=== PATIENT | male | born 1950 ===

== ENCOUNTER 2020-05-14 08:52 | Outpatient (REF) | payer OTHER, SELFPAY ==
[2020-05-14 13:39] LABS: MANUAL DIFF FLAG NO
[2020-05-14 13:58] LABS: Basophils Percent Auto 0.4 % (0-2); Eosinophils Absolute Auto 0.4 X10*3/uL (0.0-0.4); Eosinophils Percent Auto 5.9 % (0-4); Hematocrit 41.6 % (42-52); Hemoglobin 13.6 g/dl (14.0-18.0); Imm Gran Abs Auto 0.05 X10*3/uL (0.00-0.03); Imm Gran Pct Auto 0.7 % (0.0-0.4); Lymphocytes Absolute Auto 1.9 X10*3/uL (1.2-4.9); Lymphocytes Percent Auto 25.3 % (20-40); Mean Corpuscular HGB Conc 32.7 g/dl (31.0-36.0); Mean Corpuscular Hemoglobin 27.7 pg (27.0-33.0); Mean Corpuscular Volume 84.7 fL (80-98); Mean Platelet Volume 11.4 fL (9.4-12.4); Monocytes Absolute Auto 0.9 X10*3/uL (0.1-1.2); Monocytes Percent Auto 11.8 % (2-11); Neutrophils Absolute Auto 4.1 X10*3/uL (2.0-8.3); Neutrophils Percent Auto 55.9 % (45-73); Platelet Count 225 X10*3/uL (160-400); Red Blood Count 4.91 X10*6/uL (4.60-5.80); Red Cell Distribution Width 13.3 % (11.0-16.0); White Blood Count 7.3 X10*3/uL (4.8-10.8)
[2020-05-14 14:08] LABS: Glucose Urine UA NEG (NEG); Leukocyte Esterase Urine NEG (NEG); Nitrite Urine NEG (NEG); Specific Gravity - Urine 1.025 (1.005-1.025); Urine Blood NEG (NEG); Urine Ketones NEG (NEG); Urine Protein NEG (NEG-TRACE)
[2020-05-14 14:23] LABS: Appearance Urine CLEAR; Color Urine YELLOW
[2020-05-14 14:26] LABS: Alanine Aminotransferase 16 U/L (0-40); Alkaline Phosphatase 74 U/L (39-117); Anion Gap 10 (12-20); Aspartate Amino Transferase 18 U/L (5-37); Bilirubin Total 0.8 mg/dL (0.0-1.0); Blood Urea Nitrogen 16 mg/dL (9-16); Calcium 8.4 mg/dL (8.4-10.2); Carbon Dioxide 32 mmol/L (22-29); Chloride 103 mmol/L (96-108); Cholesterol 143 mg/dL; Estimated Glomerular Filt Rate > 60; Glucose Fasting 107 mg/dL (60-99); HDL Cholesterol 42 mg/dL; LDL Cholesterol Calculated 84 mg/dl; Potassium 4.2 mmol/L (3.3-5.1); Sodium 141 mmol/L (135-145); Total Protein 6.7 g/dL (6.5-8.0); Triglycerides 88 mg/dL; Uric Acid 8.7 mg/dL (3.4-7.0)
[2020-05-14 14:47] LABS: Prostate Specific Antigen Scr 0.87 ng/mL (<0.05-4.0); TSH reflex Free T4 1.55 uIU/mL (0.32-4.0)
== END 2020-05-14 08:53 | disposition home or self-care (01) ==
LOC: HO.10HDL 08:52
PROVIDERS: Visit Provider Internal Medicine
DX: Z00.00 Encounter for general adult medical examination without abnormal findings (principal); I10 Essential (primary) hypertension; I25.10 Atherosclerotic heart disease of native coronary artery without angina pectoris; L81.9 Disorder of pigmentation, unspecified; E78.00 Pure hypercholesterolemia, unspecified; M10.9 Gout, unspecified; R73.01 Impaired fasting glucose; E66.3 Overweight
CPT/HCPCS: 36415; 80053; 80061; 81003; 84153; 84443; 84550; 85025

== ENCOUNTER 2020-08-21 07:38 | Outpatient (REF) | payer OTHER, SELFPAY ==
[2020-08-21 10:27] LABS: MANUAL DIFF FLAG NO
[2020-08-21 10:29] LABS: Basophils Percent Auto 0.2 % (0-2); Eosinophils Absolute Auto 0.5 X10*3/uL (0.0-0.4); Eosinophils Percent Auto 6.6 % (0-4); Hematocrit 42.1 % (42-52); Hemoglobin 13.9 g/dl (14.0-18.0); Imm Gran Abs Auto 0.04 X10*3/uL (0.00-0.03); Imm Gran Pct Auto 0.5 % (0.0-0.4); Lymphocytes Absolute Auto 1.8 X10*3/uL (1.2-4.9); Lymphocytes Percent Auto 22.1 % (20-40); Mean Corpuscular Volume 84.7 fL (80-98); Mean Platelet Volume 11.9 fL (9.4-12.4); Monocytes Absolute Auto 0.9 X10*3/uL (0.1-1.2); Monocytes Percent Auto 10.5 % (2-11); Neutrophils Absolute Auto 4.8 X10*3/uL (2.0-8.3); Neutrophils Percent Auto 60.1 % (45-73); Platelet Count 192 X10*3/uL (160-400); Red Blood Count 4.97 X10*6/uL (4.60-5.80); Red Cell Distribution Width 13.7 % (11.0-16.0); White Blood Count 8.1 X10*3/uL (4.8-10.8)
[2020-08-21 10:40] LABS: Appearance Urine CLOUDY; Color Urine YELLOW; Glucose Urine UA NEG (NEG); Leukocyte Esterase Urine NEG (NEG); Nitrite Urine NEG (NEG); Specific Gravity - Urine >= 1.030 (1.005-1.025); Urine Blood NEG (NEG); Urine Ketones NEG (NEG); Urine Protein NEG (NEG-TRACE)
[2020-08-21 10:54] LABS: Estimated Average Glucose 146 mg/dL; Hemoglobin A1c % 6.7 %
[2020-08-21 11:03] LABS: Alanine Aminotransferase 16 U/L (0-40); Albumin Level 4.2 g/dL (3.5-5.0); Alkaline Phosphatase 68 U/L (39-117); Anion Gap 13 (12-20); Aspartate Amino Transferase 16 U/L (5-37); Bilirubin Total 0.9 mg/dL (0.0-1.0); Blood Urea Nitrogen 20 mg/dL (9-16); Calcium 8.7 mg/dL (8.4-10.2); Carbon Dioxide 26 mmol/L (22-29); Chloride 110 mmol/L (96-108); Cholesterol 168 mg/dL; Estimated Glomerular Filt Rate 60; Glucose Fasting 118 mg/dL (60-99); HDL Cholesterol 42 mg/dL; LDL Cholesterol Calculated 105 mg/dl; Potassium 4.2 mmol/L (3.3-5.1); Sodium 145 mmol/L (135-145); Total Protein 6.9 g/dL (6.5-8.0); Triglycerides 106 mg/dL; Uric Acid 9.8 mg/dL (3.4-7.0)
[2020-08-21 11:18] LABS: TSH reflex Free T4 1.84 uIU/mL (0.32-4.0)
== END 2020-08-21 07:39 | disposition home or self-care (01) ==
LOC: HO.10HDL 07:38
PROVIDERS: Visit Provider Internal Medicine
DX: E66.3 Overweight (principal); E78.00 Pure hypercholesterolemia, unspecified; I10 Essential (primary) hypertension; M10.00 Idiopathic gout, unspecified site; I25.10 Atherosclerotic heart disease of native coronary artery without angina pectoris; R73.01 Impaired fasting glucose; M10.9 Gout, unspecified
CPT/HCPCS: 36415; 80053; 80061; 81003; 83036; 84443; 84550; 85025

== ENCOUNTER → 2020-11-07 10:50 | Outpatient (BNVA) | payer OTHER, SELFPAY | PROVIDERS: PCP Internal Medicine; Visit Provider Physician Assistant | DX: S93.492D Sprain of other ligament of left ankle, subsequent encounter (principal); W21.89XD Striking against or struck by other sports equipment, subsequent encounter | CPT/HCPCS: 73610; 73630; 99203 ==

== ENCOUNTER → 2020-11-09 09:32 | Outpatient (BNVA) | payer OTHER, SELFPAY | PROVIDERS: Visit Provider Orthopaedic Surgery | DX: S93.402A Sprain of unspecified ligament of left ankle, initial encounter (principal) | CPT/HCPCS: 99202 ==

== ENCOUNTER → 2020-11-23 10:01 | Outpatient (BNVA) | payer OTHER, SELFPAY | PROVIDERS: Visit Provider Physician Assistant | DX: S93.402A Sprain of unspecified ligament of left ankle, initial encounter (principal); X58.XXXA Exposure to other specified factors, initial encounter; Y93.9 Activity, unspecified; Y92.9 Unspecified place or not applicable; Y99.8 Other external cause status; I10 Essential (primary) hypertension; I25.10 Atherosclerotic heart disease of native coronary artery without angina pectoris; E11.9 Type 2 diabetes mellitus without complications; E78.00 Pure hypercholesterolemia, unspecified; M10.9 Gout, unspecified; E66.3 Overweight; Z68.29 Body mass index [BMI] 29.0-29.9, adult; L81.9 Disorder of pigmentation, unspecified; Z87.891 Personal history of nicotine dependence; Z88.8 Allergy status to other drugs, medicaments and biological substances | CPT/HCPCS: 99212 ==

== ENCOUNTER 2020-11-28 10:00 | Outpatient (RCR) | payer OTHER, SELFPAY ==
--- NOTE | 2020-11-21 15:13 | MHC.PT.EP ---
[facility] [place] Office [place] [facility] [place] [facility] [address] Kandy Flores [address] [phone] F: [phone] F: [phone] F: [phone] F: [phone] Physical Therapy Plan of Care Date of Evaluation: Date of Surgery: N/A Diagnosis: L Ankle Sprain Assessment: Pt is a 70 year old male who presents to therapy with a L ankle sprain. Self reported limitations include inability to work, difficulty walking/ascending/descending stairs, standing for > 1 hour and difficulty putting pressure through his foot. Upon examination, impairments include decreased ankle ROM, decreased ankle strength, tight gastroc/soleus muscles, gait impairments and increased swelling of the L ankle. Pt should benefit from skilled PT for 2x/week for 4 weeks to address the impairments listed above and will be reassessed in 4 weeks to see if further treatment is necessary. Frequency and Duration: The patient will be seen 2x/week for 4 weeks Short Term Goals: 1. Pt will be I in HEP in 2 weeks to increase self management of symptoms. 2. Pt will be able to stand for >30 minutes with pain <3/10 in 3 weeks in order to be able to return to work. Longterm Goals: 1. Pt will increase ankle ROM to WFL in 4 weeks to increase pt's ability to ascend/descend stairs. 2. Pt will increase all ankle MMT by 1 grade in 4 weeks in order to ambulate without pain. Treatment Plan: Modalities to reduce pain, spasms and effusion. Manual therapy to restore motion and function. Therapeutic exercise to improve strength and flexibility. Neuromuscular re-education for posture and balance. Therapeutic activities to return to functional activities of daily living. Electronically signed by: Yuly Taylor PT/s Carley Oviedo PT, DPT Please sign and return to therapist. Thank you for your referral.
--- NOTE | 2021-01-04 15:15 | MHC.PT.DC ---
[facility] [place] Office [place] [facility] [place] [facility] [address] Kandy Flores 140 [facility] [phone] F: [phone] F: [phone] F: [phone] F: [phone] Physical Therapy Discharge Report Diagnosis: L Ankle Sprain Date of Surgery: N/A Date of Evaluation: 11/21/20 Date of Discharge: 12/13/20 Treatments to Date: 3 Cancellations to Date: No Shows to Date: Discharge Status: Insurance Declined Tx Discharge Summary: Insurance did not approve coverage Electronically signed by: Carley Oviedo PT, DPT Please sign and return to therapist. Thank you for your referral.
== END 2021-01-04 15:16 | disposition home or self-care (01) ==
LOC: HO.PT 10:00
PROVIDERS: PCP Internal Medicine; Visit Provider Orthopaedic Surgery
DX: S93.402A Sprain of unspecified ligament of left ankle, initial encounter (principal)
CPT/HCPCS: 97110; 97162; 97530

== ENCOUNTER 2020-12-24 10:35 | Outpatient (REF) | payer OTHER, SELFPAY ==
[2020-12-24 13:41] LABS: MANUAL DIFF FLAG NO
[2020-12-24 13:43] LABS: Basophils Percent Auto 0.4 % (0-2); Eosinophils Absolute Auto 0.4 X10*3/uL (0.0-0.4); Eosinophils Percent Auto 4.5 % (0-4); Hematocrit 43.8 % (42.0-52.0); Hemoglobin 14.3 g/dl (14.0-18.0); Imm Gran Abs Auto 0.05 X10*3/uL (0.00-0.03); Imm Gran Pct Auto 0.6 % (0.0-0.4); Lymphocytes Absolute Auto 1.5 X10*3/uL (1.2-4.9); Lymphocytes Percent Auto 19.7 % (20-40); Mean Corpuscular HGB Conc 32.6 g/dl (31.0-36.0); Mean Corpuscular Hemoglobin 27.8 pg (27.0-33.0); Mean Platelet Volume 10.7 fL (9.4-12.4); Monocytes Absolute Auto 0.8 X10*3/uL (0.1-1.2); Monocytes Percent Auto 10.2 % (2-11); Neutrophils Percent Auto 64.6 % (45-73); Platelet Count 249 X10*3/uL (160-400); Red Blood Count 5.15 X10*6/uL (4.60-5.80); White Blood Count 7.8 X10*3/uL (4.8-10.8)
[2020-12-24 14:01] LABS: Appearance Urine CLEAR; Color Urine YELLOW; Glucose Urine UA NEG (NEG); Leukocyte Esterase Urine NEG (NEG); Nitrite Urine NEG (NEG); Specific Gravity - Urine 1.025 (1.005-1.025); Urine Blood NEG (NEG); Urine Ketones NEG (NEG); Urine Protein TRACE MG/DL (NEG-TRACE)
[2020-12-24 14:07] LABS: Alanine Aminotransferase 15 U/L (0-40); Albumin Level 4.1 g/dL (3.5-5.0); Alkaline Phosphatase 75 U/L (39-117); Anion Gap 12 (12-20); Aspartate Amino Transferase 14 U/L (5-37); Bilirubin Total 0.7 mg/dL (0.0-1.0); Blood Urea Nitrogen 21 mg/dL (9-16); Calcium 8.8 mg/dL (8.4-10.2); Carbon Dioxide 32 mmol/L (22-29); Chloride 102 mmol/L (96-108); Cholesterol 219 mg/dL; Estimated Glomerular Filt Rate > 60; Glucose Fasting 130 mg/dL (60-99); HDL Cholesterol 45 mg/dL; LDL Cholesterol Calculated 156 mg/dl; Potassium 4.2 mmol/L (3.3-5.1); Sodium 142 mmol/L (135-145); Triglycerides 94 mg/dL
[2020-12-24 14:09] LABS: Estimated Average Glucose 140 mg/dL; Hemoglobin A1c % 6.5 %
[2020-12-24 14:15] LABS: Creatinine Urine 138.19 mg/dL; Microalbum/Creatinine Ratio Ur 121.5 ug/mg cr
[2020-12-24 14:18] LABS: Uric Acid 8.8 mg/dL (3.4-7.0)
[2020-12-24 14:29] LABS: TSH reflex Free T4 1.82 uIU/mL (0.32-4.0)
== END 2020-12-24 10:36 | disposition home or self-care (01) ==
LOC: HO.10HDL 10:35
PROVIDERS: Visit Provider Internal Medicine
DX: E11.8 Type 2 diabetes mellitus with unspecified complications (principal); E78.00 Pure hypercholesterolemia, unspecified; I10 Essential (primary) hypertension; M10.9 Gout, unspecified; E66.3 Overweight
CPT/HCPCS: 36415; 80053; 80061; 81003; 82043; 83036; 84443; 84550; 85025

== ENCOUNTER → 2021-02-21 12:18 | Outpatient (BNVA) | payer OTHER, SELFPAY | PROVIDERS: Referring Provider Internal Medicine; Visit Provider Internal Medicine Cardiovascular Disease | DX: I20.8 Other forms of angina pectoris (principal); I10 Essential (primary) hypertension | CPT/HCPCS: 93005 ==

== ENCOUNTER → 2021-05-22 12:52 | Outpatient (BNVA) | payer OTHER, SELFPAY | PROVIDERS: PCP Internal Medicine; Referring Provider Internal Medicine; Visit Provider Internal Medicine Cardiovascular Disease | DX: Z13.89 Encounter for screening for other disorder (principal) ==

== ENCOUNTER → 2021-11-25 12:44 | Outpatient (BNVA) | payer OTHER, SELFPAY | PROVIDERS: PCP Internal Medicine; Referring Provider Internal Medicine; Visit Provider Internal Medicine Cardiovascular Disease | DX: L28.2 Other prurigo (principal); I20.8 Other forms of angina pectoris; I10 Essential (primary) hypertension | CPT/HCPCS: 93005 ==

== ENCOUNTER → 2022-05-15 10:52 | Outpatient (BNVA) | payer OTHER, MEDICARE, SELFPAY | PROVIDERS: PCP Internal Medicine; Referring Provider Internal Medicine; Visit Provider Internal Medicine Cardiovascular Disease | DX: Z13.89 Encounter for screening for other disorder (principal) ==

== ENCOUNTER → 2022-05-22 10:33 | Outpatient (REF) | payer OTHER, MEDICARE, SELFPAY ==
--- NOTE | 2022-05-22 10:37 | CA_ITS ---
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 Study Quality: Fair, contrast ECG Rhythm: Sinus Conclusions: - The left ventricular systolic function is moderately decreased. The visually estimated ejection fraction is between 35-40%. - The basal inferior segment is akinetic. - There is severely decreased right ventricular systolic function. - No obvious valvular pathology seen on this study. Findings Procedure Information Contrast agent, definity, is being given per protocol without apparent complications. Left Ventricle Normal left ventricular cavity size. There is mildly increased left ventricular wall thickness. The left ventricular systolic function is moderately decreased. The visually estimated ejection fraction is between 35 40%. There is moderate global hypokinesis. Diastolic function is normal for age. There is moderate septal asymmetric hypertrophy. Wall Motion Rest Echo Findings The basal inferior segment is akinetic. Right Ventricle Normal right ventricular cavity size. There is severely decreased right ventricular systolic function. Atria Both atria are normal in size. Aortic Valve There is a normal trileaflet aortic valve. There is no aortic valve stenosis. There is trace (trivial) aortic valve regurgitation. Mitral Valve The mitral valve appears normal. There is mild mitral annular calcification. There is trace mitral valve regurgitation. There is no mitral valve stenosis. Pulmonic Valve The pulmonic valve is likely normal. Tricuspid Valve There is trace tricuspid valve regurgitation. There is no evidence of pulmonary hypertension. Great Vessels The asc aorta is normal in size. Venous The inferior vena cava was not well visualized. Pericardium/Pleural There is no evidence of pericardial effusion. Prior Study Comparison Changes noted compared to prior study dated: 01/26/2019. Decrease in LVEF; see comment on wall motion. Recommendations, Care & Conclusions No obvious valvular pathology seen on this study. Measurements 2D Linear Measurements IVSd: 1.51 0.6-0.9/0.6-1.0 cm LVIDd: 3.91 3.9-5.3/4.2-5.9 cm LVIDd Index: 2.14 2.4-3.2/2.2-3.1 cm/m2 LVIDs: 2.68 2.0-3.6 cm LVPWd: 1.09 0.7-1.1 cm LA Diam: 3.30 2.7-3.8/3.0-4.0 cm LAIDs Index: 1.80 1.5-2.3 cm/m2 LV Mass: 224.76 67-162/88-224 g LV Mass Index: 122.82 43-95/49-115 g/m2 LVOT Diam: 2.10 3.0+(-)1.3 cm 2D Systolic Function EF 4C: 49.10 >55% EF 2C: 20.70 >55% EF BiP: 35.30 >55% Mitral Valve MV Pk E: 0.35 MV PK A: 0.75 MV Decel Time: 144.00 E/A: 0.50 E'Lateral: 4.90 E'Medial: 3.26 E/E' Med: 10.60 E/E' Lat: 7.10 PHT: 42.00 MVA PHT: 5.24 Decel Dubois: 2.42 Aortic Valve AoV Pk Yonas: 1.12 AoV Mn Yonas: 0.84 AoV VTI: 0.21 AoV Pk Grad: 5.00 Aov Mn Grad: 3.00 KAREN Cont.VTI: 2.42 LVOT LVOT Pk Yonas: 0.76 LVOT Mn Yonas: 0.53 LVOT VTI: 0.14 LVOT Pk Grad: 2.00 LVOT Mn Grad: 1.00 LVOT Diam: 2.10 LVOT Area: 3.46 Diastolic Function MV Pk E: 0.35 MV Pk A: 0.75 E/A: 0.50 E'Medial: 3.26 E/E' Med: 10.60 E' Laterial: 4.90 E/E' Lat: 7.10 Right Ventricle TAPSE (mm): 6.08 TVS' Yonas: 4.79 Tricuspid Valve TR Pk Yonas: 1.94 TR Pk Grad: 15.00 Great Vessels Aorta Sinus of Valsalva: 3.29 2.0-3.[address] Ridge: 2.56 1.7-3.4 cm Ao Asc: 3.50 2.1-3.4 cm Updated in Other Vendor System with Status of Final Earl Escamilla MD electronically signed on 05/23/2022 1:41:14 PM with status of Final
== END ==
LOC: HO.CARD 10:33
PROVIDERS: PCP Internal Medicine; Visit Provider Internal Medicine Cardiovascular Disease
DX: I25.10 Atherosclerotic heart disease of native coronary artery without angina pectoris (principal)
CPT/HCPCS: 93306; Q9957

== ENCOUNTER → 2022-08-27 10:20 | Outpatient (BNVA) | payer OTHER, SELFPAY ==
[2022-07-08 10:22] VITALS: BP 110/68; BP 112/76; BP 130/70; BMI 26.0
== END ==
PROVIDERS: PCP Internal Medicine; Visit Provider Internal Medicine Cardiovascular Disease
DX: I25.5 Ischemic cardiomyopathy (principal); I11.9 Hypertensive heart disease without heart failure; I25.2 Old myocardial infarction; Z95.1 Presence of aortocoronary bypass graft; Z87.891 Personal history of nicotine dependence
CPT/HCPCS: 93005

== ENCOUNTER → 2022-11-14 08:44 | Outpatient (REF) | payer OTHER, SELFPAY ==
[2022-07-08 10:22] VITALS: BP 110/68; BP 112/76; BP 130/70; BMI 26.0
--- NOTE | 2022-11-14 08:46 | CA_ITS ---
Transthoracic Echocardiogram Patient (Last, First, Middle): Therese Rizvi M Gender: Male Date of : 1950 Age: 72 Procedure Date: 11/14/2022 Procedure Type: Transthoracic Echocardiogram Location: OP Height: 162.56 cm Weight: 65.77 kg BSA: 1.71 m2 Heart Rate: bpm BP: 158 / 94 mmHg Monogram Maker: TO Referring MD: Lakhwinder Booker MD Green Chain Puller: Lakhwinder Booker MD Symptoms: I25.5 - Ischemic cardiomyopathy Study Quality: Fair/Contrast Conclusions: - Normal left ventricular size and systolic function. There is mildly increased left ventricular wall thickness. The visually estimated ejection fraction is between 55-60%. - The basal inferior segment is akinetic. - Normal right ventricular cavity size. There is mild to moderately decreased right ventricular systolic function. Findings Left Ventricle Normal left ventricular size and systolic function. There is mildly increased left ventricular wall thickness. The visually estimated ejection fraction is between 55-60%. There is evidence of regional wall motion abnormalities. Abnormal diastolic function is noted. Spectral Doppler is indicative of an impaired relaxation filling pattern. E/E prime ratio is between 8 and 15 consistent with indeterminate filling pressures. There is moderate septal asymmetric hypertrophy. Wall Motion Rest Echo Findings The basal inferior segment is akinetic. Right Ventricle Normal right ventricular cavity size. There is mild to moderately decreased right ventricular systolic function. Atria The left atrium is moderately dilated. Aortic Valve There is a normal trileaflet aortic valve. There is no aortic valve stenosis. There is trace (trivial) aortic valve regurgitation. Mitral Valve The mitral valve appears normal. There is mild mitral annular calcification. There is trace mitral valve regurgitation. There is no mitral valve stenosis. Pulmonic Valve The pulmonic valve is likely normal. Tricuspid Valve Normal tricuspid valve structure. Normal right atrial pressure. There is no evidence of pulmonary hypertension. Great Vessels All visible segments of the aorta are normal in size. The visualized portions of the pulmonary artery and branches are normal. Venous The inferior vena cava is normal in size and collapses greater than 50% with inspiration. Pericardium/Pleural There is no evidence of pericardial effusion. Prior Study Comparison Changes noted compared to prior study dated: 05/22/2022. LV function normal, mild to moderate RV dysfunction. Measurements 2D Linear Measurements IVSd: 1.44 0.6-0.9/0.6-1.0 cm LVIDd: 3.39 3.9-5.3/4.2-5.9 cm LVIDd Index: 1.98 2.4-3.2/2.2-3.1 cm/m2 LVIDs: 2.25 2.0-3.6 cm LVPWd: 1.20 0.7-1.1 cm LA Diam: 3.60 2.7-3.8/3.0-4.0 cm LAIDs Index: 2.11 1.5-2.3 cm/m2 LV Mass: 187.51 67-162/88-224 g LV Mass Index: 109.65 43-95/49-115 g/m2 LVOT Diam: 2.00 3.0+(-)1.3 cm 2D Systolic Function EF 4C: 55.70 >55% EF 2C: 56.60 >55% EF BiP: 55.90 >55% Mitral Valve MV Pk E: 0.61 MV PK A: 0.71 MV Decel Time: 146.00 E/A: 0.90 E'Lateral: 6.74 E'Medial: 3.37 E/E' Med: 18.00 E/E' Lat: 9.00 PHT: 43.00 MVA PHT: 5.12 Decel Jack: 4.16 Aortic Valve AoV Pk Yonas: 1.13 AoV Mn Yonas: 0.82 AoV VTI: 0.25 AoV Pk Grad: 5.00 Aov Mn Grad: 3.00 KAREN Cont.VTI: 2.18 LVOT LVOT Pk Yonas: 0.75 LVOT Mn Yonas: 0.56 LVOT VTI: 0.17 LVOT Pk Grad: 2.00 LVOT Mn Grad: 1.00 LVOT Diam: 2.00 LVOT Area: 3.14 Diastolic Function MV Pk E: 0.61 MV Pk A: 0.71 E/A: 0.90 E'Medial: 3.37 E/E' Med: 18.00 E' Laterial: 6.74 E/E' Lat: 9.00 Right Ventricle TAPSE (mm): 12.60 TVS' Yonas: 7.29 Tricuspid Valve TR Pk Yonas: 2.42 TR Pk Grad: 23.00 RA Press: 3.00 RVSP: 26.00 Great Vessels Aorta Sinus of Valsalva: 3.23 2.0-3.5 cm Updated in Other Vendor System with Status of Final Lakhwinder Booker MD electronically signed on 11/15/2022 7:38:13 PM with status of Final
== END ==
LOC: HO.CARD 08:44
PROVIDERS: PCP Internal Medicine; Visit Provider Internal Medicine Cardiovascular Disease
DX: I25.5 Ischemic cardiomyopathy (principal)
CPT/HCPCS: 93306; Q9957

== ENCOUNTER → 2022-11-14 08:46 | Outpatient (BNV) | payer OTHER, SELFPAY ==
[2022-07-08 10:22] VITALS: BP 110/68; BP 112/76; BP 130/70; BMI 26.0
== END ==
PROVIDERS: PCP Internal Medicine; Visit Provider Internal Medicine Cardiovascular Disease
DX: I25.5 Ischemic cardiomyopathy (principal); I34.81 Nonrheumatic mitral (valve) annulus calcification
CPT/HCPCS: 93306

== ENCOUNTER 2022-12-03 08:35 | Outpatient (AMB) | payer OTHER, SELFPAY ==
[2022-07-08 10:22] VITALS: BP 110/68; BP 112/76; BP 130/70; BMI 26.0
[2022-12-03 08:44] VITALS: BP 126/88; PULSE 84; O2SAT 98; BMI 26.2
--- NOTE | 2022-12-03 08:44 | MHC.PC.OV ---
Vital Signs 12/03/22 08:44 Height 5 ft 4 in Weight 152 lb 8 oz BMI 26.2 BP 126/88 Blood Pressure Location Lt brachial Position Sitting Pulse 84 Pulse Source Pulse Oximeter Pulse Oximetry (%) 98 Oxygen Delivery Method Room Air Intake Visit Reasons: 3mth f/u Manager Music Required: No Accompanied by: Self / Same As Patient Allergies ramipril Allergy (Severe, Verified 12/03/22 09:17) angioedema rosuvastatin Adverse Reaction (Intermediate, Verified 12/03/22 09:17) recurrent choking sensation in throat when taking med Medication List - Last Reconciled 12/03/22 by Raul Robles MD aspirin 81 mg PO DAILY atorvastatin 80 mg PO DAILY 90 days betamethasone dipropionate 0.05% 1 appl topical BID PRN blood sugar diagnostic (FreeStyle Lite Strips) As directed 3 times per day carvedilol 3.125 mg PO BID clopidogrel 75 mg PO DAILY 90 days colchicine (gout) (Colcrys) 0.6 mg PO DAILY 90 days diclofenac sodium 1% (Voltaren Arthritis Pain) 2 grams topical QID donepezil 10 mg PO BEDTIME 90 days doxepin 10 mg PO BEDTIME garlic 100 mg PO DAILY lancets (FreeStyle Lancets) As directed 3 times per day metformin ER 500 mg PO BID 90 days multivitamin 1 tab PO DAILY nitroglycerin (Nitrostat) 0.4 mg sublingual Q5M PRN omega-3 fatty acids 1,000 mg PO DAILY pantoprazole 40 mg PO DAILY pen needle, diabetic (Comfort EZ Pen [place]) As directed Tobacco use date assessed: 12/03/22 Fall risk assessment: No Falls in past year Last assessed Fall Risk: 12/03/22 Dental Screening Dental Screen Date: 12/03/22 Did you have a dental visit in the last 12 months?: No Did you have a dental problem in the last 6 months where you did not have access to dental care?: No Was dental information given to patient?: No HPI 3mth f/u HPI Details Patient comes in today for his follow up visit He was admitted to [facility] for a few days a couple of months ago for chest pains and TONI Cardiac work ups done were okay but he had some of his medications changed/adjusted due to hyperkalemia and TONI that was revealed on work ups States that he presently feels okay He denies any headaches or dizziness Denies any chest pains, no increased SOB No nausea/vomiting, no abdominal pain No change in bowel habits noted Needs most of his Rx refilled, including the new dosages Had his follow up labs done at [facility] a couple of weeks ago - to discuss his results [facility] Medical History (Updated 12/03/22 @ 09:34 by Raul Robles MD) Coronary artery disease involving bypass graft of transplanted heart Diabetes mellitus Overweight (BMI 25.0-29.9) Dyschromia Esophageal stricture Coronary artery disease Gout Pure hypercholesterolemia Benign essential hypertension Surgical History S/P CABG x 4 (~04/10/22) History of percutaneous coronary intervention (~2008) History of coronary angioplasty (~1998) History of colonoscopy Varicose vein of leg Family History Father Medical history unknown Mother Diabetes Hypertension Social History Housing: House Alcohol intake: current Alcohol intake frequency: holidays/special occasions only Patient Tobacco Use Status: Former Tobacco user Quit Date: 1992 Years Smoked: 25 +/- e-Cigarette/Vaping Use: Never Used Second Hand Smoke Exposure: No service: No Current occupational status: retired Cognitive needs: No Hearing needs: No Vision needs: No Questionnaire PHQ-9 Over the last 2 weeks, how often have you been bothered by any of the following problems? 1. Little interest or pleasure in doing things: nearly every day 2. Feeling down, depressed, or hopeless: nearly every day 3. Trouble falling or staying asleep, or sleeping too much: nearly every day 4. Feeling tired or having little energy: nearly every day 5. Poor appetite or overeating: nearly every day 6. Feeling bad about yourself - or that you are a failure or have let yourself or your family down: nearly every day 7. Trouble concentrating on things, such as reading the newspaper or watching television: not at all 8. Moving or speaking so slowly that other people could have noticed. Or the opposite - being so fidgety or restless that you have been moving around a lot more than usual: not at all 9. Thoughts that you would be better off or of hurting yourself in some way: not at all Total score: 18 Depression Screening Interpretation: Positive Depression Screening Follow-up: Existing condition and In treatment Depression Screening Done: Yes 86525 - PHQ-9 Billing: Yes Source: Developed by Drs. Johnny Cuellar, Lilly Belle, Marcus Chambers and colleagues, with an educational lillie from [employer]. Thrive Questionnaire Date Thrive assessed: 12/03/22 I am a: Patient What is your living situation today?: I have a steady place to live Within the past 12 months, did the food you bought not last and you didn't have the money to get more?: Never true Within the past 12 months, did you worry whether your food would run out before you got money to buy more?: Never true Do you have trouble paying for medicines?: No Do you have trouble getting transportation to medical appointments?: No Do you have trouble paying your heating and electricity bill?: No Do you have trouble taking care of your child, family member or friend?: No Do you have trouble with day-to-day activities such as bathing, preparing meals, shopping, managing finances, etc.?: No Are you currently unemployed and looking for a job?: No Are you interested in more education?: No Please select the resources that you would like help with: None Currently or been in a relationship where the following occur: no concerns reported AUDIT C Alcohol Use Questionnaire (AUDIT-C) 1. How often do you have a drink containing alcohol?: Never 3. How often do you have six or more drinks on one occasion?: Never Total Score: 0 Score Reviewed/Action Taken: Yes KAITLYN-7 AMB Questionnaire KAITLYN-7 Date KAITLYN - 7 assessed: 12/03/22 Feeling nervous, anxious, or on edge: 3 = Nearly every day Not being able to stop or control worryin = Nearly every day Worrying too much about different things: 3 = Nearly every day Trouble relaxin = Nearly every day Being so restless that it is hard to sit still: 3 = Nearly every day Becoming easily annoyed or irritable: 3 = Nearly every day Feeling afraid as if something awful might happen: 0 = Not at all Total KAITLYN-7 score (0-4 normal; 5-9 mild; 10-14 moderate; 15-21 severe): 18 Source: Developed by Drs. Johnny Cuellar, Lilly Belle, Marcus Chambers and colleagues, with an educational lillie from [employer]. Review of Systems Const Denies chills, Reports fatigue, Denies fever(s) and Denies headache(s) ENT Denies dysphagia, Denies dizziness, Denies otalgia, Denies headache(s), Denies odynophagia and Denies sore throat Card Denies chest pain, Denies rapid heart rate, Denies palpitations and Denies dyspnea Resp Denies cough and Denies dyspnea GI Denies abdominal pain, Denies constipation, Denies dysphagia, Denies heartburn, Denies diarrhea, Denies nausea, Denies odynophagia and Denies vomiting Denies dysuria, Denies nocturia and Denies urinary frequency Musc Denies joint swelling Skin/Breast Details: (+) scattered patchy erythematous/hyperpigmented lesions, especially over his lower back Neuro Denies dizziness and Denies headache(s) Endo Reports fatigue and Denies palpitations Physical exam (Primary Care) Vital Signs: Last Vital Signs Pulse 84 12/03/22 08:44 BP 126/88 12/03/22 08:44 Pulse Ox 98 12/03/22 08:44 Oxygen Delivery Method Room Air 12/03/22 08:44 BMI result Body Mass Index 26.2 Tobacco/Smoking Status: Tobacco use Status Tobacco use date assessed 12/03/22 12/03/22 08:55 Patient Tobacco Use Status Former Tobacco user 12/03/22 08:55 Tobacco use type 08/27/22 10:46 e-Cigarette/Vaping Use Never Used 12/03/22 08:55 PHQ-9: PHQ-9 Score PHQ-9: Total score 18 12/03/22 08:55 Depression Screening Interpretation: Positive Depression Screening Follow-up: Existing condition and In treatment Thrive Assessment: Date of Thrive Assessment Date Thrive assessed 12/03/22 12/03/22 08:55 Currently or been in a relationship where the following occur: no concerns reported Const General: no acute distress and alert HENMT Ears: TM's normal bilaterally and EAC's normal Throat: Yes posterior oropharynx normal and Yes tonsils normal (no TP congestion noted) Neck Neck: Yes no lymphadenopathy and Yes supple Resp Auscultation: clear to auscultation bilaterally, no rales and no wheezes Cardio Rate: regular rate Rhythm: regular rhythm Heart sounds: no murmurs GI Palpation (GI): Soft to palpation and nontender Auscultation: normal bowel sounds General: Yes no CVA tenderness Back/Spine/Pelvis Back: no CVA tenderness Skin Other: (+) scattered patchy hyperpigmented lichenified lesions, with large patches of similar lesions over his lower back Extrem General: Yes no clubbing, cyanosis or edema Assessment and Plan Assessment & Plan (1) Coronary artery disease: Comment: S/P multiple interventions - 1998, 2008 and 2022 (see surgical Hx) Code(s): I25.10 - Atherosclerotic heart disease of [place] coronary artery without angina pectoris Qualifiers: Coronary Disease-Associated Artery/Lesion type: [place] artery [place] vs. transplanted heart: [place] heart Associated angina: without angina Qualified Code(s): I25.10 - Atherosclerotic heart disease of [place] coronary artery without angina pectoris Plan: S/P multiple cardiac interventions over the years, most recently CABG x 4 (RASCON to LAD, SVG to PDA, SVG to distal circumflex and SVG to OM) on 04/10/[address] Yuly Washington at [facility] Continue low dose Aspirin 81 mg QD and Clopidogrel 75 mg QD; continue Carvedilol 3.125 mg BID (dose lowered in September 2022 due to TONI) Follow up with cardiology (Dr. Booker) as scheduled (2) NSTEMI (non-ST elevated myocardial infarction): Code(s): I21.4 - Non-ST elevation (NSTEMI) myocardial infarction Plan: Was found to be in NSTEMI on work ups when he presented to the ER at [facility] on 04/02/2022 with chest discomfort Coronary angiogram revealed multivessel (4-vessel) disease with 80% stenosis of the proximal LAD, 95% stenosis of the left circumflex and 70% stenosis of the mid RCA He eventually underwent coronary intervention with CABG x 4 Continue aggressive risk factor reduction, including BP, cholesterol and DM Is presently asymptomatic from cardiac standpoint Follow up with cardiology as scheduled (3) Pure hypercholesterolemia: Code(s): E78.00 - Pure hypercholesterolemia, unspecified Plan: Results of his labs done at [facility] a couple of weeks ago reviewed and discussed with patient and his His cholesterol numbers have improved from previous - LDL cholesterol was at 64 mg/dl and TC at 120 mg/dl (LDL cholesterol is at goal at <70 mg/dl) Reinforced low cholesterol diet Continue Atorvastatin 80 mg QD Will recheck his labs and fasting lipids in 4 months for follow up - orders are printed out and handed to patient as he will again be getting his labs and work ups done at [facility] (4) Diabetes mellitus: Code(s): E11.9 - Type 2 diabetes mellitus without complications Qualifiers: Diabetes mellitus type: type 2 Diabetes mellitus group home insulin use: without salvage determiner use Diabetes mellitus complication status: without complication Qualified Code(s): E11.9 - Type 2 diabetes mellitus without complications Plan: His HgbA1c was at 5.3% on his labs done a couple of weeks ago (was at 6.5% a few months ago) - goal is at least < 7.0% Reinforced low calorie diet/exercise as tolerated Continue Metformin ER 500 mg BID; Lantus 10 units QD was discontinued during his recent hospitalization a couple of months ago (5) Benign essential hypertension: Code(s): I10 - Essential (primary) hypertension Plan: Reinforced low sodium diet - goal is systolic BP of 120 mm or less in light of his recent NSTEMI and CABG Continue Carvedilol 3.125 mg BID; Amlodipine 10 mg, HCTZ 25 mg, Spironolactone 25 mg and Furosemide 20 mg were all discontinued back in September 2022 when he was admitted for TONI and hyperkalemia His BP remains well-controlled on Carvedilol alone at present (6) Gout: Code(s): M10.9 - Gout, unspecified Qualifiers: Gout site: unspecified site Gout etiology: idiopathic Chronicity: unspecified Qualified Code(s): M10.00 - Idiopathic gout, unspecified site Plan: Patient's serum uric acid level remains slightly elevated at 8.1 when checked a couple of weeks ago Reinforced low purine diet - states that he's had no acute flare ups of gout lately Continue Colchicine 0.6 mg QD; Allopurinol 100 mg and Tramadol were both discontinued in September 2022 (7) Esophageal stricture: Code(s): K22.2 - Esophageal obstruction Plan: Barium swallow done a couple of years ago showed (+) stricture/narrowing at the distal esophageal area Continue Pantoprazole 40 mg QD Follow up with GI as scheduled (8) Memory impairment: Code(s): R41.3 - Other amnesia Plan: Suspect MCI vs early dementia Continue Donepezil 10 mg Q HS Continue Doxepin 10 mg Q HS PRN to help with his anxiety at night Was referred to neurology for further evaluation and management previously but he has not been seen yet; is unclear about scheduling since he has been dealing with his cardiac issues and more recently, his renal problems (9) Pruritic rash: Code(s): L28.2 - Other prurigo Plan: Was seen by [facility] a few months ago and diagnosed as Eczema / lichen simplex chronicus (neurodermatitis) Will continue him on augmented topical Betamethasone cream 0.05% BID for now - Rx refilled Follow up with dermatology as scheduled (10) Dyschromia: Code(s): L81.9 - Disorder of pigmentation, unspecified Plan: Was seen by dermatology a couple of years ago and 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 Panel Fast 4 Months E78.00 - Pure hypercholesterolemia, unspecified Lipid Panel 4 Months E78.00 - Pure hypercholesterolemia, unspecified B Type Natriuretic Peptide 4 Months I50.9 - Heart failure, unspecified Uric Acid 4 Months M10.9 - Gout, unspecified Complete Blood Count Auto Diff 4 Months I10 - Essential (primary) hypertension Microalbumin, Random (w Creat) 4 Months E11.9 - Type 2 diabetes mellitus without complications TSH reflex Free T4 4 Months E78.00 - Pure hypercholesterolemia, unspecified Vitamin D 25-OH Total 4 Months E55.9 - Vitamin D deficiency, unspecified Hemoglobin A1c 4 Months E11.9 - Type 2 diabetes mellitus without complications UA CC w/rflx Micro + Cult 4 Months R30.0 - Dysuria Medications: New carvedilol must administer with a meal/food 3.125 mg PO BID 90 days 180 tabs 3RF pantoprazole 40 mg PO DAILY 90 days 90 tabs 3RF Changed From donepezil 10 mg PO BEDTIME 30 days 30 tabs 5RF R41.3 - Other amnesia To donepezil 10 mg PO BEDTIME 90 days 90 tabs 3RF R41.3 - Other amnesia Refilled clopidogrel 75 mg PO DAILY 90 days 90 tabs 3RF betamethasone dipropionate 0.05% 1 appl topical BID PRN 60 mL 5RF skin irritation L28.2 - Other prurigo colchicine (gout) (Colcrys) 0.6 mg PO DAILY 90 days 90 tabs 3RF M10.9 - Gout, unspecified blood sugar diagnostic (FreeStyle Lite Strips) As directed 3 times per day 100 ea 12RF E11.9 - Type 2 diabetes mellitus without complications lancets (FreeStyle Lancets) As directed 3 times per day 100 ea 12RF E11.9 - Type 2 diabetes mellitus without complications atorvastatin 80 mg PO DAILY 90 days 90 tabs 3RF E78.00 - Pure hypercholesterolemia, unspecified, I25.10 - Atherosclerotic heart disease of [place] coronary artery without angina pectoris metformin ER 500 mg PO BID 90 days 180 tabs 3RF E11.9 - Type 2 diabetes mellitus without complications Coding Level of Care Code Est Pt Level 4 (02206) Diagnoses Coronary artery disease involving [place] coronary artery of [place] heart without angina pectoris I25.10 Coronary Disease-Associated Artery/Lesion type: [place] artery [place] vs. transplanted heart: [place] heart Associated angina: without angina NSTEMI (non-ST elevated myocardial infarction) I21.4 Pure hypercholesterolemia E78.00 Type 2 diabetes mellitus without complication, without long-term current use of insulin E11.9 Diabetes mellitus type: type 2 Diabetes mellitus salvage determiner insulin use: without salvage determiner use Diabetes mellitus complication status: without complication Benign essential hypertension I10 Idiopathic gout, unspecified chronicity, unspecified site M10.00 Gout site: unspecified site Gout etiology: idiopathic Chronicity: unspecified Esophageal stricture K22.2 Memory impairment R41.3 Pruritic rash L28.2 Dyschromia L81.9 Overweight (BMI 25.0-29.9) E66.3
== END 2022-12-03 09:40 | disposition home or self-care (01) ==
PROVIDERS: PCP Internal Medicine; Visit Provider Internal Medicine
DX: I25.10 Atherosclerotic heart disease of native coronary artery without angina pectoris (principal); I21.4 Non-ST elevation (NSTEMI) myocardial infarction; E78.00 Pure hypercholesterolemia, unspecified; E11.9 Type 2 diabetes mellitus without complications; I10 Essential (primary) hypertension; M10.00 Idiopathic gout, unspecified site; K22.2 Esophageal obstruction; R41.3 Other amnesia; L28.2 Other prurigo; L81.9 Disorder of pigmentation, unspecified; E66.3 Overweight
CPT/HCPCS: 99214

== ENCOUNTER 2022-12-04 09:11 | Outpatient (AMB) | payer OTHER, SELFPAY ==
[2022-07-08 10:22] VITALS: BP 110/68; BP 112/76; BP 130/70; BMI 26.0
--- NOTE | 2022-12-04 09:33 | A.OFFVIS_ITS ---
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 Accompanied by: Spouse Allergies ramipril Allergy (Severe, Verified 12/04/22 09:37) angioedema rosuvastatin Adverse Reaction (Intermediate, Verified 12/04/22 09:37) recurrent choking sensation in throat when taking med Medication List - Last Reconciled 12/04/22 by Pastora Clark NP-C aspirin 81 mg PO DAILY atorvastatin 80 mg PO DAILY 90 days betamethasone dipropionate 0.05% 1 appl topical BID PRN blood sugar diagnostic (FreeStyle Lite Strips) As directed 3 times per day carvedilol 3.125 mg PO BID 90 days clopidogrel 75 mg PO DAILY 90 days colchicine (gout) (Colcrys) 0.6 mg PO DAILY 90 days diclofenac sodium 1% (Voltaren Arthritis Pain) 2 grams topical QID donepezil 10 mg PO BEDTIME 90 days doxepin 10 mg PO BEDTIME garlic 100 mg PO DAILY lancets (FreeStyle Lancets) As directed 3 times per day metformin ER 500 mg PO BID 90 days multivitamin 1 tab PO DAILY omega-3 fatty acids 1,000 mg PO DAILY pantoprazole 40 mg PO DAILY 90 days pen needle, diabetic (Comfort EZ Pen [place]) As directed HPI 3 m,th f/up KM HPI Details Therese is a 72-year-old male with past medical history of hypertension, hyperlipidemia, diabetes, CAD, coronary artery bypass grafting 03/2022, ischemic cardiomyopathy, RV dysfunction who presents for follow-up after recent echocardiogram. Today he reports that he has been doing well since his last visit in August. He has no concerning symptoms. He denies chest discomfort at rest or with activity. No concerning shortness of breath, palpitations, presyncope, syncope, PND, orthopnea or edema. He ambulates with a cane for balance. He is taking medications as directed. No bleeding issues reported. is present. [facility] Medical History Coronary artery disease involving bypass graft of transplanted heart Diabetes mellitus Overweight (BMI 25.0-29.9) Dyschromia Esophageal stricture Coronary artery disease Gout Pure hypercholesterolemia Benign essential hypertension Surgical History S/P CABG x 4 (~04/10/22) History of percutaneous coronary intervention (~2008) History of coronary angioplasty (~1998) History of colonoscopy Varicose vein of leg Family History Father Medical history unknown Mother Diabetes Hypertension Social History Housing: House Alcohol intake: current Alcohol intake frequency: holidays/special occasions only Patient Tobacco Use Status: Former Tobacco user Quit Date: 1992 Years Smoked: 25 +/- e-Cigarette/Vaping Use: Never Used Second Hand Smoke Exposure: No service: No Current occupational status: retired Cognitive needs: No Hearing needs: No Vision needs: No Review of Systems Const All systems reviewed & are unremarkable except as noted in HPI and below ENT Denies dizziness Card Denies chest pain, Denies chest pain at rest, Denies chest pain with activity, Denies rapid heart rate, Denies pedal edema, Denies edema, Denies leg edema, Denies lightheadedness, Denies palpitations, Denies dyspnea, Denies dyspnea on exertion and Denies orthopnea Resp Denies cough, Denies dyspnea and Denies dyspnea on exertion GI Denies hematochezia and Denies change in stool character Musc Denies abnormal gait, Denies limited range of motion, Denies muscle cramps, Denies muscle weakness, Denies numbness, Denies radiating pain into limb, Denies stiffness and Denies tingling Neuro Denies abnormal gait, Denies dizziness, Denies numbness and Denies tingling Endo Denies palpitations Physical Exam Vital Signs: Last Vital Signs Pulse 80 12/04/22 09:34 BP 132/80 12/04/22 09:34 BMI result Body Mass Index 26.4 Const General: cooperative, healthy appearing, comfortable and no acute distress Orientation/consciousness: patient oriented x3 Neck Neck: Yes normal visual inspection Resp Effort & Inspection: normal respiratory effort Auscultation: clear to auscultation bilaterally, no crackles, no rales, no rhonchi and no wheezes Cardio Jugular venous distension: no JVD Rate: regular rate Rhythm: regular rhythm Heart sounds: S1 normal heart sound present, S2 normal heart sound present, no murmurs and no rubs Neuro General: patient oriented x3 Extrem General: Yes normal to inspection Psych Appearance: grossly normal Mental Status: mental status grossly normal Speech and movement: Normal speech and movement present Assessment & Plan Assessment & Plan (1) Coronary artery disease: Comment: S/P multiple interventions - 1998, 2008 and 2022 (see surgical Hx) Code(s): I25.10 - Atherosclerotic heart disease of [place] coronary artery without angina pectoris Qualifiers: Coronary Disease-Associated Artery/Lesion type: [place] artery [place] vs. transplanted heart: [place] heart Associated angina: without angina Qualified Code(s): I25.10 - Atherosclerotic heart disease of [place] coronary artery without angina pectoris Plan: History of CAD with prior stents. Underwent coronary artery bypass grafting to 2022 following catheterization which showed multivessel CAD. Echocardiogram in April 2022 showed EF 35-40%, inferior akinesis, severe decrease in the RV systolic function. He has been on appropriate med management with aspirin indefinitely, Plavix, high-dose atorvastatin. He had been on valsartan and PCP no indicates he had been admitted to [facility] in September 2022 for TONI and h yperkalemia. His valsartan was stopped at that time. He did undergo repeat echocardiogram on 11/14/2022 showing EF 55-60%, basal inferior akinetic, [id number] decrease in the RV systolic function. Review test results with him. He tells me he has been feeling well with no concerning symptoms. He does light physical activity, no routine exercise. On examination he has no clinical signs of heart failure. Blood pressure currently well controlled. Continue current med management. Lab orders are pending in our system. Cardiology office visit in 4 months, sooner if needed. This will be 1 year post coronary artery bypass grafting. (2) S/P CABG (coronary artery bypass graft): Code(s): Z95.1 - Presence of aortocoronary bypass graft (3) Ischemic cardiomyopathy: Code(s): I25.5 - Ischemic cardiomyopathy Plan: Improvement in EF on recent echo as above (4) Right ventricular dysfunction: Code(s): I51.9 - Heart disease, unspecified Plan: Previously severe, now [id number] (5) Benign essential hypertension: Code(s): I10 - Essential (primary) hypertension Plan: Well controlled at present. Continue current med management. (6) Pure hypercholesterolemia: Code(s): E78.00 - Pure hypercholesterolemia, unspecified Plan: [place] LDL goal less than 70. Continue high-dose atorvastatin. Labs orders in p lace. Coding Level of Care Code Est Pt Level 4 (04709) Diagnoses Coronary artery disease involving [place] coronary artery of [place] heart without angina pectoris I25.10 Coronary Disease-Associated Artery/Lesion type: [place] artery [place] vs. transplanted heart: [place] heart Associated angina: without angina S/P CABG (coronary artery bypass graft) Z95.1 Ischemic cardiomyopathy I25.5 Right ventricular dysfunction I51.9 Benign essential hypertension I10 Pure hypercholesterolemia E78.00 Time Spent (min) 28
[2022-12-04 09:34] VITALS: BP 132/80; PULSE 80; BMI 26.4
== END 2022-12-04 10:02 | disposition home or self-care (01) ==
PROVIDERS: PCP Internal Medicine; Visit Provider Nurse Practitioner Family
DX: I25.10 Atherosclerotic heart disease of native coronary artery without angina pectoris (principal); Z95.1 Presence of aortocoronary bypass graft; I25.5 Ischemic cardiomyopathy; I51.9 Heart disease, unspecified; I10 Essential (primary) hypertension; E78.00 Pure hypercholesterolemia, unspecified
CPT/HCPCS: 99214

== ENCOUNTER → 2022-12-04 09:11 | Outpatient (BNVA) | payer OTHER, SELFPAY ==
[2022-07-08 10:22] VITALS: BP 110/68; BP 112/76; BP 130/70; BMI 26.0
== END ==
PROVIDERS: PCP Internal Medicine; Visit Provider Nurse Practitioner Family

== ENCOUNTER 2023-04-09 09:04 | Outpatient (AMB) | payer OTHER, MEDICARE, SELFPAY ==
[2022-07-08 10:22] VITALS: BP 110/68; BP 112/76; BP 130/70; BMI 26.0
[2023-04-09 09:07] VITALS: BP 136/82; PULSE 67; O2SAT 98; BMI 28.5
--- NOTE | 2023-04-09 09:07 | A.OFFPC_ITS ---
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: No Accompanied by: Self / Same As Patient Allergies ramipril Allergy (Severe, Verified 04/09/23 09:43) angioedema rosuvastatin Adverse Reaction (Intermediate, Verified 04/09/23 09:43) recurrent choking sensation in throat when taking med Medication List - Last Reconciled 04/09/23 by Raul Robles MD aspirin 81 mg PO DAILY atorvastatin 80 mg PO DAILY 90 days betamethasone dipropionate 0.05% 1 appl topical BID PRN blood sugar diagnostic (FreeStyle Lite Strips) As directed 3 times per day carvedilol 3.125 mg PO BID 90 days clopidogrel 75 mg PO DAILY 90 days colchicine (Colcrys) 0.6 mg PO DAILY 90 days diclofenac sodium 1% (Voltaren Arthritis Pain) 2 grams topical QID donepezil 10 mg PO BEDTIME 90 days doxepin 10 mg PO BEDTIME garlic 100 mg PO DAILY lancets (FreeStyle Lancets) As directed 3 times per day metformin ER 500 mg PO BID 90 days multivitamin 1 tab PO DAILY omega-3 fatty acids 1,000 mg PO DAILY pantoprazole 40 mg PO DAILY 90 days pen needle, diabetic (Comfort EZ Pen [place]) As directed Tobacco use date assessed: 04/09/23 Fall risk assessment: No Falls in past year Last assessed Fall Risk: 04/09/23 Dental Screening Dental Screen Date: 04/09/23 Did you have a dental visit in the last 12 months?: No Did you have a dental problem in the last 6 months where you did not have access to dental care?: No Was dental information given to patient?: No HPI 4mth f/u HPI Details Patient comes in today for his follow up visit States that he feels okay His states that patient has NOT been taking any of his meds for a while now and he continues to drink alcohol frequently States that he would just throw away his meds when they are given to him to take and his states that she has tried everything she can think of to convince him to take his meds and stop drinking alcohol with no success Relates that he has been drinking for a while now and that he was already drinking a lot when he had his cardiac event last year Patient denies feeling depressed He denies any headaches or dizziness Denies any chest pains, no SOB No nausea/vomiting, no abdominal pain No change in bowel habits noted Had his follow up labs done at [facility] a few weeks ago - to discuss his results [facility] Medical History (Updated 04/09/23 @ 10:23 by Raul Robles MD) Chronic kidney disease, stage III (moderate) Alcoholism Lichen simplex chronicus Coronary artery disease involving bypass graft of transplanted heart Diabetes mellitus Overweight (BMI 25.0-29.9) Dyschromia Esophageal stricture Coronary artery disease Gout Pure hypercholesterolemia Benign essential hypertension Surgical History S/P CABG x 4 (~04/10/22) History of percutaneous coronary intervention (~2008) History of coronary angioplasty (~1998) History of colonoscopy Varicose vein of leg Family History Father Medical history unknown Mother Diabetes Hypertension Social History Housing: House Alcohol intake: current Alcohol intake frequency: holidays/special occasions only Patient Tobacco Use Status: Former Tobacco user Quit Date: 1992 Smoked: 25 +/- e-Cigarette/Vaping Use: Never Used Second Hand Smoke Exposure: No service: No Current occupational status: retired Cognitive needs: No Hearing needs: No Vision needs: No Questionnaire PHQ-9 Over the last 2 weeks, how often have you been bothered by any of the following problems? 1. Little interest or pleasure in doing things: nearly every day 2. Feeling down, depressed, or hopeless: nearly every day 3. Trouble falling or staying asleep, or sleeping too much: nearly every day 4. Feeling tired or having little energy: nearly every day 5. Poor appetite or overeating: nearly every day 6. Feeling bad about yourself - or that you are a failure or have let yourself or your family down: nearly every day 7. Trouble concentrating on things, such as reading the newspaper or watching television: not at all 8. Moving or speaking so slowly that other people could have noticed. Or the opposite - being so fidgety or restless that you have been moving around a lot more than usual: not at all 9. Thoughts that you would be better off or of hurting yourself in some way: not at all Total score: 18 Depression Screening Interpretation: Positive Depression Screening Follow-up: Existing condition and In treatment Depression Screening Done: Yes 85396 - PHQ-9 Billing: Yes Source: Developed by Drs. Johnny Cuellar, Lilly Belle, Marcus Chambers and colleagues, with an educational lillie from [employer] Thrive Questionnaire Date Thrive assessed: 04/09/23 I am a: Patient What is your living situation today?: I have a steady place to live Within the past 12 months, did the food you bought not last and you didn't have the money to get more?: Never true Within the past 12 months, did you worry whether your food would run out before you got money to buy more?: Never true Do you have trouble paying for medicines?: No Do you have trouble getting transportation to medical appointments?: No Do you have trouble paying your heating and electricity bill?: No Do you have trouble taking care of your child, family member or friend?: No Do you have trouble with day-to-day activities such as bathing, preparing meals, shopping, managing finances, etc.?: No Are you currently unemployed and looking for a job?: No Are you interested in more education?: No Please select the resources that you would like help with: None Currently or been in a relationship where the following occur: no concerns reported THRIVE Score: 0 AUDIT C Alcohol Use Questionnaire (AUDIT-C) 1. How often do you have a drink containing alcohol?: Never 3. How often do you have six or more drinks on one occasion?: Never Total Score: 0 Score Reviewed/Action Taken: Yes KAITLYN-7 AMB Questionnaire KAITLYN-7 Date KAITLYN - 7 assessed: 04/09/23 Feeling nervous, anxious, or on edge: 3 = Nearly every day Not being able to stop or control worryin = Nearly every day Worrying too much about different things: 3 = Nearly every day Trouble relaxin = Nearly every day Being so restless that it is hard to sit still: 3 = Nearly every day Becoming easily annoyed or irritable: 3 = Nearly every day Feeling afraid as if something awful might happen: 0 = Not at all Total KAITLYN-7 score (0-4 normal; 5-9 mild; 10-14 moderate; 15-21 severe): 18 Source: Developed by Drs. Johnny Cuellar, Lilly Belle, Marcus Chambers and colleagues, with an educational lillie from [employer] Review of Systems Const Denies chills, Reports fatigue, Denies fever(s) and Denies headache(s) ENT Denies dysphagia, Denies dizziness, Denies otalgia, Denies headache(s), Denies odynophagia and Denies sore throat Card Denies chest pain, Denies rapid heart rate, Denies palpitations and Denies dyspnea Resp Denies cough and Denies dyspnea GI Denies abdominal pain, Denies constipation, Denies dysphagia, Denies heartburn, Denies diarrhea, Denies nausea, Denies odynophagia and Denies vomiting Denies dysuria, Denies nocturia and Denies urinary frequency Musc Denies joint swelling Neuro Denies dizziness and Denies headache(s) Endo Reports fatigue and Denies palpitations Physical exam (Primary Care) Vital Signs: Last Vital Signs Pulse 67 04/09/23 09:07 BP 136/82 04/09/23 09:07 Pulse Ox 98 04/09/23 09:07 Oxygen Delivery Method Room Air 04/09/23 09:07 BMI result Body Mass Index 28.5 Tobacco/Smoking Status: Tobacco use Status Tobacco use date assessed 04/09/23 04/09/23 09:09 Patient Tobacco Use Status Former Tobacco user 04/09/23 09:09 Tobacco use type 08/27/22 10:46 e-Cigarette/Vaping Use Never Used 04/09/23 09:09 PHQ-9: PHQ-9 Score PHQ-9: Total score 18 04/09/23 09:17 Depression Screening Interpretation: Positive Depression Screening Follow-up: Existing condition and In treatment Thrive Assessment: Date of Thrive Assessment Date Thrive assessed 04/09/23 04/09/23 09:09 Currently or been in a relationship where the following occur: no concerns reported Const General: no acute distress and alert HENMT Ears: TM's normal bilaterally and EAC's normal Throat: Yes posterior oropharynx normal and Yes tonsils normal (no TP congestion noted) Neck Neck: Yes no lymphadenopathy and Yes supple Resp Auscultation: clear to auscultation bilaterally, no rales and no wheezes Cardio Rate: regular rate Rhythm: regular rhythm Heart sounds: no murmurs GI Palpation (GI): Soft to palpation and nontender Auscultation: normal bowel sounds General: Yes no CVA tenderness Back/Spine/Pelvis Back: no CVA tenderness Extrem General: Yes no clubbing, cyanosis or edema Assessment and Plan Assessment & Plan (1) Coronary artery disease: Comment: S/P multiple interventions - 1998, 2008 and 2022 (see surgical Hx) Code(s): I25.10 - Atherosclerotic heart disease of [place] coronary artery without angina pectoris Qualifiers: Coronary Disease-Associated Artery/Lesion type: [place] artery [place] vs. transplanted heart: [place] heart Associated angina: without angina Qualified Code(s): I25.10 - Atherosclerotic heart disease of [place] coronary artery without angina pectoris Plan: S/P multiple cardiac interventions over the years, most recently CABG x 4 (RASCON to LAD, SVG to PDA, SVG to distal circumflex and SVG to OM) on 04/10/[address] Yuly Washington at [facility] Continue low dose Aspirin 81 mg QD and Clopidogrel 75 mg QD; continue Carvedilol 3.125 mg BID (dose lowered in September 2022 due to TONI) Follow up with cardiology (Dr. Booker) as scheduled (2) NSTEMI (non-ST elevated myocardial infarction): Code(s): I21.4 - Non-ST elevation (NSTEMI) myocardial infarction Plan: Was found to be in NSTEMI on work ups when he presented to the ER at [facility] on 04/02/2022 with chest discomfort Coronary angiogram revealed multivessel (4-vessel) disease with 80% stenosis of the proximal LAD, 95% stenosis of the left circumflex and 70% stenosis of the mid RCA He eventually underwent coronary intervention with CABG x 4 Continue aggressive risk factor reduction, including BP, cholesterol and DM Is presently asymptomatic from cardiac standpoint Follow up with cardiology as scheduled (3) Pure hypercholesterolemia: Code(s): E78.00 - Pure hypercholesterolemia, unspecified Plan: Results of his labs done at [facility] a few weeks ago reviewed and discussed with patient and his His cholesterol numbers have increased from previous - LDL cholesterol has increased from 64 mg/dl to 93 mg/dl and TC from 120 mg/dl to 171 mg/dl (goal is LDL cholesterol at 50 to 70 mg/dl) He was on Atorvastatin 80 mg QD but his revealed that patient has refused to take all of his meds for a while now and he is just throwing them out everytime she hands him his medications to take Have discussed with patient that he should consider starting back on all of his meds or his health will continue to deteriorate Have urged him to think about his family, if not himself, and how he is letting his children down if he continues on his current path Advised that he can call at any time if he ever feels that he needs help with his drinking or if he finally realizes that he needs help with his mood/depression but he continues to deny feeling depressed at this time Will recheck his labs and fasting lipids in 4 months for follow up - orders are printed out and handed to patient as he will again be getting his labs and work ups done at [facility] (4) Diabetes mellitus: Code(s): E11.9 - Type 2 diabetes mellitus without complications Qualifiers: Diabetes mellitus type: type 2 Diabetes mellitus extermination supervisor insulin use: without extermination supervisor use Diabetes mellitus complication status: without complication Qualified Code(s): E11.9 - Type 2 diabetes mellitus without complications Plan: Cautioned that his HgbA1c has also increased 5.3% to 6.9% on his recent labs - goal is at least < 7.0% Reinforced low calorie diet/exercise as tolerated He should be on Metformin ER 500 mg BID but he has also been refusing to take this for a while now, per his - have urged patient to reconsider starting back on his meds His Lantus 10 units QD was discontinued during his recent hospitalization a couple of months ago (5) Benign essential hypertension: Code(s): I10 - Essential (primary) hypertension Plan: Reinforced low sodium diet - goal is systolic BP of 120 mm or less in light of his recent NSTEMI and CABG Continue Carvedilol 3.125 mg BID His Amlodipine 10 mg, HCTZ 25 mg, Spironolactone 25 mg and Furosemide 20 mg were all discontinued back in September 2022 when he was admitted for TONI and hyperkalemia His BP remains well-controlled on Carvedilol alone at present (6) Gout: Code(s): M10.9 - Gout, unspecified Qualifiers: Gout site: unspecified site Gout etiology: idiopathic Chronicity: unspecified Qualified Code(s): M10.00 - Idiopathic gout, unspecified site Plan: Patient's serum uric acid level has also increased from 8.1 to 8.9 on his labs done a few weeks ago Reinforced low purine diet - states that he's had no acute flare ups of gout lately He should be on Colchicine 0.6 mg QD but is also likely not taking this lately (7) Chronic kidney disease, stage III (moderate): Code(s): N18.30 - Chronic kidney disease, stage 3 unspecified Qualifiers: Chronic kidney disease stage 3 subtype: stage 3b (GFR 30-44) Qualified Code(s): N18.32 - Chronic kidney disease, stage 3b Plan: Patient is also cautioned that his renal function has declined again slightly over the past few months, and is most likely due to the increase in his weight and the recent deterioration of his glycemic control because he has not been taking his meds as prescribed Will continue to monitor his renal function closely (8) Esophageal stricture: Code(s): K22.2 - Esophageal obstruction Plan: Barium swallow done a couple of years ago showed (+) stricture/narrowing at the distal esophageal area Continue Pantoprazole 40 mg QD Follow up with GI as scheduled (9) Memory impairment: Code(s): R41.3 - Other amnesia Plan: Suspect MCI vs early dementia Continue Donepezil 10 mg Q HS Continue Doxepin 10 mg Q HS PRN to help with his anxiety at night but unclear at this point if he is even taking any of these meds He was previously referred to neurology for further evaluation and management (10) Lichen simplex chronicus: Code(s): L28.0 - Lichen simplex chronicus Plan: Continue augmented topical Betamethasone cream 0.05% BID Follow up with dermatology as scheduled (11) Dyschromia: Code(s): L81.9 - Disorder of pigmentation, unspecified Plan: Was seen by dermatology a couple of years ago and 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), which is a benign issue but has no effective treatment options Continue Lotrisone cream BID PRN mostly for symptomatic relief (12) Alcoholism: Code(s): F10.20 - Alcohol dependence, uncomplicated Plan: This is an unfortunate situation as his now reveals that patient has been drinking for a while now (years) but he was good at concealing this from everyone until recently States that he was drinking when he had his cardiac event last year and feels that this has only gotten worse as he is now drinking constantly and has refused to take any or most of his medications for a few weeks now Patient denies feeling depressed when I questioned him about this Have advised that if he needs help to quit, there are plenty of resources that can help him but he has to decide that he wants to quit first Advised that he can call at any time if he has decided to quit (13) Overweight (BMI 25.0-29.9): Code(s): E66.3 - Overweight Plan: Reinforced diet; exercise and weight are somewhat limited due to his current comorbidities but patient is encouraged to stay active as much as he can He has gained about 16 pounds since his last visit as his states that he does nothing but sits and drinks alcohol all day long Plan Follow up in 4 months Orders: Orders Comprehensive [place]. Panel Fast 4 Months E78.00 - Pure hypercholesterolemia, unspecified Lipid Panel 4 Months E78.00 - Pure hypercholesterolemia, unspecified UA CC w/rflx Micro + Cult 4 Months R30.0 - Dysuria Vitamin D 25-OH Total 4 Months E55.9 - Vitamin D deficiency, unspecified B Type Natriuretic Peptide 4 Months I50.9 - Heart failure, unspecified Complete Blood Count Auto Diff 4 Months D64.9 - Anemia, unspecified Microalbumin, Random (w Creat) 4 Months E11.9 - Type 2 diabetes mellitus without complications TSH reflex Free T4 4 Months E78.00 - Pure hypercholesterolemia, unspecified Hemoglobin A1c 4 Months E11.9 - Type 2 diabetes mellitus without complications Uric Acid 4 Months M10.9 - Gout, unspecified Coding Level of Care Code Est Pt Level 4 (79121) Diagnoses Coronary artery disease involving [place] coronary artery of [place] heart without angina pectoris I25.10 Coronary Disease-Associated Artery/Lesion type: [place] artery [place] vs. transplanted heart: [place] heart Associated angina: without angina NSTEMI (non-ST elevated myocardial infarction) I21.4 Pure hypercholesterolemia E78.00 Type 2 diabetes mellitus without complication, without long-term current use of insulin E11.9 Diabetes mellitus type: type 2 Diabetes mellitus extermination supervisor insulin use: without fpc use Diabetes mellitus complication status: without complication Benign essential hypertension I10 Idiopathic gout, unspecified chronicity, unspecified site M10.00 Gout site: unspecified site Gout etiology: idiopathic Chronicity: unspecified Stage 3b chronic kidney disease N18.32 Chronic kidney disease stage 3 subtype: stage 3b (GFR 30-44) Esophageal stricture K22.2 Memory impairment R41.3 Lichen simplex chronicus L28.0 Dyschromia L81.9 Alcoholism F10.20 Overweight (BMI 25.0-29.9) E66.3
== END 2023-04-09 10:04 | disposition home or self-care (01) ==
PROVIDERS: PCP Internal Medicine; Visit Provider Internal Medicine
DX: E11.22 Type 2 diabetes mellitus with diabetic chronic kidney disease (principal); N18.32 Chronic kidney disease, stage 3b; F10.20 Alcohol dependence, uncomplicated; I25.2 Old myocardial infarction; I25.10 Atherosclerotic heart disease of native coronary artery without angina pectoris; E78.00 Pure hypercholesterolemia, unspecified; I10 Essential (primary) hypertension; M10.00 Idiopathic gout, unspecified site; K22.2 Esophageal obstruction; R41.3 Other amnesia; L28.0 Lichen simplex chronicus; L81.9 Disorder of pigmentation, unspecified
CPT/HCPCS: 99214

== ENCOUNTER 2023-06-24 10:55 | Outpatient (AMB) | payer OTHER, MEDICARE, SELFPAY ==
[2022-07-08 10:22] VITALS: BP 110/68; BP 112/76; BP 130/70; BMI 26.0
--- NOTE | 2023-06-24 11:34 | A.OFFVIS_ITS ---
Vital Signs 06/24/23 11:37 Height 5 ft 4 in Weight 167 lb BMI 28.7 BP 158/80 H Blood Pressure Location Lt brachial Position Sitting Pulse 89 Pulse Source Pulse Oximeter Pulse Oximetry (%) 96 Oxygen Delivery Method Room Air Intake Visit Reasons: f/up-echo Intake Note: PT IS FEELING GOOD NO CHEST PAIN FOLLOW UP AFTER ECHO Allergies ramipril Allergy (Severe, Verified 04/09/23 09:43) angioedema rosuvastatin Adverse Reaction (Intermediate, Verified 04/09/23 09:43) recurrent choking sensation in throat when taking med Medication List - Last Reconciled 06/24/23 by Lakhwinder Booker MD aspirin 81 mg PO DAILY atorvastatin 80 mg PO DAILY 90 days betamethasone dipropionate 0.05% 1 appl topical BID PRN blood sugar diagnostic (FreeStyle Lite Strips) As directed 3 times per day carvedilol 3.125 mg PO BID 90 days clopidogrel 75 mg PO DAILY 90 days colchicine (Colcrys) 0.6 mg PO DAILY 90 days diclofenac sodium 1% (Voltaren Arthritis Pain) 2 grams topical QID donepezil 10 mg PO BEDTIME 90 days doxepin 10 mg PO BEDTIME garlic 100 mg PO DAILY lancets (FreeStyle Lancets) As directed 3 times per day metformin ER 500 mg PO BID 90 days multivitamin 1 tab PO DAILY omega-3 fatty acids 1,000 mg PO DAILY pantoprazole 40 mg PO DAILY 90 days pen needle, diabetic (Comfort EZ Pen [place]) As directed HPI Comments Details: 73-year-old gentleman here for follow-up. He was previously being monitored for hypertension and stable coronary disease. It appears he got admitted to [facility] with NSTEMI and was taken for cardiac catheterization which revealed multivessel disease. He had [id number]-hq-[id number] LV as well as RV dysfunction and was taken for coronary artery bypass surgery. He was on pressors afterwards but recovered fortunately. He has been doing well since then. He underwent cardiac rehabilitation and has completed that at this stage. Post bypass he had echocardiography performed which showed [id number] LV dysfunction with EF of 35-40% with inferior wall akinesis. He also has severely decreased right ventricular function. 08/27/22: He returns for follow-up. He is saying he has completed cardiac rehabilitation at this point and is walking on his own without any chest d iscomfort shortness of breath. He has hoarseness of his voice and he is saying this has been present since the bypass surgery. He has not had any breathing issues or stridor. He is taking multiple medications currently. His blood pressure control is good. His family accompanied him and they had question about 1 of his medication but did not know which medication it is. Overall he is feeling better. I have advised him that he should be exercising regularly. 06/24/23: He returns for follow-up. He is denying any symptoms on follow-up. His blood pressure is elevated. Manual blood pressure is 150/100. Previously was taking carvedilol 6.25 mg and hydrochlorothiazide 25 mg daily. He has currently not on hydrochlorothiazide anymore. Previously had angioedema with ramipril so NIKHIL inhibitor/ARB can not be used. He has flax-rw-hldlnpte RV dysfunction on repeat echocardiography but his LV ejection fraction is normal 55-60% with basal inferior akinesis. The pointed out that Therese has been drinking more alcohol. He is saying that he drinks vodka shots occasionally and does not drink heavily. [facility] Medical History (Updated 04/09/23 @ 10:23 by Raul Robles MD) Chronic kidney disease, stage III (moderate) Alcoholism Lichen simplex chronicus Coronary artery disease involving bypass graft of transplanted heart Diabetes mellitus Overweight (BMI 25.0-29.9) Dyschromia Esophageal stricture Coronary artery disease Gout Pure hypercholesterolemia Benign essential hypertension Surgical History S/P CABG x 4 (~04/10/22) History of percutaneous coronary intervention (~2008) History of coronary angioplasty (~1998) History of colonoscopy Varicose vein of leg Family History Father Medical history unknown Mother Diabetes Hypertension Social History Housing: House Alcohol intake: current Alcohol intake frequency: holidays/special occasions only Patient Tobacco Use Status: Former Tobacco user Quit Date: 1992 Years Smoked: 25 +/- e-Cigarette/Vaping Use: Never Used Second Hand Smoke Exposure: No service: No Current occupational status: retired Cognitive needs: No Hearing needs: No Vision needs: No Review of Systems Const Denies weakness ENT Denies dizziness Card Denies chest pain, Denies chest pain with activity, Denies syncope, Denies rapid heart rate, Denies pedal edema, Denies edema, Denies leg edema, Denies lightheadedness, Denies palpitations, Denies dyspnea, Denies dyspnea on exertion and Denies orthopnea Resp Denies cough, Denies dyspnea and Denies dyspnea on exertion GI Denies hematochezia and Denies change in stool character Musc Denies abnormal gait, Denies muscle cramps, Denies muscle weakness, Denies numbness, Denies radiating pain into limb and Denies tingling Neuro Denies abnormal gait, Denies dizziness, Denies syncope, Denies numbness, Denies tingling and Denies weakness Endo Denies palpitations Physical Exam Vital Signs: Last Vital Signs Pulse 89 06/24/23 11:37 BP 158/80 H 06/24/23 11:37 Pulse Ox 96 06/24/23 11:37 Oxygen Delivery Method Room Air 06/24/23 11:37 BMI result Body Mass Index 28.7 GENERAL APPEARANCE: in no acute distress, pleasant. NECK: no carotid bruit, no jugular venous distention. SKIN: Midline sternotomy scar. HEART: no murmurs, regular rate and rhythm. LUNGS: clear to auscultation bilaterally. ABDOMEN: soft, nontender. EXTREMITIES: no edema. PERIPHERAL PULSES: equal. NEUROLOGIC: No gross deficits, AAO X 3 Assessment & Plan Assessment & Plan (1) Right ventricular dysfunction: Code(s): I51.9 - Heart disease, unspecified Category: Medical (2) S/P CABG (coronary artery bypass graft): Code(s): Z95.1 - Presence of aortocoronary bypass graft Category: Surgical (3) Stable angina: Code(s): I20.8 - Other forms of angina pectoris Category: Medical (4) Benign essential hypertension: Code(s): I10 - Essential (primary) hypertension Category: Medical Plan Very pleasant 73-year-old gentleman who is here for follow-up. He is status post bypass surgery at this point. His RV function appeared to be reduced post bypass surgery which is a common situation. Repeat ECHO is showing [id number] RV dysfunction with normal right ventricular cavity size. He did have ischemic cardiomyopathy before he went for bypass surgery but post bypass his EF has improved back to 55-60%. He is doing well overall. I have cautioned him about alcohol intake. His blood pressure is elevated which could be due to alcohol use. He understands this. I am adding hydrochlorothiazide 25 mg daily back on his regimen. If this does not work then we will add calcium channel cristobal. He will have repeat blood pressure check with us in 2 weeks. He will otherwise see me back in 3 months. Thank you for allowing me to participate in the care of your patient. Please feel free to contact me if you have any questions. Medications: New hydrochlorothiazide 25 mg PO DAILY 60 tabs 3RF I10 - Essential (primary) hypertension Coding Level of Care Code Est Pt Level 4 (74079) Diagnoses Right ventricular dysfunction I51.9 S/P CABG (coronary artery bypass graft) Z95.1 Stable angina I20.8 Benign essential hypertension I10
[2023-06-24 11:37] VITALS: BP 158/80; PULSE 89; O2SAT 96; BMI 28.7
== END 2023-06-24 12:04 | disposition home or self-care (01) ==
PROVIDERS: PCP Internal Medicine; Visit Provider Internal Medicine Cardiovascular Disease
DX: I51.9 Heart disease, unspecified (principal); Z95.1 Presence of aortocoronary bypass graft; I20.89 Other forms of angina pectoris; I10 Essential (primary) hypertension
CPT/HCPCS: 99214

== ENCOUNTER → 2023-06-24 10:55 | Outpatient (BNVA) | payer OTHER, MEDICARE, SELFPAY ==
[2022-07-08 10:22] VITALS: BP 110/68; BP 112/76; BP 130/70; BMI 26.0
== END ==
PROVIDERS: PCP Internal Medicine; Visit Provider Internal Medicine Cardiovascular Disease

== ENCOUNTER → 2023-07-08 10:14 | Outpatient (BNVA) | payer OTHER, MEDICARE, SELFPAY ==
[2023-06-24 11:59] VITALS: BP 110/68; BP 112/76; BP 130/70; BMI 26.0
== END ==
PROVIDERS: PCP Internal Medicine; Visit Provider Internal Medicine Cardiovascular Disease

== ENCOUNTER → 2023-07-30 10:04 | Outpatient (BNVA) | payer OTHER, MEDICARE, SELFPAY ==
[2023-06-24 11:59] VITALS: BP 110/68; BP 112/76; BP 130/70; BMI 26.0
== END ==
PROVIDERS: PCP Internal Medicine; Visit Provider Internal Medicine Cardiovascular Disease

== ENCOUNTER 2023-08-01 09:05 | Outpatient (REF) | payer MEDICARE, SELFPAY ==
[2023-06-24 11:59] VITALS: BP 110/68; BP 112/76; BP 130/70; BMI 26.0
[2023-08-01 09:24] LABS: MANUAL DIFF FLAG NO
[2023-08-01 09:35] LABS: Basophils Percent Auto 0.4 % (0-2); Eosinophils Absolute Auto 0.7 X10*3/uL (0.0-0.4); Hematocrit 40.4 % (42.0-52.0); Hemoglobin 13.2 g/dl (14.0-18.0); Imm Gran Abs Auto 0.06 X10*3/uL (0.00-0.03); Imm Gran Pct Auto 0.8 % (0.0-0.4); Lymphocytes Absolute Auto 1.4 X10*3/uL (1.2-4.9); Lymphocytes Percent Auto 19.6 % (20-40); Mean Corpuscular HGB Conc 32.7 g/dl (31.0-36.0); Mean Corpuscular Hemoglobin 26.7 pg (27.0-33.0); Mean Corpuscular Volume 81.6 fL (80.0-98.0); Mean Platelet Volume 10.5 fL (9.4-12.4); Monocytes Absolute Auto 0.6 X10*3/uL (0.1-1.2); Monocytes Percent Auto 8.5 % (2-11); Neutrophils Absolute Auto 4.4 x10*3/uL (2.0-8.3); Neutrophils Percent Auto 61.7 % (45-73); Platelet Count 225 X10*3/uL (160-400); Red Blood Count 4.95 X10*6/uL (4.60-5.80); White Blood Count 7.2 X10*3/uL (4.8-10.8)
[2023-08-01 09:47] LABS: Appearance Urine Clear; Color Urine Yellow; Glucose Urine UA Negative (Negative); Leukocyte Esterase Urine Negative (Negative); Nitrite Urine Negative (Negative); PH 5.5 (5.0-9.0); Urine Blood Negative (Negative); Urine Ketones Trace mg/dL (Negative); Urine Protein Trace mg/dL (Neg-Trace)
[2023-08-01 10:01] LABS: Estimated Average Glucose 151 mg/dL; Hemoglobin A1c % 6.9 % (<6.0)
[2023-08-01 10:09] LABS: B Type Natriuretic Peptide 142 pg/mL (<100)
[2023-08-01 10:14] LABS: Alanine Aminotransferase 14 U/L (0-40); Alkaline Phosphatase 81 U/L (39-117); Anion Gap 12 (12-20); Aspartate Amino Transferase 13 U/L (5-37); Bilirubin Total 0.5 mg/dL (0.0-1.0); Blood Urea Nitrogen 24 mg/dL (9-16); Calcium 9.1 mg/dL (8.4-10.2); Carbon Dioxide 30 mmol/L (22-29); Chloride 104 mmol/L (96-108); Cholesterol 185 mg/dL (<200); Estimated Glomerular Filt Rate 39; Glucose Fasting 149 mg/dL (60-99); HDL Cholesterol 35 mg/dL (>40); LDL Cholesterol Calculated 120 mg/dL (<100); Potassium 3.9 mmol/L (3.3-5.1); Sodium 142 mmol/L (135-145); Total Protein 6.9 g/dL (6.5-8.0); Triglycerides 152 mg/dL (<150)
[2023-08-01 10:15] LABS: Creatinine Urine 213.39 mg/dL; Microalbum/Creatinine Ratio Ur 14.5 ug/mg cr (<30)
[2023-08-01 10:25] LABS: Uric Acid 7.8 mg/dL (3.4-7.0)
[2023-08-01 10:33] LABS: TSH reflex Free T4 0.93 uIU/mL (0.32-4.0); Vitamin D 25-OH Total 35.6 ng/mL (>30)
== END 2023-08-01 09:06 | disposition home or self-care (01) ==
LOC: HO.LAB 09:05
PROVIDERS: PCP Internal Medicine; Visit Provider Internal Medicine
DX: E55.9 Vitamin D deficiency, unspecified (principal); M10.9 Gout, unspecified; R30.0 Dysuria; E78.00 Pure hypercholesterolemia, unspecified; I50.9 Heart failure, unspecified; E11.9 Type 2 diabetes mellitus without complications; D64.9 Anemia, unspecified
CPT/HCPCS: 36415; 80053; 80061; 81003; 82043; 82306; 82570; 83036; 83880; 84443; 84550; 85025

== ENCOUNTER 2023-08-13 09:36 | Outpatient (AMB) | payer OTHER, MEDICARE, SELFPAY ==
[2022-07-08 10:22] VITALS: BP 110/68; BP 112/76; BP 130/70; BMI 26.0
[2023-06-24 11:59] VITALS: BP 110/68; BP 112/76; BP 130/70; BMI 26.0
[2023-08-13 09:39] VITALS: BP 116/78; PULSE 81; O2SAT 98; BMI 28.7
--- NOTE | 2023-08-13 09:39 | MHC.PC.OV ---
Vital Signs 08/13/23 09:39 Height 5 ft 4 in Weight 167 lb 0.6 oz BMI 28.7 BP 116/78 Blood Pressure Location Lt brachial Position Sitting Pulse 81 Pulse Source Pulse Oximeter Pulse Oximetry (%) 98 Oxygen Delivery Method Room Air Intake Visit Reasons: DM, cardiomyopathy, hyperlipidemia, CKD Intake Note: Patient is here to follow up Sld Inclusion Teacher Required: No Allergies ramipril Allergy (Severe, Verified 08/13/23 10:56) angioedema rosuvastatin Adverse Reaction (Intermediate, Verified 08/13/23 10:56) recurrent choking sensation in throat when taking med Medication List - Last Reconciled 08/13/23 by Raul Robles MD allopurinol 100 mg PO DAILY amlodipine 10 mg PO DAILY aspirin 81 mg PO DAILY atorvastatin 80 mg PO DAILY 90 days betamethasone dipropionate 0.05% 1 appl topical BID PRN blood sugar diagnostic (FreeStyle Lite Strips) As directed 3 times per day carvedilol 3.125 mg PO BID 90 days clopidogrel 75 mg PO DAILY 90 days colchicine 0.6 mg PO DAILY diclofenac sodium 1% (Voltaren Arthritis Pain) 2 grams topical QID garlic 100 mg PO DAILY hydrochlorothiazide 25 mg PO DAILY lancets (FreeStyle Lancets) As directed 3 times per day metformin ER 500 mg PO BID 90 days multivitamin 1 tab PO DAILY pantoprazole 40 mg PO DAILY pen needle, diabetic (Comfort EZ Pen [place]) As directed Tobacco use date assessed: 08/13/23 Fall risk assessment: No Falls in past year Last assessed Fall Risk: 08/13/23 Dental Screening Dental Screen Date: 04/09/23 HPI DM, cardiomyopathy, hyperlipidemia, CKD HPI Details Patient comes in today for his follow up visit States that he feels okay Still gets tired easily but states that this has not changed significantly over the past year or so He was seen by cardiology for follow up last month and was started additionally on HCTZ 25 mg QD He denies any headaches or dizziness Denies any chest pains, no SOB No nausea/vomiting, no abdominal pain No change in bowel habits noted He had his follow up labs done a couple of weeks ago - to discuss his results [facility] Medical History Chronic kidney disease, stage III (moderate) Alcoholism Lichen simplex chronicus Coronary artery disease involving bypass graft of transplanted heart Diabetes mellitus Overweight (BMI 25.0-29.9) Dyschromia Esophageal stricture Coronary artery disease Gout Pure hypercholesterolemia Benign essential hypertension Surgical History S/P CABG x 4 (~04/10/22) History of percutaneous coronary intervention (~2008) History of coronary angioplasty (~1998) History of colonoscopy Varicose vein of leg Family History Father Medical history unknown Mother Diabetes Hypertension Social History Housing: House Alcohol intake: current Alcohol intake frequency: holidays/special occasions only Patient Tobacco Use Status: Former Tobacco user Years Smoked: 25 +/- e-Cigarette/Vaping Use: Never Used Second Hand Smoke Exposure: No service: No Current occupational status: retired Cognitive needs: No Hearing needs: No Vision needs: No Questionnaire PHQ-9 Over the last 2 weeks, how often have you been bothered by any of the following problems? 1. Little interest or pleasure in doing things: nearly every day 2. Feeling down, depressed, or hopeless: nearly every day 3. Trouble falling or staying asleep, or sleeping too much: nearly every day 4. Feeling tired or having little energy: nearly every day 5. Poor appetite or overeating: nearly every day 6. Feeling bad about yourself - or that you are a failure or have let yourself or your family down: nearly every day 7. Trouble concentrating on things, such as reading the newspaper or watching television: not at all 8. Moving or speaking so slowly that other people could have noticed. Or the opposite - being so fidgety or restless that you have been moving around a lot more than usual: not at all 9. Thoughts that you would be better off or of hurting yourself in some way: not at all Total score: 18 Depression Screening Interpretation: Positive Depression Screening Follow-up: Existing condition and In treatment Depression Screening Done: Yes 64756 - PHQ-9 Billing: Yes Source: Developed by Drs. Johnny Cuellar, Lilly Belle, Marcus Chambers and colleagues, with an educational lillie from [employer]. Thrive Questionnaire Date Thrive assessed: 08/13/23 I am a: Patient What is your living situation today?: I have a steady place to live Within the past 12 months, did the food you bought not last and you didn't have the money to get more?: Never true Within the past 12 months, did you worry whether your food would run out before you got money to buy more?: Never true Do you have trouble paying for medicines?: No Do you have trouble getting transportation to medical appointments?: No Do you have trouble paying your heating and electricity bill?: No Do you have trouble taking care of your child, family member or friend?: No Do you have trouble with day-to-day activities such as bathing, preparing meals, shopping, managing finances, etc.?: No Are you currently unemployed and looking for a job?: No Are you interested in more education?: No Please select the resources that you would like help with: None Currently or been in a relationship where the following occur: no concerns reported THRIVE Score: 0 AUDIT C Alcohol Use Questionnaire (AUDIT-C) 1. How often do you have a drink containing alcohol?: Never 3. How often do you have six or more drinks on one occasion?: Never Total Score: 0 Score Reviewed/Action Taken: Yes KAITLYN-7 AMB Questionnaire KAITLYN-7 Date KAITLYN - 7 assessed: 04/09/23 Feeling nervous, anxious, or on edge: 3 = Nearly every day Not being able to stop or control worryin = Nearly every day Worrying too much about different things: 3 = Nearly every day Trouble relaxin = Nearly every day Being so restless that it is hard to sit still: 3 = Nearly every day Becoming easily annoyed or irritable: 3 = Nearly every day Feeling afraid as if something awful might happen: 0 = Not at all Total KAITLYN-7 score (0-4 normal; 5-9 mild; 10-14 moderate; 15-21 severe): 18 Source: Developed by Drs. Johnny Cuellar, Lilly Belle, Marcus Chambers and colleagues, with an educational lillie from [employer]. Review of Systems Const Denies chills, Reports fatigue, Denies fever(s) and Denies headache(s) ENT Denies dysphagia, Denies dizziness, Denies otalgia, Denies headache(s), Denies neck pain, Denies odynophagia and Denies sore throat Card Denies chest pain, Denies rapid heart rate, Denies palpitations and Denies dyspnea Resp Denies chest congestion, Denies cough and Denies dyspnea GI Denies abdominal pain, Denies constipation, Denies dysphagia, Denies heartburn, Denies diarrhea, Denies nausea, Denies odynophagia and Denies vomiting Denies dysuria, Denies nocturia and Denies urinary frequency Musc Denies joint swelling and Denies neck pain Neuro Denies dizziness and Denies headache(s) Endo Reports fatigue and Denies palpitations Physical exam (Primary Care) Vital Signs: Last Vital Signs Pulse 81 08/13/23 09:39 BP 116/78 08/13/23 09:39 Pulse Ox 98 08/13/23 09:39 Oxygen Delivery Method Room Air 08/13/23 09:39 BMI result Body Mass Index 28.7 Tobacco/Smoking Status: Tobacco use Status Tobacco use date assessed 08/13/23 08/13/23 09:40 Patient Tobacco Use Status Former Tobacco user 08/13/23 09:40 Tobacco use type 06/24/23 11:59 e-Cigarette/Vaping Use Never Used 08/13/23 09:40 PHQ-9: PHQ-9 Score PHQ-9: Total score 18 08/13/23 10:13 Depression Screening Interpretation: Positive Depression Screening Follow-up: Existing condition and In treatment Thrive Assessment: Date of Thrive Assessment Date Thrive assessed 04/09/23 08/13/23 09:40 Currently or been in a relationship where the following occur: no concerns reported Const General: no acute distress and alert HENMT Ears: TM's normal bilaterally and EAC's normal Throat: Yes posterior oropharynx normal and Yes tonsils normal (no TP congestion noted) Neck Neck: Yes no lymphadenopathy and Yes supple Thyroid: Thyroid normal Resp Auscultation: clear to auscultation bilaterally, no rales and no wheezes Cardio Rate: regular rate Rhythm: regular rhythm Heart sounds: no murmurs GI Palpation (GI): Soft to palpation and nontender Auscultation: normal bowel sounds General: Yes no CVA tenderness Back/Spine/Pelvis Back: no CVA tenderness Extrem General: Yes no clubbing, cyanosis or edema Results Reviewed Results Reviewed: Laboratory Tests 08/01/23 08/01/23 09:18 09:21 WBC 7.2 Hgb 13.2 L Hct 40.4 L Plt Count 225 Sodium 142 Potassium 3.9 Creatinine 1.75 H Estimated GFR 39 Fasting Glucose 149 H Hemoglobin A1c % 6.9 H Uric Acid 7.8 H Calcium 9.1 AST 13 ALT 14 B-Natriuretic Peptide 142 H Triglycerides 152 H Cholesterol 185 LDL Cholesterol, Calc 120 H HDL Cholesterol 35 L 25-OH Vitamin D Total 35.6 TSH 0.93 Ur Specific Dillon 1.020 Urine Protein Trace Urine Glucose (UA) Negative Urine Blood Negative Urine Nitrite Negative Ur Leukocyte Esterase Negative Microalb/Creat Ratio 14.5 Assessment and Plan Assessment & Plan (1) Coronary artery disease: Comment: S/P multiple interventions - 1998, 2008 and 2022 (see surgical Hx) Code(s): I25.10 - Atherosclerotic heart disease of torres martinez coronary artery without angina pectoris Qualifiers: Coronary Disease-Associated Artery/Lesion type: torres martinez artery [place] vs. transplanted heart: torres martinez heart Associated angina: without angina Qualified Code(s): I25.10 - Atherosclerotic heart disease of torres martinez coronary artery without angina pectoris Plan: S/P multiple cardiac interventions over the years, most recently CABG x 4 (RASCON to LAD, SVG to PDA, SVG to distal circumflex and SVG to OM) on 04/10/[address] Yuly Washington at [facility] Continue low dose Aspirin 81 mg QD and Clopidogrel 75 mg QD; continue Carvedilol 3.125 mg BID (dose lowered in September 2022 due to TONI) Follow up with cardiology (Dr. Booker) as scheduled (2) NSTEMI (non-ST elevated myocardial infarction): Code(s): I21.4 - Non-ST elevation (NSTEMI) myocardial infarction Plan: Patient was found to have NSTEMI on work ups when he presented to the ER at [facility] on 04/02/2022 with chest discomfort Coronary angiogram revealed multivessel (4-vessel) disease with 80% stenosis of the proximal LAD, 95% stenosis of the left circumflex and 70% stenosis of the mid RCA He eventually underwent coronary intervention with CABG x 4 Continue aggressive risk factor reduction, including BP, cholesterol and DM He is again presently asymptomatic from cardiac standpoint Follow up with cardiology as scheduled (3) Pure hypercholesterolemia: Code(s): E78.00 - Pure hypercholesterolemia, unspecified Plan: Results of his labs done a couple of weeks ago reviewed and discussed with patient and his His cholesterol numbers have previously increased (LDL cholesterol increased from 64 mg/dl to 93 mg/dl and TC from 120 mg/dl to 171 mg/dl) and appears to have gone up further on his recent labs as his LDL cholesterol is now at 120 mg/dl on his labs done a couple of weeks ago Have emphasized again that with his cardiac issues, his LDL cholesterol goal should be at around 50 to 70 mg/dl He was on Atorvastatin 80 mg QD but his revealed that patient has refused to take all of his meds for a while now and he is just throwing them out everytime she hands him his medications to take Have discussed with patient at his last visit that he should start back on all of his meds or his health will continue to deteriorate - unclear at this time if he has been taking his Atorvastatin regularly or not since I last saw him a few months ago Patient continues to deny feeling depressed at this time and declines offet again to refer him for counseling or start him on some Rx for his mood Will recheck his labs and fasting lipids in 4 months for follow up (4) Diabetes mellitus: Code(s): E11.9 - Type 2 diabetes mellitus without complications Qualifiers: Diabetes mellitus type: type 2 Diabetes mellitus snf insulin use: without long term acute care registered nurse use Diabetes mellitus complication status: without complication Qualified Code(s): E11.9 - Type 2 diabetes mellitus without complications Plan: His HgbA1c remains unchanged from previous at 6.9% on his labs done a couple of weeks ago He was at 5.3% late last year - goal is at least < 7.0% Reinforced low calorie diet/exercise as tolerated He should be on Metformin ER 500 mg BID but he has also been refusing to take this for a while now, per his - have urged patient to reconsider starting back on his meds His Lantus 10 units QD was discontinued during his recent hospitalization a couple of months ago (5) Benign essential hypertension: Code(s): I10 - Essential (primary) hypertension Plan: Reinforced low sodium diet - goal is systolic BP of 120 mm or less in light of his recent NSTEMI and CABG Continue Carvedilol 3.125 mg BID His Amlodipine 10 mg, HCTZ 25 mg, Spironolactone 25 mg and Furosemide 20 mg were all discontinued back in September 2022 when he was admitted for TONI and hyperkalemia but he was started back on HCTZ 25 mg QD by cardiology last month His BP appears better controlled again currently (6) Gout: Code(s): M10.9 - Gout, unspecified Qualifiers: Gout site: unspecified site Gout etiology: idiopathic Chronicity: unspecified Qualified Code(s): M10.00 - Idiopathic gout, unspecified site Plan: Patient's serum uric acid level has also decreased slightly from 8.9 a few months ago to 7.8 on his labs done a couple of weeks ago Reinforced low purine diet - states that he's had no acute flare ups of gout lately He should be on Colchicine 0.6 mg QD but is also likely not taking this lately (7) Chronic kidney disease, stage III (moderate): Code(s): N18.30 - Chronic kidney disease, stage 3 unspecified Qualifiers: Chronic kidney disease stage 3 subtype: stage 3b (GFR 30-44) Qualified Code(s): N18.32 - Chronic kidney disease, stage 3b Plan: He is advised that his renal function appears to have stabilized again currently, based on his recent labs Will continue to monitor his renal function closely (8) Esophageal stricture: Code(s): K22.2 - Esophageal obstruction Plan: Barium swallow done a couple of years ago showed (+) stricture/narrowing at the distal esophageal area Continue Pantoprazole 40 mg QD Follow up with GI as scheduled (9) Memory impairment: Code(s): R41.3 - Other amnesia Plan: Suspect MCI vs early dementia Continue Donepezil 10 mg Q HS Continue Doxepin 10 mg Q HS PRN to help with his anxiety at night but unclear at this point if he is even taking any of these meds He was previously referred to neurology for further evaluation and management (10) Lichen simplex chronicus: Code(s): L28.0 - Lichen simplex chronicus Plan: Continue augmented topical Betamethasone cream 0.05% BID Follow up with dermatology as scheduled (11) Dyschromia: Code(s): L81.9 - Disorder of pigmentation, unspecified Plan: He was seen by dermatology a couple of years ago and 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), which is a benign issue but has no effective treatment options Continue Lotrisone cream BID PRN mostly for symptomatic relief (12) Alcoholism: Code(s): F10.20 - Alcohol dependence, uncomplicated Plan: His now states that patient has been drinking for a while now (years) but he was good at concealing this from everyone until recently States that he was drinking when he had his cardiac event last year and feels that this has only gotten worse as he is now drinking constantly and has refused to take any or most of his medications for several weeks but this has slowly gotten better over the past few months Patient denies feeling depressed when questioned about this Have advised that if he needs help to quit, there are plenty of resources that can help him but he has to decide that he wants to quit first - advised that he can call for help at any time (13) Overweight (BMI 25.0-29.9): Code(s): E66.3 - Overweight Plan: Reinforced diet; exercise and weight are somewhat limited due to his current comorbidities but patient is encouraged to stay active as much as he can Plan Follow up in 4 months Orders: Orders Complete Blood Count Auto Diff 4 Months D64.9 - Anemia, unspecified Hemoglobin A1c 4 Months E11.9 - Type 2 diabetes mellitus without complications UA CC w/rflx Micro + Cult 4 Months R30.0 - Dysuria Uric Acid 4 Months M10.9 - Gout, unspecified Vitamin D 25-OH Total 4 Months E55.9 - Vitamin D deficiency, unspecified Comprehensive [place]. Panel Fast 4 Months E78.00 - Pure hypercholesterolemia, unspecified Lipid Panel 4 Months E78.00 - Pure hypercholesterolemia, unspecified Microalbumin, Random (w Creat) 4 Months E11.9 - Type 2 diabetes mellitus without complications TSH reflex Free T4 4 Months E78.00 - Pure hypercholesterolemia, unspecified Vitamin B12 and Folate 4 Months E53.8 - Deficiency of other specified B group vitamins Coding Level of Care Code Est Pt Level 4 (87208) Complex EM visit Add On G2211 Diagnoses Coronary artery disease involving torres martinez coronary artery of torres martinez heart without angina pectoris I25.10 Coronary Disease-Associated Artery/Lesion type: torres martinez artery [place] vs. transplanted heart: torres martinez heart Associated angina: without angina NSTEMI (non-ST elevated myocardial infarction) I21.4 Pure hypercholesterolemia E78.00 Type 2 diabetes mellitus without complication, without long-term current use of insulin E11.9 Diabetes mellitus type: type 2 Diabetes mellitus long term acute care registered nurse insulin use: without snf use Diabetes mellitus complication status: without complication Benign essential hypertension I10 Idiopathic gout, unspecified chronicity, unspecified site M10.00 Gout site: unspecified site Gout etiology: idiopathic Chronicity: unspecified Stage 3b chronic kidney disease N18.32 Chronic kidney disease stage 3 subtype: stage 3b (GFR 30-44) Esophageal stricture K22.2 Memory impairment R41.3 Lichen simplex chronicus L28.0 Dyschromia L81.9 Alcoholism F10.20 Overweight (BMI 25.0-29.9) E66.3
== END 2023-08-13 10:57 | disposition home or self-care (01) ==
PROVIDERS: PCP Internal Medicine; Visit Provider Internal Medicine
DX: I12.9 Hypertensive chronic kidney disease with stage 1 through stage 4 chronic kidney disease, or unspecified chronic kidney disease (principal); E11.22 Type 2 diabetes mellitus with diabetic chronic kidney disease; N18.32 Chronic kidney disease, stage 3b; F10.20 Alcohol dependence, uncomplicated; I25.10 Atherosclerotic heart disease of native coronary artery without angina pectoris; I25.2 Old myocardial infarction; E78.00 Pure hypercholesterolemia, unspecified; M10.00 Idiopathic gout, unspecified site; K22.2 Esophageal obstruction; R41.3 Other amnesia; L28.0 Lichen simplex chronicus; L81.9 Disorder of pigmentation, unspecified
CPT/HCPCS: 99214; G2211

== ENCOUNTER 2023-09-30 09:52 | Outpatient (AMB) | payer OTHER, MEDICARE, SELFPAY ==
[2022-07-08 10:22] VITALS: BP 110/68; BP 112/76; BP 130/70; BMI 26.0
[2023-06-24 11:59] VITALS: BP 110/68; BP 112/76; BP 130/70; BMI 26.0
[2023-09-30 10:04] VITALS: BP 110/70; PULSE 68; BMI 29.7
--- NOTE | 2023-09-30 10:04 | MHC.OFFVIS ---
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 Accompanied by: Self / Same As Patient Allergies ramipril Allergy (Severe, Verified 08/13/23 10:56) angioedema rosuvastatin Adverse Reaction (Intermediate, Verified 08/13/23 10:56) recurrent choking sensation in throat when taking med Medication List - Last Reconciled 09/30/23 by Lakhwinder Booker MD allopurinol 100 mg PO DAILY amlodipine 10 mg PO DAILY aspirin 81 mg PO DAILY atorvastatin 80 mg PO DAILY 90 days betamethasone dipropionate 0.05% 1 appl topical BID PRN blood sugar diagnostic (FreeStyle Lite Strips) As directed 3 times per day carvedilol 3.125 mg PO BID 90 days clopidogrel 75 mg PO DAILY 90 days colchicine 0.6 mg PO DAILY diclofenac sodium 1% (Voltaren Arthritis Pain) 2 grams topical QID garlic 100 mg PO DAILY hydrochlorothiazide 25 mg PO DAILY lancets (FreeStyle Lancets) As directed 3 times per day metformin ER 500 mg PO BID 90 days multivitamin 1 tab PO DAILY pantoprazole 40 mg PO DAILY pen needle, diabetic (Comfort EZ Pen [place]) As directed HPI Comments Details: 73-year-old gentleman here for follow-up. He was previously being monitored for hypertension and stable coronary disease. It appears he got admitted to [facility] with NSTEMI and was taken for cardiac catheterization which revealed multivessel disease. He had uanv-rr-dkrjhewp LV as well as RV dysfunction and was taken for coronary artery bypass surgery. He was on pressors afterwards but recovered fortunately. He has been doing well since then. He underwent cardiac rehabilitation and has completed that at this stage. Post bypass he had echocardiography performed which showed mhmo-mf-ztneldua LV dysfunction with EF of 35-40% with inferior wall akinesis. He also has severely decreased right ventricular function. 08/27/22: He returns for follow-up. He is saying he has completed cardiac rehabilitation at this point and is walking on his own without any chest discomfort shortness of breath. He has hoarseness of his voice and he is saying this has been present since the bypass surgery. He has not had any breathing issues or stridor. He is taking multiple medications currently. His blood pressure control is good. His family accompanied him and they had question about 1 of his medication but did not know which medication it is. Overall he is feeling better. I have advised him that he should be exercising regularly. 06/24/23: He returns for follow-up. He is denying any symptoms on follow-up. His blood pressure is elevated. Manual blood pressure is 150/100. Previously was taking carvedilol 6.25 mg and hydrochlorothiazide 25 mg daily. He has currently not on hydrochlorothiazide anymore. Previously had angioedema with ramipril so NIKHIL inhibitor/ARB can not be used. He has newt-tc-ouhnrlcm RV dysfunction on repeat echocardiography but his LV ejection fraction is normal 55-60% with basal inferior akinesis. The pointed out that Therese has been drinking more alcohol. He is saying that he drinks vodka shots occasionally and does not drink heavily. 09/30/2023: He returns for follow-up. Blood pressure is much better on follow-up. Denying any chest discomfort shortness of breath. Does not appear to be very active and only walks inside his house. I have advised him that he should be exercising regularly. It appears during his admission he also had a pacemaker placed which I was not aware off. He has been going to [facility] for device check and monitoring. [facility] Medical History Chronic kidney disease, stage III (moderate) Alcoholism Lichen simplex chronicus Coronary artery disease involving bypass graft of transplanted heart Diabetes mellitus Overweight (BMI 25.0-29.9) Dyschromia Esophageal stricture Coronary artery disease Gout Pure hypercholesterolemia Benign essential hypertension Surgical History S/P CABG x 4 (~04/10/22) History of percutaneous coronary intervention (~2008) History of coronary angioplasty (~1998) History of colonoscopy Varicose vein of leg Family History Father Medical history unknown Mother Diabetes Hypertension Social History Housing: House Alcohol intake: current Alcohol intake frequency: holidays/special occasions only Patient Tobacco Use Status: Former Tobacco user Years Smoked: 25 +/- e-Cigarette/Vaping Use: Never Used Second Hand Smoke Exposure: No service: No Current occupational status: retired Cognitive needs: No Hearing needs: No Vision needs: No Review of Systems Const Denies chills, Denies fatigue, Denies fever(s), Denies frequent falls, Denies weakness, Denies weight gain and Denies weight loss ENT Denies dizziness Card Denies chest pain, Denies leg edema, Denies lightheadedness, Denies palpitations, Denies dyspnea and Denies dyspnea on exertion Resp Denies cough, Denies dyspnea and Denies dyspnea on exertion GI Denies hematochezia Musc Denies abnormal gait, Denies muscle weakness, Denies numbness, Denies radiating pain into limb and Denies tingling Neuro Denies abnormal gait, Denies dizziness, Denies frequent falls, Denies numbness, Denies tingling and Denies weakness Endo Denies fatigue and Denies palpitations Physical Exam Vital Signs: Last Vital Signs Pulse 68 09/30/23 10:04 BP 110/70 09/30/23 10:04 BMI result Body Mass Index 29.7 GENERAL APPEARANCE: in no acute distress, pleasant. NECK: no carotid bruit, no jugular venous distention. SKIN: Midline sternotomy scar. HEART: no murmurs, regular rate and rhythm. LUNGS: clear to auscultation bilaterally. ABDOMEN: soft, nontender. EXTREMITIES: no edema. PERIPHERAL PULSES: equal. NEUROLOGIC: No gross deficits, AAO X 3 Office Procedures EKG Details: Atrial sensed V paced rhythm, QRS duration 122 milliseconds, QTC 495 milliseconds. [id number], Complete Assessment & Plan Assessment & Plan (1) S/P CABG (coronary artery bypass graft): Code(s): Z95.1 - Presence of aortocoronary bypass graft Category: Surgical (2) Ischemic cardiomyopathy: Code(s): I25.5 - Ischemic cardiomyopathy Category: Medical (3) Pacemaker: Code(s): Z95.0 - Presence of cardiac pacemaker Category: Medical Plan Pleasant 73-year-old gentleman who is here for follow-up. He has known history of coronary artery disease and underwent coronary artery bypass surgery in the past. In 04/14/2023 we repeated echocardiography which showed EF of 55-60% with basal inferior akinesis. Normal right ventricular cavity size with thqp-ui-jgfylovyuq decreased right ventricular systolic function. Clinically he has been stable and does not have any significant volume overload. Blood pressure is well controlled currently. He is on dual antiplatelet therapy and has been tolerating it well. It appears he had pacemaker placed after cardiac surgery. This has been managed at [facility] since then and he has been going there once a year. We will take over the device monitoring and care from here onwards. It appears he had a left bundle-branch area pacemaker. He will see us back in 4 months. Thank you for allowing me to participate in the care of your patient. Please feel free to contact me if you have any questions. Coding Level of Care Code Est Pt Level 4 (96779) Diagnoses S/P CABG (coronary artery bypass graft) Z95.1 Ischemic cardiomyopathy I25.5 Pacemaker Z95.0 CPT Codes EKG - CPT: 44343-[id number], Complete ([id number])
== END 2023-09-30 10:31 | disposition home or self-care (01) ==
PROVIDERS: PCP Internal Medicine; Visit Provider Internal Medicine Cardiovascular Disease
DX: Z95.1 Presence of aortocoronary bypass graft (principal); I25.5 Ischemic cardiomyopathy; Z95.0 Presence of cardiac pacemaker
CPT/HCPCS: 93010; 99214

== ENCOUNTER → 2023-09-30 09:52 | Outpatient (BNVA) | payer OTHER, MEDICARE, SELFPAY ==
[2023-06-24 11:59] VITALS: BP 110/68; BP 112/76; BP 130/70; BMI 26.0
== END ==
PROVIDERS: PCP Internal Medicine; Visit Provider Internal Medicine Cardiovascular Disease
DX: I25.5 Ischemic cardiomyopathy (principal); Z95.0 Presence of cardiac pacemaker; Z95.1 Presence of aortocoronary bypass graft
CPT/HCPCS: 93005

== ENCOUNTER → 2023-11-16 23:59 | Outpatient (BNV) | payer OTHER, MEDICARE, SELFPAY ==
[2023-06-24 11:59] VITALS: BP 110/68; BP 112/76; BP 130/70; BMI 26.0
--- NOTE | 2023-11-20 18:13 | MHC.OFFVIS ---
Intake Visit Reasons: Device remote check-Biotronik Allergies ramipril Allergy (Severe, Verified 08/13/23 10:56) angioedema rosuvastatin Adverse Reaction (Intermediate, Verified 08/13/23 10:56) recurrent choking sensation in throat when taking med PFSH Medical History Chronic kidney disease, stage III (moderate) Alcoholism Lichen simplex chronicus Coronary artery disease involving bypass graft of transplanted heart Diabetes mellitus Overweight (BMI 25.0-29.9) Dyschromia Esophageal stricture Coronary artery disease Gout Pure hypercholesterolemia Benign essential hypertension Surgical History S/P CABG x 4 (~04/10/22) History of percutaneous coronary intervention (~2008) History of coronary angioplasty (~1998) History of colonoscopy Varicose vein of leg Family History Father Medical history unknown Mother Diabetes Hypertension Social History Housing: House Alcohol intake: current Alcohol intake frequency: holidays/special occasions only Patient Tobacco Use Status: Former Tobacco user Years Smoked: 25 +/- e-Cigarette/Vaping Use: Never Used Second Hand Smoke Exposure: No service: No Current occupational status: retired Cognitive needs: No Hearing needs: No Vision needs: No Office Procedures Cardiac Device Check Cardiac Device Check Details: Biotronik dual chamber PPM Good battery life ADVERTISING DISPLAY ROTATOR >95% [id number] Cardiac Device Check, pacemaker dual lead Procedure code (CPT) selection complete Assessment & Plan Assessment & Plan (1) Pacemaker: Code(s): Z95.0 - Presence of cardiac pacemaker Category: Medical Plan: Orders: Orders AMB Cardiac Device Follow-up 11/16/23 Z95.0 - Presence of cardiac pacemaker Coding Level of Care Code Procedure Only Diagnoses Pacemaker Z95.0 CPT Codes Cardiac Device Check - Cardiac Device 2: 20240-NQ Cardiac Device Check, pacemaker dual lead ([id number])
== END ==
PROVIDERS: PCP Internal Medicine; Visit Provider Internal Medicine Cardiovascular Disease
DX: Z45.018 Encounter for adjustment and management of other part of cardiac pacemaker (principal)
CPT/HCPCS: 93294

== ENCOUNTER 2023-12-05 09:16 | Outpatient (REF) | payer OTHER, MEDICARE, SELFPAY ==
[2023-06-24 11:59] VITALS: BP 110/68; BP 112/76; BP 130/70; BMI 26.0
[2023-12-05 09:30] LABS: MANUAL DIFF FLAG NO
[2023-12-05 10:15] LABS: Basophils Percent Auto 0.4 % (0-2); Eosinophils Absolute Auto 0.5 X10*3/uL (0.0-0.4); Hematocrit 40.8 % (42.0-52.0); Hemoglobin 13.6 g/dl (14.0-18.0); Imm Gran Abs Auto 0.05 X10*3/uL (0.00-0.03); Imm Gran Pct Auto 0.6 % (0.0-0.4); Lymphocytes Absolute Auto 1.7 X10*3/uL (1.2-4.9); Lymphocytes Percent Auto 22.4 % (20-40); Mean Corpuscular HGB Conc 33.3 g/dl (31.0-36.0); Mean Corpuscular Hemoglobin 27.3 pg (27.0-33.0); Mean Corpuscular Volume 81.9 fL (80.0-98.0); Mean Platelet Volume 10.6 fL (9.4-12.4); Monocytes Absolute Auto 0.7 X10*3/uL (0.1-1.2); Monocytes Percent Auto 9.4 % (2-11); Neutrophils Absolute Auto 4.7 x10*3/uL (2.0-8.3); Neutrophils Percent Auto 61.2 % (45-73); Platelet Count 296 X10*3/uL (160-400); Red Blood Count 4.98 X10*6/uL (4.60-5.80); Red Cell Distribution Width 13.5 % (11.0-16.0); White Blood Count 7.7 X10*3/uL (4.8-10.8)
[2023-12-05 10:27] LABS: Appearance Urine Clear; Color Urine Yellow; Glucose Urine UA Negative (Negative); Leukocyte Esterase Urine Negative (Negative); Nitrite Urine Negative (Negative); PH 5.5 (5.0-9.0); Urine Blood Negative (Negative); Urine Ketones Negative (Negative); Urine Protein Trace mg/dL (Neg-Trace)
[2023-12-05 10:35] LABS: Estimated Average Glucose 180 mg/dL; Hemoglobin A1C 206.1617 umol/L; Hemoglobin A1c % 7.9 % (<6.0); Total Hemoglobin (HGBA1C) 3305.9958 umol/L
[2023-12-05 10:52] LABS: Alanine Aminotransferase 15 U/L (0-40); Albumin Level 4.1 g/dL (3.5-5.0); Alkaline Phosphatase 88 U/L (39-117); Anion Gap 13 (12-20); Aspartate Amino Transferase 12 U/L (5-37); Bilirubin Total 0.6 mg/dL (0.0-1.0); Blood Urea Nitrogen 22 mg/dL (9-16); Calcium 9.1 mg/dL (8.4-10.2); Carbon Dioxide 28 mmol/L (22-29); Chloride 102 mmol/L (96-108); Cholesterol 191 mg/dL (<200); Estimated Glomerular Filt Rate 36; Glucose Fasting 162 mg/dL (60-99); HDL Cholesterol 36 mg/dL (>40); LDL Cholesterol Calculated 117 mg/dL (<100); Potassium 3.3 mmol/L (3.3-5.1); Sodium 140 mmol/L (135-145); Total Protein 6.9 g/dL (6.5-8.0); Triglycerides 194 mg/dL (<150); Uric Acid 8.6 mg/dL (3.4-7.0)
[2023-12-05 11:11] LABS: Vitamin D 25-OH Total 40.3 ng/mL (>30)
[2023-12-05 11:17] LABS: Folate 8.3 ng/mL (> or = 4.0); Vitamin B12 296 pg/mL (200-900)
[2023-12-05 11:51] LABS: Creatinine Urine 172.31 mg/dL
== END 2023-12-05 09:17 | disposition home or self-care (01) ==
LOC: HO.LAB 09:16
PROVIDERS: PCP Internal Medicine; Visit Provider Internal Medicine
DX: D64.9 Anemia, unspecified (principal); E55.9 Vitamin D deficiency, unspecified; E53.8 Deficiency of other specified B group vitamins; M10.9 Gout, unspecified; R30.0 Dysuria; E78.00 Pure hypercholesterolemia, unspecified; E11.9 Type 2 diabetes mellitus without complications
CPT/HCPCS: 36415; 80053; 80061; 81003; 82043; 82306; 82570; 82607; 82746; 83036; 84443; 84550; 85025

== ENCOUNTER 2024-02-10 11:13 | Outpatient (AMB) | payer OTHER, MEDICARE, SELFPAY ==
[2023-06-24 11:59] VITALS: BP 110/68; BP 112/76; BP 130/70; BMI 26.0
[2024-02-10 11:25] VITALS: BP 130/80; PULSE 74; BMI 29.4
--- NOTE | 2024-02-10 11:25 | A.OFFVIS_ITS ---
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 Accompanied by: Spouse Allergies ramipril Allergy (Severe, Verified 08/13/23 10:56) angioedema rosuvastatin Adverse Reaction (Intermediate, Verified 08/13/23 10:56) recurrent choking sensation in throat when taking med Medication List - Last Reconciled 02/10/24 by Lakhwinder Booker MD allopurinol 100 mg PO DAILY amlodipine 10 mg PO DAILY aspirin 81 mg PO DAILY atorvastatin 80 mg PO DAILY 90 days betamethasone dipropionate 0.05% 1 appl topical BID PRN blood sugar diagnostic (FreeStyle Lite Strips) As directed 3 times per day carvedilol 3.125 mg PO BID 90 days clopidogrel 75 mg PO DAILY 90 days colchicine 0.6 mg PO DAILY diclofenac sodium 1% (Voltaren Arthritis Pain) 2 grams topical QID doxepin 10 mg PO BEDTIME garlic 100 mg PO DAILY hydrochlorothiazide 25 mg PO DAILY lancets (FreeStyle Lancets) As directed 3 times per day metformin ER 500 mg PO BID 90 days multivitamin 1 tab PO DAILY pantoprazole 40 mg PO DAILY pen needle, diabetic (Comfort EZ Pen [place]) As directed HPI Comments Details: 74-year-old gentleman here for follow-up. He was previously being monitored for hypertension and stable coronary disease. It appears he got admitted to [facility] with NSTEMI and was taken for cardiac catheterization which revealed multivessel disease. He had cgpc-ci-jdkivqci LV as well as RV dysfunction and was taken for coronary artery bypass surgery. He was on pressors afterwards but recovered fortunately. He has been doing well since then. He underwent cardiac rehabilitation and has completed that at this stage. Post bypass he had echocardiography performed which showed abbi-lt-xuhoaspy LV dysfunction with EF of 35-40% with inferior wall akinesis. He also has severely decreased right ventricular function. 08/27/22: He returns for follow-up. He is saying he has completed cardiac rehabilitation at this point and is walking on his own without any chest discomfort shortness of breath. He has hoarseness of his voice and he is saying this has been present since the bypass surgery. He has not had any breathing issues or stridor. He is taking multiple medications currently. His blood pr essure control is good. His family accompanied him and they had question about 1 of his medication but did not know which medication it is. Overall he is feeling better. I have advised him that he should be exercising regularly. 06/24/23: He returns for follow-up. He is denying any symptoms on follow-up. His blood pressure is elevated. Manual blood pressure is 150/100. Previously was taking carvedilol 6.25 mg and hydrochlorothiazide 25 mg daily. He has currently not on hydrochlorothiazide anymore. Previously had angioedema with ramipril so NIKHIL inhibitor/ARB can not be used. He has mevc-et-yitjxodm RV dysfunction on repeat echocardiography but his LV ejection fraction is normal 55-60% with basal inferior akinesis. The pointed out that Therese has been drinking more alcohol. He is saying that he drinks vodka shots occasionally and does not drink heavily. 09/30/2023: He returns for follow-up. Blood pressure is much better on follow- up. Denying any chest discomfort shortness of breath. Does not appear to be very active and only walks inside his house. I have advised him that he should be exercising regularly. It appears during his admission he also had a pacemaker placed which I was not aware off. He has been going to [facility] for device check and monitoring. 02/10/2020: He returns for follow-up. He has been doing well. No chest pain or shortness of breath. Blood pressure is well controlled. [facility] Medical History Chronic kidney disease, stage III (moderate) Alcoholism Lichen simplex chronicus Coronary artery disease involving bypass graft of transplanted heart Diabetes mellitus Overweight (BMI 25.0-29.9) Dyschromia Esophageal stricture Coronary artery disease Gout Pure hypercholesterolemia Benign essential hypertension Surgical History S/P CABG x 4 (~04/10/22) History of percutaneous coronary intervention (~2008) History of coronary angioplasty (~1998) History of colonoscopy Varicose vein of leg Family History Father Medical history unknown Mother Diabetes Hypertension Social History Housing: House Alcohol intake: current Alcohol intake frequency: holidays/special occasions only Patient Tobacco Use Status: Former Tobacco user Years Smoked: 25 +/- e-Cigarette/Vaping Use: Never Used Second Hand Smoke Exposure: No service: No Current occupational status: retired Cognitive needs: No Hearing needs: No Vision needs: No Review of Systems Const Denies chills, Denies fatigue, Denies fever(s), Denies frequent falls, Denies weakness, Denies weight gain and Denies weight loss ENT Denies dizziness Card Denies chest pain, Denies leg edema, Denies lightheadedness, Denies palpitations, Denies dyspnea and Denies dyspnea on exertion Resp Denies cough, Denies dyspnea and Denies dyspnea on exertion GI Denies hematochezia Musc Denies abnormal gait, Denies muscle weakness, Denies numbness, Denies radiating pain into limb and Denies tingling Neuro Denies abnormal gait, Denies dizziness, Denies frequent falls, Denies numbness, Denies tingling and Denies weakness Endo Denies fatigue and Denies palpitations Physical Exam Vital Signs: Last Vital Signs Pulse 74 02/10/24 11:25 BP 130/80 02/10/24 11:25 BMI result Body Mass Index 29.4 GENERAL APPEARANCE: in no acute distress, pleasant. NECK: no carotid bruit, no jugular venous distention. SKIN: Midline sternotomy scar. HEART: no murmurs, regular rate and rhythm. LUNGS: clear to auscultation bilaterally. ABDOMEN: soft, nontender. EXTREMITIES: no edema. PERIPHERAL PULSES: equal. NEUROLOGIC: No gross deficits, AAO X 3 Assessment & Plan Assessment & Plan (1) S/P CABG (coronary artery bypass graft): Code(s): Z95.1 - Presence of aortocoronary bypass graft Category: Surgical (2) Ischemic cardiomyopathy: Code(s): I25.5 - Ischemic cardiomyopathy Category: Medical (3) Pacemaker: Code(s): Z95.0 - Presence of cardiac pacemaker Category: Medical Plan Pleasant 74-year-old gentleman who is here for follow-up. He has known history of coronary artery disease and underwent coronary artery bypass surgery in the past. In 04/14/2023 we repeated echocardiography which showed EF of 55-60% with basal inferior akinesis. Normal right ventricular cavity size with lwvb-nk-hyjiwnmumw decreased right ventricular systolic function. Clinically he has been stable and does not have any significant volume overload. He does not have any signs/symptoms of RV dysfunction/failure. Blood pressure is well controlled currently. He is on dual antiplatelet therapy and has been tolerating it well. Overall stable. I have advised him to stay physically active. He will see us back in few months. Thank you for allowing me to participate in the care of your patient. Please feel free to contact me if you have any questions. Coding Level of Care Code Est Pt Level 4 (90967) Diagnoses S/P CABG (coronary artery bypass graft) Z95.1 Ischemic cardiomyopathy I25.5 Pacemaker Z95.0
== END 2024-02-10 11:52 | disposition home or self-care (01) ==
PROVIDERS: PCP Internal Medicine; Visit Provider Internal Medicine Cardiovascular Disease
DX: Z95.1 Presence of aortocoronary bypass graft (principal); I25.5 Ischemic cardiomyopathy; Z95.0 Presence of cardiac pacemaker
CPT/HCPCS: 99214

== ENCOUNTER 2024-02-16 12:01 | Outpatient (AMB) | payer OTHER, MEDICARE, SELFPAY ==
[2023-06-24 11:59] VITALS: BP 110/68; BP 112/76; BP 130/70; BMI 26.0
--- NOTE | 2024-02-16 12:36 | A.OFFPC_ITS ---
Vital Signs 02/16/24 12:38 Height 5 ft 4 in Weight 173 lb 4 oz BMI 29.7 BP 130/60 Blood Pressure Location Lt brachial Position Sitting Pulse 73 Pulse Source Pulse Oximeter Pulse Oximetry (%) 99 Oxygen Delivery Method Room Air Intake Visit Reasons: annual exam Intake Note: Patient is here today for a physical. Pt decline flu shot today. 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 Accompanied by: Spouse Allergies ramipril Allergy (Severe, Verified 02/16/24 12:53) angioedema rosuvastatin Adverse Reaction (Intermediate, Verified 02/16/24 12:53) recurrent choking sensation in throat when taking med Medication List - Last Reconciled 02/16/24 by Raul Robles MD amlodipine 10 mg PO DAILY aspirin 81 mg PO DAILY atorvastatin 80 mg PO DAILY 90 days betamethasone dipropionate 0.05% 1 appl topical BID PRN blood sugar diagnostic (FreeStyle Lite Strips) As directed 3 times per day carvedilol 3.125 mg PO BID 90 days clopidogrel 75 mg PO DAILY 90 days colchicine 0.6 mg PO DAILY doxepin 10 mg PO BEDTIME hydrochlorothiazide 25 mg PO DAILY lancets (FreeStyle Lancets) As directed 3 times per day metformin ER 500 mg PO BID 90 days pantoprazole 40 mg PO DAILY pen needle, diabetic (Comfort EZ Pen [place]) As directed Tobacco use date assessed: 02/16/24 Fall risk assessment: No Falls in past year Last assessed Fall Risk: 02/16/24 Dental Screening Dental Screen Date: 04/09/23 HPI annual exam HPI Details Patient comes in today for his annual physical examination States that he feels okay He denies any headaches or dizziness Denies any chest pains, no increased shortness of breath No nausea/vomiting, no abdominal pain No change in bowel habits noted He denies any acute urinary symptoms Needs several of his Rx refilled He had his follow-up labs done a couple of months ago - to discuss his results He was due for repeat colonoscopy back in 2019 but this was not done largely due to the COVID-19 pandemic back then He suffered an NSTEMI that required CABG x 4 in 03/2022, which further delayed his screening exams [facility] Medical History Chronic kidney disease, stage III (moderate) Alcoholism Lichen simplex chronicus Coronary artery disease involving bypass graft of transplanted heart Diabetes mellitus Overweight (BMI 25.0-29.9) Dyschromia Esophageal stricture Coronary artery disease Gout Pure hypercholesterolemia Benign essential hypertension Surgical History S/P CABG x 4 (~04/10/22) History of percutaneous coronary intervention (~2008) History of coronary angioplasty (~1998) History of colonoscopy Varicose vein of leg Family History Father Medical history unknown Mother Diabetes Hypertension Social History Housing: House Alcohol intake: current Alcohol intake frequency: holidays/special occasions only Patient Tobacco Use Status: Former Tobacco user Years Smoked: 25 +/- e-Cigarette/Vaping Use: Never Used Second Hand Smoke Exposure: Yes service: No Current occupational status: retired Cognitive needs: No Hearing needs: No Vision needs: No Questionnaire PHQ-9 Over the last 2 weeks, how often have you been bothered by any of the following problems? 1. Little interest or pleasure in doing things: nearly every day 2. Feeling down, depressed, or hopeless: nearly every day 3. Trouble falling or staying asleep, or sleeping too much: not at all 4. Feeling tired or having little energy: not at all 5. Poor appetite or overeating: not at all 6. Feeling bad about yourself - or that you are a failure or have let yourself or your family down: not at all 7. Trouble concentrating on things, such as reading the newspaper or watching television: not at all 8. Moving or speaking so slowly that other people could have noticed. Or the opposite - being so fidgety or restless that you have been moving around a lot more than usual: not at all 9. Thoughts that you would be better off or of hurting yourself in some way: not at all Total score: 18 Depression Screening Interpretation: Positive Depression Screening Follow-up: Existing condition and In treatment Depression Screening Done: Yes 01504 - PHQ-9 Billing: Yes Source: Developed by Drs. Johnny Cuellar, Lilly B.WMarcus Padgett and colleagues, with an educational lillie from [employer]. Thrive Questionnaire Date Thrive assessed: 02/16/24 I am a: Patient What is your living situation today?: I have a steady place to live Within the past 12 months, did the food you bought not last and you didn't have the money to get more?: I choose not to answer this question Within the past 12 months, did you worry whether your food would run out before you got money to buy more?: I choose not to answer this question Do you have trouble paying for medicines?: No Do you have trouble getting transportation to medical appointments?: No Do you have trouble paying your heating and electricity bill?: No Do you have trouble taking care of your child, family member or friend?: No Do you have trouble with day-to-day activities such as bathing, preparing meals, shopping, managing finances, etc.?: No Are you currently unemployed and looking for a job?: No Are you interested in more education?: No Please select the resources that you would like help with: None Currently or been in a relationship where the following occur: I choose not to answer THRIVE Score: 0 AUDIT C Alcohol Use Questionnaire (AUDIT-C) 1. How often do you have a drink containing alcohol?: Monthly or less 2. How many drinks containing alcohol do you have on a typical day when you are drinking?: 1 or 2 3. How often do you have six or more drinks on one occasion?: Never Total Score: 1 Score Reviewed/Action Taken: Yes KAITLYN-7 AMB Questionnaire KAITLYN-7 Date KAITLYN - 7 assessed: 02/16/24 Feeling nervous, anxious, or on edge: 0 = Not at all Not being able to stop or control worryin = Not at all Worrying too much about different things: 0 = Not at all Trouble relaxin = Not at all Being so restless that it is hard to sit still: 0 = Not at all Becoming easily annoyed or irritable: 0 = Not at all Feeling afraid as if something awful might happen: 0 = Not at all Total KAITLYN-7 score (0-4 normal; 5-9 mild; 10-14 moderate; 15-21 severe): 0 Source: Developed by Drs. Johnny Cuellar, Marcus Laguerre and colleagues, with an educational lillie from [employer]. Review of Systems Const Denies chills, Reports fatigue, Denies fever(s) and Denies headache(s) Eyes Denies blurry vision, Denies change in vision, Denies irritation and Denies itchy eyes ENT Denies dysphagia, Denies dizziness, Denies otalgia, Denies headache(s), Denies neck pain, Denies odynophagia and Denies sore throat Card Denies chest pain, Denies rapid heart rate, Denies palpitations and Denies dyspnea Resp Denies chest congestion, Denies cough, Denies dyspnea and Denies wheezing GI Denies abdominal pain, Denies constipation, Denies dysphagia, Denies heartburn, Denies diarrhea, Denies nausea, Denies odynophagia and Denies vomiting Denies dysuria, Denies nocturia and Denies urinary frequency Musc Denies joint swelling and Denies neck pain Skin/Breast Denies change in pigmentation, Denies lesions, Denies rash and Denies unusual bruising Neuro Denies dizziness and Denies headache(s) Endo Reports fatigue and Denies palpitations Aller/Immun Denies itchy eyes and Denies wheezing Physical exam (Primary Care) Vital Signs: Last Vital Signs Pulse 73 02/16/24 12:38 BP 130/60 02/16/24 12:38 Pulse Ox 99 02/16/24 12:38 Oxygen Delivery Method Room Air 02/16/24 12:38 BMI result Body Mass Index 29.7 Tobacco/Smoking Status: Tobacco use Status Tobacco use date assessed 02/16/24 02/16/24 12:47 Patient Tobacco Use Status Former Tobacco user 02/16/24 12:47 Tobacco use type 06/24/23 11:59 e-Cigarette/Vaping Use Never Used 02/16/24 12:47 Depression Screening Interpretation: Positive Depression Screening Follow-up: E xisting condition and In treatment Thrive Assessment: Date of Thrive Assessment Date Thrive assessed 02/16/24 02/16/24 12:47 Currently or been in a relationship where the following occur: I choose not to answer Const General: no acute distress, alert and awake Orientation/consciousness: patient oriented x3 HENMT Head: Yes normocephalic and Yes atraumatic Ears: external ears normal, TM's normal bilaterally and EAC's normal General nose exam: No nasal discharge present Face and sinus: Yes normal facial exam and Yes sinuses nontender Teeth and gingiva: dentition normal Throat: Yes posterior oropharynx normal and Yes tonsils normal (no TP congestion) Eyes Eyelids: Yes eyelids normal Conjunctivae: conjunctivae normal Pupils: Equal, round and reactive pupils present EOM: EOMs intact bilaterally Neck Neck: Yes supple and No lymphadenopathy Thyroid: Thyroid normal Resp Auscultation: clear to auscultation bilaterally, no rales and no wheezes Cardio Rate: regular rate Rhythm: regular rhythm Heart sounds: no murmurs GI Palpation (GI): Soft to palpation, nontender and No hepatosplenomegaly present Auscultation: normal bowel sounds General: Yes no CVA tenderness Back/Spine/Pelvis Back: no CVA tenderness Thoracic/Lumbar Spine: thoracic and lumbar spine normal to inspection Skin Lesions: no lesions Rashes: no rashes Neuro General: patient oriented x3, moves all extremities, no focal motor deficits and CN's II-XI intact bilaterally Cranial nerves: Yes Equal, round and reactive pupils present Cognition (Neuro): normal cognition Gait exam (Neuro): Normal gait present Extrem General: Yes no clubbing, cyanosis or edema Results Reviewed Results Reviewed: Laboratory Tests 12/05/23 12/05/23 09:25 09:28 WBC 7.7 Hgb 13.6 L Hct 40.8 L Plt Count 296 D Sodium 140 Potassium 3.3 Creatinine 1.88 H Estimated GFR 36 Fasting Glucose 162 H Hemoglobin A1c % 7.9 H Uric Acid 8.6 H Calcium 9.1 AST 12 ALT 15 Triglycerides 194 H Cholesterol 191 LDL Cholesterol, Calc 117 H HDL Cholesterol 36 L Vitamin B12 296 25-OH Vitamin D Total 40.3 TSH 2.60 Ur Specific Clark 1.020 Urine Protein Trace Urine Glucose (UA) Negative Urine Blood Negative Urine Nitrite Negative Ur Leukocyte Esterase Negative Microalb/Creat Ratio 11.0 Coding Level of Care Code Est Pt Prev Care >65y(83091) Diagnoses Coronary artery disease involving [place] coronary artery of [place] heart without angina pectoris I25.10 Coronary Disease-Associated Artery/Lesion type: [place] artery [place] vs. transplanted heart: [place] heart Associated angina: without angina NSTEMI (non-ST elevated myocardial infarction) I21.4 Pure hypercholesterolemia E78.00 Type 2 diabetes mellitus without complication, without long-term current use of insulin E11.9 Diabetes mellitus type: type 2 Diabetes mellitus filler leaf cutter long insulin use: without senior living use Diabetes mellitus complication status: without complication Benign essential hypertension I10 Idiopathic gout, unspecified chronicity, unspecified site M10.00 Gout site: unspecified site Gout etiology: idiopathic Chronicity: unspecified Stage 3b chronic kidney disease N18.32 Chronic kidney disease stage 3 subtype: stage 3b (GFR 30-44) Esophageal stricture K22.2 Memory impairment R41.3 Lichen simplex chronicus L28.0 Dyschromia 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 transplanted heart: [place] heart Associated angina: without angina Qualified Code(s): I25.10 - Atherosclerotic heart disease of [place] coronary artery without angina pectoris Plan: S/P multiple cardiac interventions over the years, most recently CABG x 4 (RASCON to LAD, SVG to PDA, SVG to distal circumflex and SVG to OM) on 04/10/[address] Yuly Washington at [facility] Continue low dose Aspirin 81 mg QD and Clopidogrel 75 mg QD; continue Carvedilol 3.125 mg BID (dose lowered in September 2022 due to TONI) Follow up with cardiology (Dr. Booker) as scheduled (2) NSTEMI (non-ST elevated myocardial infarction): Code(s): I21.4 - Non-ST elevation (NSTEMI) myocardial infarction Category: Medical Plan: Patient was found to have NSTEMI on work ups when he presented to the ER at [facility] on 04/02/2022 with chest discomfort Coronary angiogram revealed multivessel (4-vessel) disease with 80% stenosis of the proximal LAD, 95% stenosis of the left circumflex and 70% stenosis of the mid RCA He eventually underwent coronary intervention with CABG x 4 Continue aggressive risk factor reduction, including BP, cholesterol and DM He is again presently asymptomatic from cardiac standpoint Follow up with cardiology as scheduled (3) Pure hypercholesterolemia: Code(s): E78.00 - Pure hypercholesterolemia, unspecified Category: Medical Plan: Results of his labs done a couple of months ago reviewed and discussed with patient and his Have advised them that his cholesterol numbers have barely improved from previous and are still higher than recommended Have again emphasized that with his cardiac issues, his LDL cholesterol goal s hould be at around 50 to 70 mg/dl Patient has reportedly refused to take all of his meds for a while, including his Atorvastatin but his states that he has been taking it again recently Continue Atorvastatin 80 mg QD for now Will recheck his labs and fasting lipids in 4 months for follow up (4) Diabetes mellitus: Code(s): E11.9 - Type 2 diabetes mellitus without complications Category: Medical Qualifiers: Diabetes mellitus type: type 2 Diabetes mellitus filler leaf cutter long insulin use: without filler leaf cutter long use Diabetes mellitus complication status: without complicat ion Qualified Code(s): E11.9 - Type 2 diabetes mellitus without complications Plan: His HgbA1c has increased to 7.9% on his labs done a couple of months ago (HgbA1c was previously at 6.9% a few months ago) - goal is at least <7.0% He was at 5.3% late last year Reinforced low calorie diet/exercise as tolerated He should be on Metformin ER 500 mg BID but he has also been refusing to take this for a while now, per his - have urged patient to reconsider starting back on his meds His Lantus 10 units QD was discontinued during his recent hospitalization a couple of months ago (5) Benign essential hypertension: Code(s): I10 - Essential (primary) hypertension Category: Medical Plan: Reinforced low sodium diet - goal is systolic BP of 120 mm or less in light of his recent NSTEMI and CABG Continue Carvedilol 3.125 mg BID His Amlodipine 10 mg, HCTZ 25 mg, Spironolactone 25 mg and Furosemide 20 mg were all discontinued back in September 2022 when he was admitted for TONI and hyperkalemia but he was started back on HCTZ 25 mg QD by cardiology a few months ago (6) Gout: Code(s): M10.9 - Gout, unspecified Category: Medical Qualifiers: Gout site: unspecified site Gout etiology: idiopathic Chronicity: unspecified Qualified Code(s): M10.00 - Idiopathic gout, unspecified site Plan: Patient's serum uric acid level is still elevated at 8.6 on his recent labs; it was previously at 8.9 a few months ago Reinforced low purine diet - states that he's had no acute flare ups of gout lately He should be on Colchicine 0.6 mg QD but is also likely not taking this lately (7) Chronic kidney disease, stage III (moderate): Code(s): N18.30 - Chronic kidney disease, stage 3 unspecified Category: Medical Qualifiers: Chronic kidney disease stage 3 subtype: stage 3b (GFR 30-44) Qualified Code(s): N18.32 - Chronic kidney disease, stage 3b Plan: His renal function is mostly umchanged from previous on his recent labs Will continue to monitor his serum creatinine level and GFR regularly (8) Esophageal stricture: Code(s): K22.2 - Esophageal obstruction Category: Medical Plan: Barium swallow done a couple of years ago showed (+) stricture/narrowing at the distal esophageal area Continue Pantoprazole 40 mg QD Follow up with GI as scheduled (9) Memory impairment: Code(s): R41.3 - Other amnesia Category: Medical Plan: Suspect MCI vs early dementia Continue Donepezil 10 mg Q HS Continue Doxepin 10 mg Q HS PRN to help with his anxiety at night but unclear at this point if he is even taking any of these meds He was previously referred to neurology for further evaluation and management (10) Lichen simplex chronicus: Code(s): L28.0 - Lichen simplex chronicus Category: Medical Plan: Continue augmented topical Betamethasone cream 0.05% BID Follow up with dermatology as scheduled (11) Dyschromia: Code(s): L81.9 - Disorder of pigmentation, unspecified Category: Medical Plan: He was seen by dermatology a couple of years ago and 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), which is a benign issue but has no effective treatment options Continue Lotrisone cream BID PRN mostly for symptomatic relief (12) Alcoholism: Code(s): F10.20 - Alcohol dependence, uncomplicated Category: Medical Plan: His now states that patient has been drinking for a while now (years) but he was good at concealing this from everyone until recently States that he was drinking when he had his cardiac event last year and feels that this has only gotten worse as he is now drinking constantly and has refused to take any or most of his medications Patient denies feeling depressed when questioned Have advised that if he needs help to quit, there are plenty of resources that can help him but he has to decide that he wants to quit first - advised that he can call for help at any time (13) Overweight (BMI 25.0-29.9): Code(s): E66.3 - Overweight Category: Medical Plan: Reinforced diet; exercise and weight are somewhat limited due to his current comorbidities but patient is encouraged to stay active as much as he can Plan Follow up in 4 months Orders: Orders Complete Blood Count Auto Diff 06/04/24 D64.9 - Anemia, unspecified TSH reflex Free T4 06/04/24 E78.00 - Pure hypercholesterolemia, unspecified Vitamin D 25-OH Total 06/04/24 E55.9 - Vitamin D deficiency, unspecified Uric Acid 06/04/24 M10.9 - Gout, unspecified Hemoglobin A1c 06/04/24 E11.9 - Type 2 diabetes mellitus without complications Comprehensive [place]. Panel Fast 06/04/24 E78.00 - Pure hypercholesterolemia, unspecified Lipid Panel 06/04/24 E78.00 - Pure hypercholesterolemia, unspecified Microalbumin, Random (w Creat) 06/04/24 E11.9 - Type 2 diabetes mellitus without complications UA CC w/rflx Micro + Cult 06/04/24 R30.0 - Dysuria Vitamin B12 and Folate 06/04/24 E53.8 - Deficiency of other specified B group vitamins Medications: Changed From colchicine 0.6 mg PO DAILY To colchicine 0.6 mg PO DAILY 90 days 90 tabs 1RF gout From doxepin 10 mg PO BEDTIME To doxepin 10 mg PO BEDTIME 90 days 90 caps 1RF From pantoprazole 40 mg PO DAILY To pantoprazole 40 mg PO DAILY 90 days 90 tabs 1RF Refilled clopidogrel 75 mg PO DAILY 90 days 90 tabs 3RF metformin ER 500 mg PO BID 90 days 180 tabs 3RF E11.9 - Type 2 diabetes mellitus without complications blood sugar diagnostic (FreeStyle Lite Strips) As directed 3 times per day 100 ea 12RF E11.9 - Type 2 diabetes mellitus without complications amlodipine 10 mg PO DAILY 60 tabs 3RF atorvastatin 80 mg PO DAILY 90 days 90 tabs 3RF E78.00 - Pure hypercholesterolemia, unspecified, I25.10 - Atherosclerotic heart disease of [place] coronary artery without angina pectoris betamethasone dipropionate 0.05% 1 appl topical BID PRN 60 mL 5RF skin irritation L28.2 - Other prurigo carvedilol must administer with a meal/food 3.125 mg PO BID 90 days 180 tabs 3RF hydrochlorothiazide 25 mg PO DAILY 60 tabs 3RF I10 - Essential (primary) hypertension lancets (FreeStyle Lancets) As directed 3 times per day 100 ea 12RF E11.9 - Type 2 diabetes mellitus without complications
[2024-02-16 12:38] VITALS: BP 130/60; PULSE 73; O2SAT 99; BMI 29.7
== END 2024-02-16 13:04 | disposition home or self-care (01) ==
PROVIDERS: PCP Internal Medicine; Visit Provider Internal Medicine
DX: Z00.00 Encounter for general adult medical examination without abnormal findings (principal); E11.9 Type 2 diabetes mellitus without complications; I21.4 Non-ST elevation (NSTEMI) myocardial infarction; N18.32 Chronic kidney disease, stage 3b; F10.20 Alcohol dependence, uncomplicated; I25.10 Atherosclerotic heart disease of native coronary artery without angina pectoris; E78.00 Pure hypercholesterolemia, unspecified; I10 Essential (primary) hypertension; M10.00 Idiopathic gout, unspecified site; K22.2 Esophageal obstruction; R41.3 Other amnesia; L28.0 Lichen simplex chronicus

== ENCOUNTER → 2024-02-16 12:01 | Outpatient (BNVA) | payer OTHER, MEDICARE, SELFPAY ==
[2023-06-24 11:59] VITALS: BP 110/68; BP 112/76; BP 130/70; BMI 26.0
== END ==
PROVIDERS: PCP Internal Medicine; Visit Provider Internal Medicine
DX: I25.10 Atherosclerotic heart disease of native coronary artery without angina pectoris (principal); E78.00 Pure hypercholesterolemia, unspecified; M10.00 Idiopathic gout, unspecified site; E11.22 Type 2 diabetes mellitus with diabetic chronic kidney disease; I12.9 Hypertensive chronic kidney disease with stage 1 through stage 4 chronic kidney disease, or unspecified chronic kidney disease; N18.32 Chronic kidney disease, stage 3b; K22.2 Esophageal obstruction; R41.3 Other amnesia; L28.0 Lichen simplex chronicus; L81.9 Disorder of pigmentation, unspecified; E66.3 Overweight; F10.20 Alcohol dependence, uncomplicated; I25.2 Old myocardial infarction; Z79.82 Long term (current) use of aspirin; Z79.899 Other long term (current) drug therapy; Z95.1 Presence of aortocoronary bypass graft
CPT/HCPCS: 96127

== ENCOUNTER → 2024-02-16 23:59 | Outpatient (BNV) | payer OTHER, MEDICARE, SELFPAY ==
[2023-06-24 11:59] VITALS: BP 110/68; BP 112/76; BP 130/70; BMI 26.0
--- NOTE | 2024-02-25 19:03 | A.OFFVIS_ITS ---
Intake Visit Reasons: Remote HF Device Check-Biotronik Allergies ramipril Allergy (Severe, Verified 02/16/24 12:53) angioedema rosuvastatin Adverse Reaction (Intermediate, Verified 02/16/24 12:53) recurrent choking sensation in throat when taking med PFSH Medical History Chronic kidney disease, stage III (moderate) Alcoholism Lichen simplex chronicus Coronary artery disease involving bypass graft of transplanted heart Diabetes mellitus Overweight (BMI 25.0-29.9) Dyschromia Esophageal stricture Coronary artery disease Gout Pure hypercholesterolemia Benign essential hypertension Surgical History S/P CABG x 4 (~04/10/22) History of percutaneous coronary intervention (~2008) History of coronary angioplasty (~1998) History of colonoscopy Varicose vein of leg Family History Father Medical history unknown Mother Diabetes Hypertension Social History Housing: House Alcohol intake: current Alcohol intake frequency: holidays/special occasions only Patient Tobacco Use Status: Former Tobacco user Years Smoked: 25 +/- e-Cigarette/Vaping Use: Never Used Second Hand Smoke Exposure: Yes service: No Current occupational status: retired Cognitive needs: No Hearing needs: No Vision needs: No Office Procedures Cardiac Device Check Cardiac Device Check Details: PPM Battery life good [employer]>99% No new alerts. 66732-DP Cardiac Device Check, pacemaker dual lead Procedure code (CPT) selection complete Assessment & Plan Assessment & Plan (1) Pacemaker: Code(s): Z95.0 - Presence of cardiac pacemaker Category: Medical Plan: Coding Level of Care Code Procedure Only Diagnoses Pacemaker Z95.0 CPT Codes Cardiac Device Check - Cardiac Device 2: 79280-YX Cardiac Device Check, pacemaker dual lead ([id number])
== END ==
PROVIDERS: PCP Internal Medicine; Visit Provider Internal Medicine Cardiovascular Disease
DX: Z45.018 Encounter for adjustment and management of other part of cardiac pacemaker (principal)
CPT/HCPCS: 93294

== ENCOUNTER → 2024-03-22 23:59 | Outpatient (BNV) | payer OTHER, MEDICARE, SELFPAY ==
[2023-06-24 11:59] VITALS: BP 110/68; BP 112/76; BP 130/70; BMI 26.0
--- NOTE | 2024-03-29 13:57 | MHC.OFFVIS ---
Intake Visit Reasons: Remote HF Device Check-Biotronik Allergies ramipril Allergy (Severe, Verified 02/16/24 12:53) angioedema rosuvastatin Adverse Reaction (Intermediate, Verified 02/16/24 12:53) recurrent choking sensation in throat when taking med PFSH Medical History Chronic kidney disease, stage III (moderate) Alcoholism Lichen simplex chronicus Coronary artery disease involving bypass graft of transplanted heart Diabetes mellitus Overweight (BMI 25.0-29.9) Dyschromia Esophageal stricture Coronary artery disease Gout Pure hypercholesterolemia Benign essential hypertension Surgical History S/P CABG x 4 (~04/10/22) History of percutaneous coronary intervention (~2008) History of coronary angioplasty (~1998) History of colonoscopy Varicose vein of leg Family History Father Medical history unknown Mother Diabetes Hypertension Social History Housing: House Alcohol intake: current Alcohol intake frequency: holidays/special occasions only Patient Tobacco Use Status: Former Tobacco user Years Smoked: 25 +/- e-Cigarette/Vaping Use: Never Used Second Hand Smoke Exposure: Yes service: No Current occupational status: retired Cognitive needs: No Hearing needs: No Vision needs: No Office Procedures Cardiac Device Check Cardiac Device Check Details: Heart failure monitoring. Elevated thoracic impedance. Ongoing volume overload. [id number] Device Interrogation, cardiac physiologic monitor system Procedure code (CPT) selection complete Assessment & Plan Assessment & Plan (1) Pacemaker: Code(s): Z95.0 - Presence of cardiac pacemaker Category: Medical Plan Orders: Orders AMB Cardiac Device Follow-up 03/22/24 Z95.0 - Presence of cardiac pacemaker Coding Level of Care Code Procedure Only Diagnoses Pacemaker Z95.0 CPT Codes Cardiac Device Check - Cardiac Device 10: [id number] Device Interrogation, cardiac physiologic monitor system ([id number])
== END ==
PROVIDERS: PCP Internal Medicine; Visit Provider Internal Medicine Cardiovascular Disease
DX: I50.9 Heart failure, unspecified (principal); Z95.0 Presence of cardiac pacemaker
CPT/HCPCS: 93290

== ENCOUNTER 2024-04-14 13:46 | Outpatient (AMB) | payer OTHER, MEDICARE, SELFPAY ==
[2023-06-24 11:59] VITALS: BP 110/68; BP 112/76; BP 130/70; BMI 26.0
[2024-04-14 13:50] VITALS: BP 117/74; PULSE 65; BMI 27.1
--- NOTE | 2024-04-14 13:50 | A.OFFVIS_ITS ---
Vital Signs 04/14/24 13:50 Height 5 ft 4 in Weight 157 lb 13.616 oz BMI 27.1 BP 117/74 Blood Pressure Location Rt brachial Position Sitting Pulse 65 Pulse Source Monitor Intake Visit Reasons: f/up per KM Senior Pricing Analyst Required: No Rubber Roller Grinder: Rubber Roller Grinder Present Allergies ramipril Allergy (Severe, Verified 04/14/24 13:53) angioedema rosuvastatin Adverse Reaction (Intermediate, Verified 04/14/24 13:53) recurrent choking sensation in throat when taking med Medication List - Last Reconciled 04/14/24 by Pastora Clark PAPER REWINDER-C amlodipine 10 mg PO DAILY aspirin 81 mg PO DAILY atorvastatin 80 mg PO DAILY 90 days betamethasone dipropionate 0.05% 1 appl topical BID PRN blood sugar diagnostic (FreeStyle Lite Strips) As directed 3 times per day carvedilol 3.125 mg PO BID 90 days clopidogrel 75 mg PO DAILY 90 days colchicine 0.6 mg PO DAILY 90 days doxepin 10 mg PO BEDTIME 90 days hydrochlorothiazide 25 mg PO DAILY lancets (FreeStyle Lancets) As directed 3 times per day metformin ER 500 mg PO BID 90 days metformin ER 500 mg PO BID pantoprazole 40 mg PO DAILY 90 days pen needle, diabetic (Comfort EZ Pen [place]) As directed HPI HPI f/up per KM: Details: Therese is a 74 yo male with PMH of HTN, HLD, DM, CKD, Pacemaker, CAD, PCI to RCA 2008, s/p 4 vessel CABG 04/10/22, ischemic CMP with normalization of EF who presents for follow up. Today he reports he has been feeling well with no concerning symptoms. He denies chest discomfort at rest or with activity. He denies shortness of breath, PND, orthopnea or edema. No heart palpitations, lightheadedness, presyncope, syncope. He walks around his house for exercise. He does have stairs with in the home which he says he tolerates well. says she gives him his meds when she is home otherwise his daughter gives them. [facility] Medical History Chronic kidney disease, stage III (moderate) Alcoholism Lichen simplex chronicus Coronary artery disease involving bypass graft of transplanted heart Diabetes mellitus Overweight (BMI 25.0-29.9) Dyschromia Esophageal stricture Coronary artery disease Gout Pure hypercholesterolemia Benign essential hypertension Surgical History S/P CABG x 4 (~04/10/22) History of percutaneous coronary intervention (~2008) History of coronary angioplasty (~1998) History of colonoscopy Varicose vein of leg Family History Father Medical history unknown Mother Diabetes Hypertension Social History Housing: House Alcohol intake: current Alcohol intake frequency: holidays/special occasions only Patient Tobacco Use Status: Former Tobacco user Years Smoked: 25 +/- e-Cigarette/Vaping Use: Never Used Second Hand Smoke Exposure: Yes service: No Current occupational status: retired Cognitive needs: No Hearing needs: No Vision needs: No Review of Systems Const All systems reviewed & are unremarkable except as noted in HPI and below ENT Denies dizziness Card Denies chest pain, Denies chest pain at rest, Denies chest pain with activity, Denies rapid heart rate, Denies pedal edema, Denies edema, Denies leg edema, Denies lightheadedness, Denies palpitations, Denies dyspnea, Denies dyspnea on exertion and Denies orthopnea Resp Denies cough, Denies dyspnea and Denies dyspnea on exertion GI Denies hematochezia and Denies change in stool character Musc Denies abnormal gait, Denies limited range of motion, Denies muscle cramps, Denies muscle weakness, Denies numbness, Denies radiating pain into limb, Denies stiffness and Denies tingling Neuro Denies abnormal gait, Denies dizziness, Denies numbness and Denies tingling Endo Denies palpitations Physical Exam Vital Signs: Last Vital Signs Pulse 65 04/14/24 13:50 BP 117/74 04/14/24 13:50 BMI result Body Mass Index 27.1 Const General: cooperative, healthy appearing, comfortable and no acute distress Orientation/consciousness: patient oriented x3 Neck Neck: Yes normal visual inspection and Yes no JVD Resp Effort & Inspection: normal respiratory effort Auscultation: clear to auscultation bilaterally, no rales, no rhonchi and no wheezes Cardio Rate: regular rate Rhythm: regular rhythm Heart sounds: S1 normal heart sound present, S2 normal heart sound present, no murmurs and no rubs Neuro General: patient oriented x3 Extrem General: Yes normal to inspection and No no pedal edema Psych Appearance: grossly normal Mental Status: mental status grossly normal Speech and movement: Normal speech and movement present Office Procedures Cardiac Device Check Cardiac Device Check Details: Biotronik dual chamber pacemaker interrogation today shows battery 85%, DDD mode low rate 60, atrial threshold 1.3 v at 0.4ms, V threshold 0.8 v at 0.4 ms, A pace 1%, V pace 99% [id number]-[id number] Cardiac Device Check, pacemaker dual lead Procedure code (CPT) selection complete EKG Details: Today, read by me atrial sensed, ventricular paced rhythm rate 65, QTc 445ms [id number], Complete Assessment & Plan Assessment & Plan (1) Coronary artery disease: Comment: S/P multiple interventions - 1998, 2008 and 2022 (see surgical Hx) Code(s): I25.10 - Atherosclerotic heart disease of [place] coronary artery without angina pectoris Category: Medical Qualifiers: Associated angina: without angina Coronary Disease-Associated Artery/Lesion type: [place] artery [place]ime vs. transplanted heart: [place] heart Qualified Code(s): I25.10 - Atherosclerotic heart disease of [place] coronary artery without angina pectoris Plan: History of CAD with prior angioplasty and stent who had cardiac catheterization in 2022 showing multivessel disease. He underwent a four-vessel coronary artery bypass grafting on 04/10/2022. He initially had ischemic cardiomyopathy with EF 35-40% and decreased RV systolic function. A follow-up echo done 11/14/2022 showed normalization of EF 55-60%, [id number] decrease in the RV systolic function. Today He has no reports angina. EKG done today showing atrial sense, ventricular paced rhythm. He continues on dual antiplatelet therapy with aspirin and Plavix. He is not on Ashish/Arb due to angioedema. He is on carvedilol for neurohormonal modulation, rate control. He is on high-dose atorvastatin with LDL goal less than 70. No med changes made today. Recommended follow-up in 6 months however states he has an appointment with Dr. Booker in May 2024 which they would like to keep. (2) Ischemic cardiomyopathy: Code(s): I25.5 - Ischemic cardiomyopathy Category: Medical Plan: As above, improved (3) Benign essential hypertension: Code(s): I10 - Essential (primary) hypertension Category: Medical Plan: Well controlled at this time. No medication changes made. Continue amlodipine, carvedilol and hydrochlorothiazide. (4) Pure hypercholesterolemia: Code(s): E78.00 - Pure hypercholesterolemia, unspecified Category: Medical Plan: [place] LDL goal < 70. Labs done 12/05/23 showed LDL 117. There was a question of med compliance based on message on device check entry 04/12/2024 that stated he is not taking his medications and is just sleeping all day. At this office visit today I did ask him about med compliance and tells me she now gives him his medications and if she does not do it his daughter is there to do it. Recommend recheck of fasting lipids in the near future an adjustment in medication if warranted. Would add Zetia if LDL not well controlled on high- dose statin. (5) S/P CABG x 4: Onset Date: ~04/10/22 Comment: RASCON to mid LAD, SVG to PDA, SVG to distal circumflex and SVG to OM1 - Dr. Yuly Washington at [facility] Code(s): Z95.1 - Presence of aortocoronary bypass graft Category: Surgical Plan Time spent on chart review, documentation, interview and assessment Coding Level of Care Code Est Pt Level 4 (77120) Complex EM visit Add On G2211 Diagnoses Coronary artery disease involving [place] coronary artery of [place] heart without angina pectoris I25.10 Associated angina: without angina Coronary Disease-Associated Artery/Lesion type: [place] artery [place] vs. transplanted heart: [place] heart Ischemic cardiomyopathy I25.5 Benign essential hypertension I10 Pure hypercholesterolemia E78.00 S/P CABG x 4 Z95.1 CPT Codes Cardiac Device Check - Cardiac Device 2: [id number] Cardiac Device Check, pacemaker dual lead ([id number]) EKG - CPT: 39381-[id number], Complete ([id number]) Time Spent (min) 28
--- OUTSIDE RECORDS SUMMARY | 2024-04-14 14:47 | XMS_ITS | Encounter Summary ---
Author Organization [facility] Address [address] [place] [address] Phone Care Team Providers Care Bicycle I Assembler Name Role Phone Raul Robles MD Primary Care Provider [phone]- [phone] Encounter Details Date Type Department Care Team (Late Contact Info) Description 10/29/2022 Documentation Only [facility] [address] [place] [address] Bartolo Dumont MD [address] [place] [address] [place] [address] Social History Tobacco Use Types Packs/Day Years Used Date Smoking Tobacco: Never Assessed Sex and Gender Information Value Date Recorded Sex Assigned at Not on file Legal Sex Male 2:25 PM EDT Gender Identity Not on file Sexual Orientation Not on file documented as of this encounter Plan of Treatment Upcoming Encounters Date Type Department Care Team (Late Contact Info) Description 08/17/2024 1:45 PM EDT Office Visit [facility] [address] [place] [address] Bartolo Dumont MD [address] [place] [address] documented as of this encounter Visit Diagnoses Not on filedocumented in this encounter Care Teams Bicycle I Assembler Relationship Specialty Start Date End Date Raul Robles MD [address] [place] [address] [phone] PCP - General Internal Medicine 10/01/22 documented as of this encounter
--- OUTSIDE RECORDS SUMMARY | 2024-04-14 14:47 | XMS_ITS | Clinical Summary ---
Author Organization [facility] Address [address] [place] [address] Care Team Providers Care Ld Teacher Name Role Phone Raul Robles MD Primary Care Provider Social History Tobacco Use Types Packs/Day Years Used Date Smoking Tobacco: Never Assessed Sex and Gender Information Value Date Recorded Sex Assigned at Not on file Legal Sex Male 9:09 PM EST Gender Identity Not on file Sexual Orientation Not on file Plan of Treatment Upcoming Encounters Date Type Department Care Team ([facility] st Contact Info) Description 05/18/2024 9:30 AM EDT Ancillary Procedure [facility] [address] [facility] [address] [place] [address] Health Maintenance Due Date Last Done Comments DTaP,Tdap,and Td Vaccines (1 - Tdap) 01/16/1971 Pneumococcal Vaccine: 50+ Ye ars (1 of 1 - PCV) 01/16/2002 Zoster Vaccines (1 of 2) 01/16/2002 Abdominal Aortic Aneurysm (A AA) Screen 03/25/2023 Cholesterol Screening (Lipid Panel) 03/25/2023 Colorectal Cancer Screening: Colonoscopy 03/25/2023 Depression Screening 03/25/2023 Falls Risk Assessment 03/25/2023 Hepatitis C Screening 03/25/2023 Social Influencers of Health Screening 03/25/2023 COVID-19 Vaccine ( - 2023-2 5 season) 2023 Influenza Vaccine (#1) 2023 RSV Immunization Patients 60 + Years Old (1 - 1-dose 75+ series) 01/16/2027 HIB Vaccines Aged Out No longer eligi ble based on patient's age to complete this topic HPV Vaccines Aged Out No longer eligi ble based on patient's age to complete this topic Hepatitis A Vaccines Aged Out No long er eligible based on patient's age to complete this topic Hepatitis B Vaccines Aged Out No long er eligible based on patient's age to complete this topic IPV Vaccines Aged Out No longer eligi ble based on patient's age to complete this topic MMR Vaccines Aged Out No longer eligi ble based on patient's age to complete this topic Meningococcal ACWY Vaccine Aged Out N o longer eligible based on patient's age to complete this topic Meningococcal B Vacine Aged Out No lo nger eligible based on patient's age to complete this topic RSV Immunization Patients Un flores 20 months Aged Out No longer eligible b ased on patient's age to complete this topic Varicella Vaccines Aged Out No longer eligible based on patient's age to complete this topic Insurance [facility] [address] [place] [address] Care Teams Ld Teacher Relationship Specialty Start Date End Date Raul Robles MD [address] [place], [place] PCP - General 04/22/22
--- OUTSIDE RECORDS SUMMARY | 2024-04-14 14:47 | XMS_ITS | Clinical Summary ---
Author Organization [facility], Address [address] [place] [address] [place] [address] Phone Care Team Providers Care Spectrographer Name Role Phone Raul Robles MD Primary Care Provider [phone]- [phone] Allergies Active Allergy Reactions Criticality Noted Date Comments Ramipril 10/29/2022 Angioedema Medications atorvastatin (LIPITOR) 80 MG tablet Take 80 mg by mouth 1 (one) time each day 10/06/2022 Active carvedilol (COREG) 3.125 MG tablet 10/28/2022 Active clopidogrel (PLAVIX) 75 MG tablet Take 75 mg by mouth 1 (one) time each day 08/25/2022 Active colchicine 0.6 MG tablet Take 0.6 mg by mouth every other day 10/20/2022 Active donepezil (ARICEPT) 10 MG tablet Take 10 mg by mouth at bed time at bedtime 08/18/2022 Active doxepin (SINEquan) 10 MG capsule TAKE 1 CAPSULE BY MOUTH AT BEDTIME FOR ITCH 08/11/2022 Active metFORMIN XR (GLUCOPHAGE-XR) 500 MG 24 hr tablet TAKE 1 TABLET BY MOUTH TWO TIMES A DAY 08/18/2022 Active pantoprazole (PROTONIX) 40 MG EC tablet TAKE 1 TABLET BY MOUTH EVERY DAY FOR 14 DAYS THEN STOP 09/27/2022 Active hydrOXYzine (ATARAX) 10 MG tablet Take 10 mg by mouth 3 (three) times a day if needed for itching Active insulin glargine (LANTUS) 100 UNIT/ML injection Inject under the skin every night Active aspirin (ST YAN) 81 MG EC tablet Take 81 mg by mouth 1 (one) time each day Active amLODIPine (NORVASC) 10 MG tablet Take 10 mg by mouth 1 (one) time each day 11/14/2023 Active Dupixent 300 MG/2ML solution auto-injector 01/25/2024 Activ e Active Problems Problem Noted Date Diagnosed Date Stage 3b chronic kidney disease 02/10/2024 Hypertension 10/29/2022 10/29/2022 Type 2 diabetes mellitus 10/29/2022 023 Acute nontraumatic kidney injury 10/29/2022 Hyperkalemia 10/29/2022 Encounters Date Type Department Care Team Description 02/10/2024 2:45 PM EST Office Visit [facility] [address] [place] [address] Bartolo Dumont MD Stage 3b chronic kidney disease (HCC) (Primary Dx) from Last 3 Months Immunizations Name Administration Dates Next Due Pfizer SARS-COV-2 03/19/2021,07/11/2020,06/21/19 21 Social History Tobacco Use Types Packs/Day Years Used Date Smoking Tobacco: Never Assessed Sex and Gender Information Value Date Recorded Sex Assigned at Not on file Legal Sex Male 2:25 PM EDT Gender Identity Not on file Sexual Orientation Not on file Plan of Treatment Upcoming Encounters Date Type Department Care Team (Late st Contact Info) Description 08/17/2024 1:45 PM EDT Office Visit [facility] [address] [place] [address] Bartolo Dumont MD [address] [place] [address] [place] [id number] Health Maintenance Due Date Last Done Comments Pneumococcal Vaccine: 65+ Ye ars (1 of 2 - PCV) 01/16/1956 Colorectal Cancer Screening: Annual FOBT 01/16/2001 Colorectal Cancer Screening: Colonoscopy 01/16/2001 Colorectal Cancer Screening: Sigmoidoscopy 01/16/2001 Diabetes: Hemoglobin A1C 10/06/2022 Diabetes: Ophthalmology Exam 10/06/2022 Diabetes: Pedal Pulse Checked 10/06/2022 Diabetes: Sensory Foot Exam 10/06/2022 Diabetes: Visual Foot Exam 10/06/2022 Influenza Vaccine (#1) 2023 Hepatitis B Vaccine Aged Out No longe r eligible based on patient's age to complete this topic Procedures Procedure Name Priority Date/Time Associated Diagnosis Comments FERRITIN Routine 01/29/2024 10:09 AM EST Stage 3b chronic kidney disease (HCC) IRON PANEL (FE, TIBC, TSAT) Routine 01/29/2024 10:09 AM EST Stage 3b chronic kidney disease (HCC) PTH, INTACT Routine 01/29/2024 10:09 AM EST Stage 3b chronic kidney disease (HCC) URINE ALBUMIN / CREATININE RATIO Routine 01/29/2024 10:09 AM EST Stage 3b chronic kidney disease (HCC) URINALYSIS WITH MICROSCOPIC Routine 01/29/2024 10:09 AM EST Stage 3b chronic kidney disease (HCC) URIC ACID Routine 01/29/2024 10:09 AM EST Stage 3b chronic kidney disease (HCC) PHOSPHATE ( PHOSPHORUS) Routine 01/29/2024 10:09 AM EST Stage 3b chronic kidney disease (HCC) MAGNESIUM Routine 01/29/2024 10:09 AM EST Stage 3b chronic kidney disease (HCC) CBC AND DIFFERENTIAL Routine 01/29/2024 10:09 AM EST Stage 3b chronic kidney disease (HCC) COMPREHENSIVE METABOLIC PANEL Routine 01/29/2024 10:09 AM EST Stage 3b chronic kidney disease (HCC) MICROSCOPIC EXAMINATION - DO NOT USE Routine 01/29/2024 10:09 AM EST from Last 3 Months Results * Microscopic Examination (01/29/2024 10:09 AM EST) WBC, Urine 0-5 0 - 5 /hpf [facility] RBC, Urine None seen 0 - 2 /hpf [facility] Squamous Epithelial, Urine 0-10 0 - 10 /hpf [facility] Casts None seen None seen /lpf [facility] Bacteria, Urine None seen None seen/Few [facility] 01/29/2024 10:0 9 AM EST 01/29/2024 Bartolo Dumont MD LAB MICROBIOLOGY - GENERAL ORD ERABLES Final Result [facility] [address] [place] [address] * Iron Panel (Fe, TIBC, TSAT) (01/29/2024 10:09 AM EST) TIBC 383 250 - 450 ug/dL [facility] UIBC 301 111 - 343 ug/dL [facility] Iron 82 38 - 169 ug/dL [facility] Iron Saturation (TSat) 21 15 - 55 % [facility] Blood (Blood, Venous) 01/29/2024 10:09 AM EST 01/29/2024 Bartolo Dumont MD LAB BLOOD ORDERABLES Final Res ult [facility] [address] [place] [address] * Urine Albumin / Creatinine Ratio (01/29/2024 10:09 AM EST) Creatinine, Ur 176.7 Not Estab. mg/dL [facility] Urine Microalbumin 44.6 Not Estab. ug/mL [facility] Microalbumin/Crea tinine Ratio 25 0 - 29 mg/g creat [facility] Comment: ? Normal: ?0 - ??29 ? Moderately increased: 30 - 300 ? Severely increased: ? >300 Urine (Urine, Clean Catch) 01/29/2024 10:09 AM EST 01/29/2024 us Bartolo Dumont MD LAB URINE ORDERABLES Final Res ult [facility] [address] [place] [address] * (ABNORMAL) Urinalysis with microscopic (01/29/2024 10:09 AM EST) Specific [place], Urine 1.024 1.005 - 1.030 [facility] pH Urine 5.5 5.0 - 7.5 [facility] Color, Urine Yellow Yellow [facility] [phone] Appearance Urine Clear Clear [facility] [phone] WBC Esterase Urine Negative Negative [facility] Protein, Ur 1+(A) Negative/Tra ce [facility] [phone] Glucose, Ur 3+(A) Negative [facility] Ketones, Urine Negative Negative [facility] Blood Urine Negative Negative [facility] Bilirubin Urine Negative Negative [facility] [phone] Urobilinogen Urine 0.2 0.2 - 1.0 mg/dL [facility] Nitrite, Urine Negative Negative [facility] Microscopic Examination See below: [facility] Comment:Microscopic was zohiab cated and was performed. Urine (Urine, Clean Catch) 01/29/2024 10:09 AM EST 01/29/2024 us Bartolo Dumont MD LAB URINE ORDERABLES Final Res ult [facility] [address] [place] [address] * (ABNORMAL) CBC and differential (01/29/2024 10:09 AM EST) WBC 8.7 3.4 - 10.8 x10E3/uL [facility] RBC 5.64 4.14 - 5.80 x10E6/uL [facility] Hemoglobin 15.2 13.0 - 17.7 g/dL [facility] Hematocrit 47.1 37.5 - 51.0 % [facility] MCV 84 79 - 97 fL [facility] MCH 27.0 26.6 - 33.0 pg [facility] MCHC 32.3 31.5 - 35.7 g/dL [facility] RDW 13.0 11.6 - 15.4 % [facility] Platelets 270 150 - 450 x10E3/uL [facility] Neutrophils Relative 63 Not Estab. % [facility] Lymphocytes Relative 20 Not Estab. % [facility] Monocytes 9 Not Estab. % [facility] Eosinophils Relative 7 Not Estab. % [facility] Basophils Relative 0 Not Estab. % [facility] Neutrophils Absolute 5.6 1.4 - 7.0 x10E3/uL [facility] Lymphocytes Absolute 1.7 0.7 - 3.1 x10E3/uL [facility] Monocytes Absolute 0.8 0.1 - 0.9 x10E3/uL [facility] Eosinophils Absolute 0.6(H) 0.0 - 0.4 x10E3/uL [facility] Basophils Absolute 0.0 0.0 - 0.2 x10E3/uL [facility] Immature Granulocytes 1 Not Estab. % [facility] Immature Grans (Absolute) 0.0 0.0 - 0.1 x10E3/uL [facility] Blood (Blood, Venous) 01/29/2024 10:09 AM EST 01/29/2024 Bartolo Dumont MD LAB BLOOD ORDERABLES Final Res ult Performing Organization Address City/[facility]/ZIP Co de Phone Number [facility] [address] [place] [address] * Uric acid (01/29/2024 10:09 AM EST) Uric Acid 8.2 3.8 - 8.4 mg/dL [facility] Comment:Therapeutic target f or gout patients: <6.0 Blood (Blood, Venous) 01/29/2024 10:09 AM EST 01/29/2024 Bartolo Dumont MD LAB BLOOD ORDERABLES Final Res ult [facility] [address] [place] [address] * Phosphorus (01/29/2024 10:09 AM EST) Phosphorus 3.8 2.8 - 4.1 mg/dL [facility] Blood (Blood, Venous) 01/29/2024 10:09 AM EST 01/29/2024 Bartolo Dumont MD LAB BLOOD ORDERABLES Final Res ult [facility] [address] [place] [address] * PTH, intact (01/29/2024 10:09 AM EST) Pathologist [facility] PTH 44 15 - 65 pg/mL [facility] Blood (Blood, Venous) 01/29/2024 10:09 AM EST 01/29/2024 Bartool Dumont MD LAB BLOOD ORDERABLES Final Res ult Performing Organization Address City/[facility]/ZIP Co de Phone Number [facility] [address] [place] [address] * Magnesium (01/29/2024 10:09 AM EST) Pathologist [facility] Magnesium 1.8 1.6 - 2.3 mg/dL [facility] Blood (Blood, Venous) 01/29/2024 10:09 AM EST 01/29/2024 Bartolo Dumont MD LAB BLOOD ORDERABLES Final Res ult Performing Organization Address [facility] Co de Phone Number [facility] [address] [place] [address] * Ferritin (01/29/2024 10:09 AM EST) Ferritin 40 30 - 400 ng/mL [facility] Blood (Blood, Venous) 01/29/2024 10:09 AM EST 01/29/2024 us Bartolo Dumont MD LAB BLOOD ORDERABLES Final Res ult [facility] [address] [place] [address] * (ABNORMAL) Comprehensive metabolic panel (01/29/2024 10:09 AM EST) Glucose 396(H) 70 - 99 mg/dL [facility] BUN 31(H) 8 - 27 mg/dL [facility] Creatinine 2.09(H) 0.76 - 1.27 mg/dL [facility] eGFR CKD-EPI CR 2020 33(L) >59 mL/min/1.7 3 [facility] BUN/Creatinine Ratio 15 10 - 24 [facility] Sodium 138 134 - 144 mmol/L [facility] Potassium 3.1(L) 3.5 - 5.2 mmol/L [facility] Chloride 96 96 - 106 mmol/L [facility] Bicarbonate (CO2) 26 20 - 29 mmol/L [facility] Calcium 9.3 8.6 - 10.2 mg/dL [facility] Total Protein 7.5 6.0 - 8.5 g/dL [facility] Albumin 4.5 3.8 - 4.8 g/dL [facility] Globulin 3.0 1.5 - 4.5 g/dL [facility] Total Bilirubin 0.4 0.0 - 1.2 mg/dL [facility] Alkaline Phosphatase 114 44 - 121 IU/L [facility] AST (SGOT) 21 0 - 40 IU/L [facility] ALT (SGPT) 28 0 - 44 IU/L [facility] Blood (Blood, Venous) 01/29/2024 10:09 AM EST 01/29/2024 us Bartolo Dumont MD LAB BLOOD ORDERABLES Final Res ult [facility] [address] [place] [address] from Last 3 Months Insurance [facility] Care Teams Spectrographer Relationship Specialty Start Date End Date Raul Robles MD [address] [place] [address] PCP - General Internal Medicine 10/01/22
--- OUTSIDE RECORDS SUMMARY | 2024-04-14 14:47 | XMS_ITS | Encounter Summary ---
Author Organization [facility] Address [address] [place] [address] Phone Care Team Providers Care Plug Paster Name Role Phone Raul Robles MD Primary Care Provider +1- [phone] Encounter Details Date Type Department Care Team (Late st Contact Info) Description 04/24/2023 Documentation Only [facility] [address] [place] [address] Judy Dunlap [address] [place] [phone] Social History Tobacco Use Types Packs/Day Years [...] Visit [facility] [address] [place] [address] Bartolo Dumont MD [address] [place] [address] [place] [address] documented as of this encounter Visit Diagnoses Not on filedocumented in this encounter Care Teams Plug Paster Relationship Specialty Start Date End Date Raul Robles MD [address] [place], [place] [phone] PCP - General Internal Medicine 10/01/22 documented as of this encounter
--- OUTSIDE RECORDS SUMMARY | 2024-04-14 14:47 | XMS_ITS | Encounter Summary ---
Author Organization [facility] Address [address] [place] [address] Phone Care Team Providers Care Dispatcher Bus And Trolley Name Role Phone Raul Robles MD Primary Care Provider +1- [phone] Encounter Details Date Type Department Care Team (Late Contact Info) Description 10/29/2022 Documentation Only [facility] Dr [address] HANKINS [address] [place] [phone] Fernando Balnco MD [address] [place] [address] [place] [address] Social History Tobacco Use Types [...] Visit [facility] [address] [place] [address] Bartolo Dumont MD [address] [place] [address] [place] [address] documented as of this encounter Visit Diagnoses Not on filedocumented in this encounter Care Teams Dispatcher Bus And Trolley Relationship Specialty Start Date End Date Raul Robles MD [address] [place] [address] PCP - General Internal Medicine 10/01/22 documented as of this encounter
--- OUTSIDE RECORDS SUMMARY | 2024-04-14 14:47 | XMS_ITS | Encounter Summary ---
Author Organization [facility] Address [address] [place] [address] Phone Care Team Providers Care Mixing Place Supervisor Name Role Phone Raul Robles MD Primary Care Provider +1- [phone] Encounter Details Date Type Department Care Team (Late Contact Info) Description 10/29/2022 Documentation Only [facility] [address] [place] [address] Bartolo Dumont MD [address] [place] [address] [place] [address] Social History Tobacco Use Types [...] Visit [facility] [address] [place] [address] Bartolo Dumont MD [address] [facility] [place] [address] documented as of this encounter Visit Diagnoses Not on filedocumented in this encounter Care Teams Mixing Place Supervisor Relationship Specialty Start Date End Date Raul Robles MD [address] [place] [address] [phone] PCP - General Internal Medicine 10/01/22 documented as of this encounter
--- OUTSIDE RECORDS SUMMARY | 2024-04-14 14:47 | XMS_ITS | Encounter Summary ---
Author Organization [facility] Address [address] [place] [address] Phone Care Team Providers Care Resource Analyst Name Role Phone Raul Robles MD Primary Care Provider +1- [phone] Encounter Details Date Type Department Care Team (Late Contact Info) Description 10/16/2022 Documentation Only [facility] [address] [place] [address] Bartolo Dumont MD [address] [place] [address] [place] [address] Social History Tobacco Use Types [...] Visit [facility] [address] [place] [address] Bartolo Dumont MD [address] [facility] [place] [address] documented as of this encounter Visit Diagnoses Not on filedocumented in this encounter Care Teams Resource Analyst Relationship Specialty Start Date End Date Raul Robles MD [address] [place] [address] [phone] PCP - General Internal Medicine 10/01/22 documented as of this encounter
--- OUTSIDE RECORDS SUMMARY | 2024-04-14 14:47 | XMS_ITS | Encounter Summary ---
Author Organization [facility] Address [address] [place] [address] Phone Care Team Providers Care Hvac Mechanical Engineer Name Role Phone Raul Robles MD Primary Care Provider +1- [phone] Encounter Details Date Type Department Care Team (Late Contact Info) Description 10/29/2022 Documentation Only [facility] [address] [place] [address] Bartolo Dumont MD [address] [place] [address] [place] [address] Social History Tobacco Use Types [...] Visit [facility] [address] [place] [address] Bartolo Dumont MD [address] [facility] [place] [address] documented as of this encounter Visit Diagnoses Not on filedocumented in this encounter Care Teams Hvac Mechanical Engineer Relationship Specialty Start Date End Date Raul Robles MD [address] [place] [address] [phone] PCP - General Internal Medicine 10/01/22 documented as of this encounter
--- OUTSIDE RECORDS SUMMARY | 2024-04-14 14:47 | XMS_ITS | Encounter Summary ---
Author Organization [facility] Address [address] [place] [address] Phone Care Team Providers Care Nutrition Services Aide Name Role Phone Raul Robles MD Primary Care Provider +1- [phone] Encounter Details Date Type Department Care Team (Late Contact Info) Description 10/29/2022 Documentation Only [facility] [address] [place] [address] Bartolo Dumont MD [address] [place] [address] [place] [address] Social History Tobacco Use Types [...] Visit [facility] [address] [place] [address] Bartolo Dumont MD [address] [facility] [place] [address] documented as of this encounter Visit Diagnoses Not on filedocumented in this encounter Care Teams Nutrition Services Aide Relationship Specialty Start Date End Date Raul Robles MD [address] [place] [address] [phone] PCP - General Internal Medicine 10/01/22 documented as of this encounter
--- OUTSIDE RECORDS SUMMARY | 2024-04-14 14:47 | XMS_ITS | Encounter Summary ---
Author Organization [facility] Address [address] [place] [address] Phone Care Team Providers Care Pilot Control Operator Helper Name Role Phone Raul Robles MD Primary Care Provider +1- [phone] Encounter Details Date Type Department Care Team (Late Contact Info) Description 10/29/2022 Documentation Only [facility] [address] [place] [address] Bartolo Dumont MD [address] [place] [address] [place] [address] Social History Tobacco Use Types [...] Visit [facility] [address] [place] [address] Bartolo Dumont MD [address] [facility] [place] [address] documented as of this encounter Visit Diagnoses Not on filedocumented in this encounter Care Teams Pilot Control Operator Helper Relationship Specialty Start Date End Date Raul Robles MD [address] [place] [address] [id number] PCP - General Internal Medicine 10/01/22 documented as of this encounter
== END 2024-04-14 14:25 | disposition home or self-care (01) ==
PROVIDERS: PCP Internal Medicine; Visit Provider Nurse Practitioner Family
DX: I25.10 Atherosclerotic heart disease of native coronary artery without angina pectoris (principal); I25.5 Ischemic cardiomyopathy; I10 Essential (primary) hypertension; E78.00 Pure hypercholesterolemia, unspecified; Z95.1 Presence of aortocoronary bypass graft
CPT/HCPCS: 93010; 93280; 99214

== ENCOUNTER → 2024-04-14 13:46 | Outpatient (BNVA) | payer OTHER, MEDICARE, SELFPAY ==
[2023-06-24 11:59] VITALS: BP 110/68; BP 112/76; BP 130/70; BMI 26.0
== END ==
PROVIDERS: PCP Internal Medicine; Visit Provider Nurse Practitioner Family
DX: I25.10 Atherosclerotic heart disease of native coronary artery without angina pectoris (principal); I25.5 Ischemic cardiomyopathy; I10 Essential (primary) hypertension; E78.00 Pure hypercholesterolemia, unspecified; Z45.018 Encounter for adjustment and management of other part of cardiac pacemaker; Z79.02 Long term (current) use of antithrombotics/antiplatelets; Z79.82 Long term (current) use of aspirin; Z79.899 Other long term (current) drug therapy; Z95.1 Presence of aortocoronary bypass graft
CPT/HCPCS: 93005; 93280

== ENCOUNTER → 2024-05-03 23:59 | Outpatient (BNV) | payer OTHER, MEDICARE, SELFPAY ==
[2023-06-24 11:59] VITALS: BP 110/68; BP 112/76; BP 130/70; BMI 26.0
--- NOTE | 2024-06-19 21:03 | MHC.OFFVIS ---
Intake Visit Reasons: Remote HF Device Check-Biotronik Allergies ramipril Allergy (Severe, Verified 06/16/24 11:05) angioedema rosuvastatin Adverse Reaction (Intermediate, Verified 06/16/24 11:05) recurrent choking sensation in throat when taking med PFSH Medical History Chronic kidney disease, stage III (moderate) Alcoholism Lichen simplex chronicus Coronary artery disease involving bypass graft of transplanted heart Diabetes mellitus Overweight (BMI 25.0-29.9) Dyschromia Esophageal stricture Coronary artery disease Gout Pure hypercholesterolemia Benign essential hypertension Surgical History S/P CABG x 4 (~04/10/22) History of percutaneous coronary intervention (~2008) History of coronary angioplasty (~1998) History of colonoscopy Varicose vein of leg Family History Father Medical history unknown Mother Diabetes Hypertension Social History Housing: House Alcohol intake: current Alcohol intake frequency: holidays/special occasions only Patient Tobacco Use Status: Former Tobacco user Years Smoked: 25 +/- e-Cigarette/Vaping Use: Never Used Second Hand Smoke Exposure: Yes service: No Current occupational status: retired Cognitive needs: No Hearing needs: No Vision needs: No Office Procedures Cardiac Device Check Cardiac Device Check Details: HF monitoring Stable thoracic impedance. [id number] Cardiac Device Interrogation, cardio physiologic monitor Procedure code (CPT) selection complete Assessment & Plan Assessment & Plan (1) Pacemaker: Code(s): Z95.0 - Presence of cardiac pacemaker Category: Medical Plan: Coding Level of Care Code Procedure Only Diagnoses Pacemaker Z95.0 CPT Codes Cardiac Device Check - Cardiac Device 15: [id number]-[id number] Cardiac Device Interrogation, cardio physiologic monitor ([id number])
== END ==
PROVIDERS: PCP Internal Medicine; Visit Provider Internal Medicine Cardiovascular Disease
DX: Z45.018 Encounter for adjustment and management of other part of cardiac pacemaker (principal)
CPT/HCPCS: 93297

== ENCOUNTER → 2024-05-17 23:59 | Outpatient (BNV) | payer OTHER, MEDICARE, SELFPAY ==
[2023-06-24 11:59] VITALS: BP 110/68; BP 112/76; BP 130/70; BMI 26.0
--- NOTE | 2024-05-31 12:53 | A.OFFVIS_ITS ---
Intake Visit Reasons: Remote HF Device Check-Biotronik Allergies ramipril Allergy (Severe, Verified 04/14/24 13:53) angioedema rosuvastatin Adverse Reaction (Intermediate, Verified 04/14/24 13:53) recurrent choking sensation in throat when taking med PFSH Medical History Chronic kidney disease, stage III (moderate) Alcoholism Lichen simplex chronicus Coronary artery disease involving bypass graft of transplanted heart Diabetes mellitus Overweight (BMI 25.0-29.9) Dyschromia Esophageal stricture Coronary artery disease Gout Pure hypercholesterolemia Benign essential hypertension Surgical History S/P CABG x 4 (~04/10/22) History of percutaneous coronary intervention (~2008) History of coronary angioplasty (~1998) History of colonoscopy Varicose vein of leg Family History Father Medical history unknown Mother Diabetes Hypertension Social History Housing: House Alcohol intake: current Alcohol intake frequency: holidays/special occasions only Patient Tobacco Use Status: Former Tobacco user Years Smoked: 25 +/- e-Cigarette/Vaping Use: Never Used Second Hand Smoke Exposure: Yes service: No Current occupational status: retired Cognitive needs: No Hearing needs: No Vision needs: No Office Procedures Cardiac Device Check Cardiac Device Check Details: Biotronik permanent pacemaker. Battery life 85%. Mode DDD. A paced 0%. RV paced 95%. No new alerts. [id number] Cardiac Device Interrogation, pacemaker Procedure code (CPT) selection complete Assessment & Plan Assessment & Plan (1) Pacemaker: Code(s): Z95.0 - Presence of cardiac pacemaker Category: Medical Plan Coding Level of Care Code Procedure Only Diagnoses Pacemaker Z95.0 CPT Codes Cardiac Device Check - Cardiac Device 12: [id number] Cardiac Device Interrogation, pacemaker ([id number])
== END ==
PROVIDERS: PCP Internal Medicine; Visit Provider Internal Medicine Cardiovascular Disease
DX: Z45.018 Encounter for adjustment and management of other part of cardiac pacemaker (principal)
CPT/HCPCS: 93294

== ENCOUNTER 2024-06-02 08:38 | Outpatient (REF) | payer OTHER, MEDICARE, SELFPAY ==
[2023-06-24 11:59] VITALS: BP 110/68; BP 112/76; BP 130/70; BMI 26.0
[2024-06-02 08:55] LABS: MANUAL DIFF FLAG NO
--- OUTSIDE RECORDS SUMMARY | 2024-06-02 08:56 | XMS_ITS | Encounter Summary ---
Author Organization [facility] Address [address] [place] [address] Phone Care Team Providers Care Visual Coordinator Name Role Phone Raul Robles MD Primary Care Provider +1- [phone] Encounter Details Date Type Department Care Team (Late st Contact Info) Description 04/24/2023 Documentation Only [facility] [address] [place] [address] Judy Dunlap [address] [place] [phone] Social History Tobacco Use Types Packs/Day Years [...] Visit [facility] [address] [place] [address] Bartolo Dumont MD [address] [place] [address] [place] [address] documented as of this encounter Visit Diagnoses Not on filedocumented in this encounter Care Teams Visual Coordinator Relationship Specialty Start Date End Date Raul Robles MD [address] [place], [place] [phone] PCP - General Internal Medicine 10/01/22 documented as of this encounter
--- OUTSIDE RECORDS SUMMARY | 2024-06-02 08:56 | XMS_ITS | Encounter Summary ---
Author Organization [facility] Address [address] [place] [address] Phone Care Team Providers Care Transportation Program Director Name Role Phone Raul Robles MD Primary Care Provider +1- [phone] Encounter Details Date Type Department Care Team (Late Contact Info) Description 10/29/2022 Documentation Only [facility] [address] [place] [address] Bartolo Dumont MD [address] [place] [address] [place] [address] Social History Tobacco Use Types [...] Visit [facility] [address] [place] [address] Bartolo Dumont MD [address] [facility] [place] [address] documented as of this encounter Visit Diagnoses Not on filedocumented in this encounter Care Teams Transportation Program Director Relationship Specialty Start Date End Date Raul Robles MD [address] [place], [place] [phone] PCP - General Internal Medicine 10/01/22 documented as of this encounter
--- OUTSIDE RECORDS SUMMARY | 2024-06-02 08:56 | XMS_ITS | Encounter Summary ---
Author Organization [facility] Address [address] [place] [address] Phone Care Team Providers Care Product Design Manager Name Role Phone Raul Robles MD Primary Care Provider +1- [phone] Encounter Details Date Type Department Care Team (Late Contact Info) Description 10/29/2022 Documentation Only [facility] [address] [place] [address] Bartolo Dumont MD [address] [place] [address] Dr[place] [address] Social History Tobacco Use Types [...] Visit [facility] [address] [place] [address] Bartolo Dumont MD [address] [facility] [place] [address] documented as of this encounter Visit Diagnoses Not on filedocumented in this encounter Care Teams Product Design Manager Relationship Specialty Start Date End Date Raul Robles MD [address] [place], [place] [phone] PCP - General Internal Medicine 10/01/22 documented as of this encounter
--- OUTSIDE RECORDS SUMMARY | 2024-06-02 08:56 | XMS_ITS | Encounter Summary ---
Author Organization [facility] Address [address] [place] [address] Phone Care Team Providers Care Personnel Administrator Name Role Phone Raul Robles MD Primary Care Provider +1- [phone] Encounter Details Date Type Department Care Team (Late Contact Info) Description 10/29/2022 Documentation Only [facility] [address] [place] [address] Bartolo Dumont MD [address] [place] [address] Dr. Makay[place] [address] Social History Tobacco Use Types [...] Visit [facility] [address] [place] [address] Bartolo Dumont MD [address] [facility] [place] Makay[place] [address] documented as of this encounter Visit Diagnoses Not on filedocumented in this encounter Care Teams Personnel Administrator Relationship Specialty Start Date End Date Raul Robles MD [address] [place], [place] [phone] PCP - General Internal Medicine 10/01/22 documented as of this encounter
--- OUTSIDE RECORDS SUMMARY | 2024-06-02 08:56 | XMS_ITS | Encounter Summary ---
Author Organization [facility] Address [address] [place] [address] Phone Care Team Providers Care Medicinal Chemist Name Role Phone Raul Robles MD Primary Care Provider +1- [phone] Encounter Details Date Type Department Care Team (Late Contact Info) Description 10/29/2022 Documentation Only [facility] Dr Neil [address] HANKINS [address] [place] [phone] Fernando Blanco MD [address] [place] [address] [place] [address] Social History Tobacco Use Types [...] Visit [facility] [address] [place] [address] Bartolo Dumont MD [address] [place] [address] [place] [address] documented as of this encounter Visit Diagnoses Not on filedocumented in this encounter Care Teams Medicinal Chemist Relationship Specialty Start Date End Date Raul Robles MD [address] [place] [address] PCP - General Internal Medicine 10/01/22 documented as of this encounter
--- OUTSIDE RECORDS SUMMARY | 2024-06-02 08:56 | XMS_ITS | Encounter Summary ---
Author Organization [facility] Address [address] [place] [address] Phone Care Team Providers Care Transfer Pumper Name Role Phone Raul Robles MD Primary Care Provider +1- [phone] Encounter Details Date Type Department Care Team (Late Contact Info) Description 10/29/2022 Documentation Only [facility] [address] [place] [address] Bartolo Dumont MD [address] [place] [address] [place] [address] Social History Tobacco Use Types [...] Visit [facility] [address] [place] [address] Bartolo Dumont MD [address] [facility] [place] [address] documented as of this encounter Visit Diagnoses Not on filedocumented in this encounter Care Teams Transfer Pumper Relationship Specialty Start Date End Date Raul Robles MD [address] [place], [place] [phone] PCP - General Internal Medicine 10/01/22 documented as of this encounter
--- OUTSIDE RECORDS SUMMARY | 2024-06-02 08:56 | XMS_ITS | Encounter Summary ---
Author Organization [facility] Address [address] [place] [address] Phone Care Team Providers Care Conche Loader And Unloader Name Role Phone Raul Robles MD Primary Care Provider +1- [phone] Encounter Details Date Type Department Care Team (Late Contact Info) Description 10/16/2022 Documentation Only [facility] [address] [place] [address] Bartolo Dumont MD [address] [place] [address] [place] [address] Social History Tobacco Use Types [...] [facility] [address] [place] [address] Bartolo Dumont MD [address] [facility] [place] [address] documented as of this encounter Visit Diagnoses Not on filedocumented in this encounter Care Teams Conche Loader And Unloader Relationship Specialty Start Date End Date Raul Robles MD [address] [place], [place] [phone] PCP - General Internal Medicine 10/01/22 documented as of this encounter
--- OUTSIDE RECORDS SUMMARY | 2024-06-02 08:56 | XMS_ITS | Encounter Summary ---
Author Organization [facility] Address [address] [place] [address] Phone Care Team Providers Care Mold Cutting Machine Operator Name Role Phone Raul Robles MD Primary Care Provider +1- [phone] Encounter Details Date Type Department Care Team (Late Contact Info) Description 10/29/2022 Documentation Only [facility] [address] [place] [address] Bartolo Dumont MD [address] [place] [address] [place] [address] Social History Tobacco Use Types [...] Visit [facility] [address] [place] [address] Bartolo Dumont MD [address] [facility] [place] [address] documented as of this encounter Visit Diagnoses Not on filedocumented in this encounter Care Teams Mold Cutting Machine Operator Relationship Specialty Start Date End Date Raul Robles MD [address] [place], [place] [phone] PCP - General Internal Medicine 10/01/22 documented as of this encounter
--- OUTSIDE RECORDS SUMMARY | 2024-06-02 08:56 | XMS_ITS | Clinical Summary ---
Author Organization [facility] Address [address] [place] [address] [place] [address] Phone Care Team Providers Care Mud Tank Operator Name Role Phone Raul Robles MD Primary Care Provider +1- [phone] Allergies Active Allergy Reactions Criticality Noted Date [...] Acute nontraumatic kidney injury 10/29/2022 Hyperkalemia 10/29/2022 Immunizations Immunization Administration Dates Next Due Pfizer SARS-COV-2 03/19/2021,07/11/2020,06/21/19 [...] Office Visit [facility] [address] [place] [phone] Bartolo Dumont MD [address] [place] [address] [place] [address] Health Maintenance Due Date Last Done Comments Pneumococcal Vaccine: 50+ Ye ars (1 of 2 - PCV) 01/16/1956 Colorectal Cancer Screening: Annual FOBT 01/16/2001 Colorectal Cancer Screening: Colonoscopy 01/16/2001 Colorectal Cancer Screening: Sigmoidoscopy 01/16/2001 Diabetes: Hemoglobin A1C 10/06/2022 Diabetes: Ophthalmology Exam 10/06/2022 Diabetes: Pedal Pulse Checked 10/06/2022 Diabetes: Sensory Foot Exam 10/06/2022 Diabetes: Visual Foot Exam 10/06/2022 Influenza Vaccine (Season Ended) 2024 Hepatitis B Vaccine Aged Out No longe r eligible based on patient's age to complete this topic Insurance [facility] Care Teams Mud Tank Operator Relationship Specialty Start Date End Date Raul Robles MD [address] [place] [address] [address] [place], [place] [phone] PCP - General Internal Medicine 10/01/22
[2024-06-02 09:16] LABS: Basophils Percent Auto 0.4 % (0-2); Eosinophils Absolute Auto 0.4 X10*3/uL (0.0-0.4); Hemoglobin 13.1 g/dl (14.0-18.0); Imm Gran Abs Auto 0.04 X10*3/uL (0.00-0.03); Imm Gran Pct Auto 0.6 % (0.0-0.4); Lymphocytes Absolute Auto 1.9 X10*3/uL (1.2-4.9); Lymphocytes Percent Auto 26.4 % (20-40); Mean Corpuscular HGB Conc 33.6 g/dl (31.0-36.0); Mean Corpuscular Hemoglobin 27.9 pg (27.0-33.0); Mean Platelet Volume 11.7 fL (9.4-12.4); Monocytes Absolute Auto 0.8 X10*3/uL (0.1-1.2); Monocytes Percent Auto 10.7 % (2-11); Neutrophils Percent Auto 55.9 % (45-73); Platelet Count 249 X10*3/uL (160-400); Red Cell Distribution Width 15.2 % (11.0-16.0); White Blood Count 7.1 X10*3/uL (4.8-10.8)
[2024-06-02 09:22] LABS: Estimated Average Glucose 232 mg/dL; Hemoglobin A1c % 9.7 % (<6.0); Total Hemoglobin (HGBA1C) 3532.6125 umol/L
[2024-06-02 09:32] LABS: Appearance Urine Clear; Color Urine Yellow; Glucose Urine UA Negative (Negative); Leukocyte Esterase Urine Trace (Negative); Nitrite Urine Negative (Negative); PH 5.5 (5.0-9.0); UMIC TRIGGER UACC YES; Urine Blood Negative (Negative); Urine Ketones Trace mg/dL (Negative); Urine Protein Negative (Neg-Trace)
[2024-06-02 09:37] LABS: Bacteria Urine None Seen (None Seen); Hyaline Casts Urine 0-2 /LPF (0-2); RBC Urine 0-2 /HPF (0-2); Squamous Epithelial Cell Urine 0-2 /HPF (0-2); WBC Urine 0-5 /HPF (0-5)
[2024-06-02 09:56] LABS: Alanine Aminotransferase 53 U/L (0-40); Albumin Level 4.2 g/dL (3.5-5.0); Alkaline Phosphatase 80 U/L (39-117); Anion Gap 12 (12-20); Aspartate Amino Transferase 34 U/L (5-37); Blood Urea Nitrogen 35 mg/dL (9-16); Calcium 9.3 mg/dL (8.4-10.2); Carbon Dioxide 30 mmol/L (22-29); Chloride 105 mmol/L (96-108); Cholesterol 112 mg/dL (<200); Estimated Glomerular Filt Rate 36; Glucose Fasting 135 mg/dL (60-99); HDL Cholesterol 32 mg/dL (>40); LDL Cholesterol Calculated 55 mg/dL (<100); Potassium 3.2 mmol/L (3.3-5.1); Sodium 144 mmol/L (135-145); Triglycerides 126 mg/dL (<150); Uric Acid 10.7 mg/dL (3.4-7.0)
[2024-06-02 10:18] LABS: TSH reflex Free T4 2.41 uIU/mL (0.32-4.0); Vitamin D 25-OH Total 43.4 ng/mL (>30)
[2024-06-02 10:22] LABS: Folate 9.1 ng/mL (> or = 4.0); Vitamin B12 396 pg/mL (200-900)
[2024-06-02 10:47] LABS: Creatinine Urine 171.23 mg/dL
== END 2024-06-02 08:39 | disposition home or self-care (01) ==
LOC: HO.LAB 08:38
PROVIDERS: PCP Internal Medicine; Visit Provider Internal Medicine
DX: D64.9 Anemia, unspecified (principal); E78.00 Pure hypercholesterolemia, unspecified; E11.9 Type 2 diabetes mellitus without complications; E55.9 Vitamin D deficiency, unspecified; M10.9 Gout, unspecified; E53.8 Deficiency of other specified B group vitamins
CPT/HCPCS: 36415; 80053; 80061; 81001; 82043; 82306; 82570; 82607; 82746; 83036; 84443; 84550; 85025

== ENCOUNTER → 2024-06-07 23:59 | Outpatient (BNV) | payer OTHER, MEDICARE, SELFPAY ==
[2023-06-24 11:59] VITALS: BP 110/68; BP 112/76; BP 130/70; BMI 26.0
--- NOTE | 2024-06-19 21:37 | MHC.OFFVIS ---
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 Diabetes mellitus Overweight (BMI 25.0-29.9) Dyschromia Esophageal stricture Coronary artery disease Gout Pure hypercholesterolemia Benign essential hypertension Surgical History S/P CABG x 4 (~04/10/22) History of percutaneous coronary intervention (~2008) History of coronary angioplasty (~1998) History of colonoscopy Varicose vein of leg Family History Father Medical history unknown Mother Diabetes Hypertension Social History Housing: House Alcohol intake: current Alcohol intake frequency: holidays/special occasions only Patient Tobacco Use Status: Former Tobacco user Years Smoked: 25 +/- e-Cigarette/Vaping Use: Never Used Second Hand Smoke Exposure: Yes service: No Current occupational status: retired Cognitive needs: No Hearing needs: No Vision needs: No Office Procedures Cardiac Device Check Cardiac Device Check Details: Dual chamber PPM Good battery life Stable thoracic impedance. [id number] Cardiac Device Interrogation, cardio physiologic monitor Procedure code (CPT) selection complete Assessment & Plan Assessment & Plan (1) Right ventricular dysfunction: Code(s): I51.9 - Heart disease, unspecified Category: Medical Plan: Coding Level of Care Code Procedure Only Diagnoses Right ventricular dysfunction I51.9 CPT Codes Cardiac Device Check - Cardiac Device 15: 42969-Mkgxld Cardiac Device Interrogation, cardio physiologic monitor ([id number])
== END ==
PROVIDERS: PCP Internal Medicine; Visit Provider Internal Medicine Cardiovascular Disease
DX: I50.810 Right heart failure, unspecified (principal); Z95.0 Presence of cardiac pacemaker
CPT/HCPCS: 93297

== ENCOUNTER 2024-06-08 09:10 | Outpatient (AMB) | payer OTHER, MEDICARE, SELFPAY ==
[2023-06-24 11:59] VITALS: BP 110/68; BP 112/76; BP 130/70; BMI 26.0
--- NOTE | 2024-06-08 09:19 | MHC.OFFVIS ---
Vital Signs 06/08/24 09:21 Height 5 ft 4 in Weight 161 lb 6.054 oz BMI 27.7 BP 112/62 Blood Pressure Location Lt brachial Position Sitting Pulse 66 Pulse Source Pulse Oximeter Intake Visit Reasons: 4 mth f/up Intake Note: 4 mth f/up Arc Welder Apprentice Required: No Accompanied by: Spouse Allergies ramipril Allergy (Severe, Verified 04/14/24 13:53) angioedema rosuvastatin Adverse Reaction (Intermediate, Verified 04/14/24 13:53) recurrent choking sensation in throat when taking med Medication List - Last Reconciled 06/08/24 by Lakhwinder Booker MD amlodipine 10 mg PO DAILY aspirin 81 mg PO DAILY atorvastatin 80 mg PO DAILY 90 days betamethasone dipropionate 0.05% 1 appl topical BID PRN blood sugar diagnostic (FreeStyle Lite Strips) As directed 3 times per day carvedilol 3.125 mg PO BID 90 days clopidogrel 75 mg PO DAILY 90 days colchicine 0.6 mg PO DAILY 90 days doxepin 10 mg PO BEDTIME 90 days hydrochlorothiazide 25 mg PO DAILY lancets (FreeStyle Lancets) As directed 3 times per day metformin ER 500 mg PO BID metformin ER 500 mg PO BID 90 days pantoprazole 40 mg PO DAILY 90 days pen needle, diabetic (Comfort EZ Pen [place]) As directed HPI Comments Details: 74-year-old gentleman here for follow-up. He was previously being monitored for hypertension and stable coronary disease. It appears he got admitted to [facility] with NSTEMI and was taken for cardiac catheterization which revealed multivessel disease. He had hodl-de-xttgkdlf LV as well as RV dysfunction and was taken for coronary artery bypass surgery. He was on pressors afterwards but recovered fortunately. He has been doing well since then. He underwent cardiac rehabilitation and has completed that at this stage. Post bypass he had echocardiography performed which showed fbbs-pp-krtekist LV dysfunction with EF of 35-40% with inferior wall akinesis. He also has severely decreased right ventricular function. 08/27/22: He returns for follow-up. He is saying he has completed cardiac rehabilitation at this point and is walking on his own without any chest discomfort shortness of breath. He has hoarseness of his voice and he is saying this has been present since the bypass surgery. He has not had any breathing issues or stridor. He is taking multiple medications currently. His blood pressure control is good. His family accompanied him and they had question about 1 of his medication but did not know which medication it is. Overall he is feeling better. I have advised him that he should be exercising regularly. 06/24/23: He returns for follow-up. He is denying any symptoms on follow-up. His blood pressure is elevated. Manual blood pressure is 150/100. Previously was taking carvedilol 6.25 mg and hydrochlorothiazide 25 mg daily. He has currently not on hydrochlorothiazide anymore. Previously had angioedema with ramipril so NIKHIL inhibitor/ARB can not be used. He has dqkj-sk-xjvuzzqs RV dysfunction on repeat echocardiography but his LV ejection fraction is normal 55-60% with basal inferior akinesis. The pointed out that Therese has been drinking more alcohol. He is saying that he drinks vodka shots occasionally and does not drink heavily. 09/30/2023: He returns for follow-up. Blood pressure is much better on follow-up. Denying any chest discomfort shortness of breath. Does not appear to be very active and only walks inside his house. I have advised him that he should be exercising regularly. It appears during his admission he also had a pacemaker placed which I was not aware off. He has been going to [facility] for device check and monitoring. 02/10/2020: He returns for follow-up. He has been doing well. No chest pain or shortness of breath. Blood pressure is well controlled. 06/08/2024: He is here for follow-up. He has been doing well. He is saying he is trying to do regular walks. Definitely looks better than before. Reviewing his labs recently he has potassium is 3.2. His LDL is 55 which is perfect. Overall he has been feeling better. [facility] Medical History Chronic kidney disease, stage III (moderate) Alcoholism Lichen simplex chronicus Coronary artery disease involving bypass graft of transplanted heart Diabetes mellitus Overweight (BMI 25.0-29.9) Dyschromia Esophageal stricture Coronary artery disease Gout Pure hypercholesterolemia Benign essential hypertension Surgical History S/P CABG x 4 (~04/10/22) History of percutaneous coronary intervention (~2008) History of coronary angioplasty (~1998) History of colonoscopy Varicose vein of leg Family History Father Medical history unknown Mother Diabetes Hypertension Social History Housing: House Alcohol intake: current Alcohol intake frequency: holidays/special occasions only Patient Tobacco Use Status: Former Tobacco user Years Smoked: 25 +/- e-Cigarette/Vaping Use: Never Used Second Hand Smoke Exposure: Yes service: No Current occupational status: retired Cognitive needs: No Hearing needs: No Vision needs: No Review of Systems Const Denies chills, Denies fatigue, Denies fever(s), Denies frequent falls, Denies weakness, Denies weight gain and Denies weight loss ENT Denies dizziness Card Denies chest pain, Denies leg edema, Denies lightheadedness, Denies palpitations, Denies dyspnea and Denies dyspnea on exertion Resp Denies cough, Denies dyspnea and Denies dyspnea on exertion GI Denies hematochezia Musc Denies abnormal gait, Denies muscle weakness, Denies numbness, Denies radiating pain into limb and Denies tingling Neuro Denies abnormal gait, Denies dizziness, Denies frequent falls, Denies numbness, Denies tingling and Denies weakness Endo Denies fatigue and Denies palpitations Physical Exam Vital Signs: Last Vital Signs Pulse 66 06/08/24 09:21 BP 112/62 06/08/24 09:21 BMI result Body Mass Index 27.7 GENERAL APPEARANCE: in no acute distress, pleasant. NECK: no carotid bruit, no jugular venous distention. SKIN: Midline sternotomy scar. HEART: no murmurs, regular rate and rhythm. LUNGS: clear to auscultation bilaterally. ABDOMEN: soft, nontender. EXTREMITIES: no edema. PERIPHERAL PULSES: equal. NEUROLOGIC: No gross deficits, AAO X 3 Assessment & Plan Assessment & Plan (1) S/P CABG (coronary artery bypass graft): Code(s): Z95.1 - Presence of aortocoronary bypass graft Category: Surgical (2) Ischemic cardiomyopathy: Code(s): I25.5 - Ischemic cardiomyopathy Category: Medical (3) Pacemaker: Code(s): Z95.0 - Presence of cardiac pacemaker Category: Medical Plan Pleasant 74-year-old gentleman who is here for follow-up. He has known history of coronary artery disease and underwent coronary artery bypass surgery in the past. In 04/14/2023 we repeated echocardiography which showed EF of 55-60% with basal inferior akinesis. Normal right ventricular cavity size with lupl-mo-rfmmdlrgga decreased right ventricular systolic function. Clinically he has been stable and does not have any significant volume overload. He does not have any signs/symptoms of RV dysfunction/failure. He is hypokalemic and I think this is related to hydrochlorothiazide use. I have advised him to cut the hydrochlorothiazide to half pill start (12.5 mg). Well controlled blood pressure currently. I have advised him to become more active as weather gets warmer. Thank you for allowing me to participate in the care of your patient. Please feel free to contact me if you have any questions. Medications: Changed From hydrochlorothiazide 25 mg PO DAILY 60 tabs 3RF I10 - Essential (primary) hypertension To hydrochlorothiazide 12.5 mg (1/2 x 25 mg) PO DAILY 60 tabs 3RF I10 - Essential (primary) hypertension Coding Level of Care Code Est Pt Level 4 (89919) Diagnoses S/P CABG (coronary artery bypass graft) Z95.1 Ischemic cardiomyopathy I25.5 Pacemaker Z95.0
[2024-06-08 09:21] VITALS: BP 112/62; PULSE 66; BMI 27.7
--- OUTSIDE RECORDS SUMMARY | 2024-06-08 09:55 | XMS_ITS | Clinical Summary ---
Author Organization [facility] [place], Address [address] [place] [address] [place] [address] Phone Care Team Providers Care Stripping And Booking Machine Operator Name Role Phone Raul Robles MD Primary Care Provider +1- [phone] Allergies Active Allergy Reactions Criticality Noted Date [...] Encounters Date Type Department Care Team Description 06/03/2024 Documentation Only [facility] [address] [place] [address] Teodora Lozada MA from Last 3 Months Immunizations Immunization Administration Dates Next Due Pfizer [...] Visit [facility] [address] [place] [address] Bartolo Dumont MD [address] [place] [address] [place] [phone] Health Maintenance Due Date Last Done Comments Pneumococcal Vaccine: 50+ Ye ars (1 of 2 - PCV) 01/16/1971 Colorectal Cancer Screening: Annual FOBT 01/16/2001 Colorectal Cancer Screening: Colonoscopy 01/16/2001 Colorectal Cancer Screening: Sigmoidoscopy 01/16/2001 Diabetes: Hemoglobin A1C 10/06/2022 Diabetes: Ophthalmology Exam 10/06/2022 Diabetes: Pedal Pulse Checked 10/06/2022 Diabetes: Sensory Foot Exam 10/06/2022 Diabetes: Visual Foot Exam 10/06/2022 Influenza Vaccine (Season Ended) 2024 Hepatitis B Vaccine Aged Out No longe r eligible based on patient's age to complete this topic Insurance [facility] Care Teams Stripping And Booking Machine Operator Relationship Specialty Start Date End Date Raul Robles MD [address] [place] [address] [address] [place] [address] PCP - General Internal Medicine 10/01/22
--- OUTSIDE RECORDS SUMMARY | 2024-06-08 09:55 | XMS_ITS | Encounter Summary ---
Author Organization [facility] Address [address] [place] [address] Phone Care Team Providers Care Fine Dining Server Name Role Phone Raul Robles MD Primary Care Provider +1- [phone] Encounter Details Date Type Department Care Team (Late Contact Info) Description 10/29/2022 Documentation Only [facility] [address] [place] [place] [address] Bartolo Dumont MD [address] [place] [address] [place] [address] Social History Tobacco Use Types [...] Visit [facility] [address] [place] [address] Bartolo Dumont MD [address] [facility] [place] [address] documented as of this encounter Visit Diagnoses Not on filedocumented in this encounter Care Teams Fine Dining Server Relationship Specialty Start Date End Date Raul Robles MD [address] [place], [place] [phone] PCP - General Internal Medicine 10/01/22 documented as of this encounter
--- OUTSIDE RECORDS SUMMARY | 2024-06-08 09:55 | XMS_ITS | Encounter Summary ---
Author Organization [facility] Address [address] [place] [address] Phone Care Team Providers Care Doubler Helper Name Role Phone Raul Robles MD Primary Care Provider +1- [phone] Encounter Details Date Type Department Care Team (Late st Contact Info) Description 06/03/2024 Documentation Only [facility] [address] [place] [address] Teodora Lozada [place] [address] [place] [phone] Social History Tobacco Use Types Packs/Day Years [...] [facility] [address] [place] [address] Bartolo Dumont MD [address] [place] [address] [place] [address] documented as of this encounter Visit Diagnoses Not on filedocumented in this encounter Care Teams Doubler Helper Relationship Specialty Start Date End Date Raul Robles MD [address] [place], [place] [phone] PCP - General Internal Medicine 10/01/22 documented as of this encounter
--- OUTSIDE RECORDS SUMMARY | 2024-06-08 09:55 | XMS_ITS | Encounter Summary ---
Author Organization [facility] Address [address] [place] [address] Phone Care Team Providers Care Quality Assurance Supervisor Name Role Phone Raul Robles MD Primary Care Provider +1- [phone] Encounter Details Date Type Department Care Team (Late Contact Info) Description 10/16/2022 Documentation Only [facility] [address] [place] [address] Bartolo Dumont MD [address] [place] [address] [place] [address] Social History Tobacco Use Types [...] [facility] [address] [place] [address] Bartolo Dumont MD [address] [facility] [place] [address] documented as of this encounter Visit Diagnoses Not on filedocumented in this encounter Care Teams Quality Assurance Supervisor Relationship Specialty Start Date End Date Raul Robles MD [address] [place], [place] [phone] PCP - General Internal Medicine 10/01/22 documented as of this encounter
--- OUTSIDE RECORDS SUMMARY | 2024-06-08 09:55 | XMS_ITS | Encounter Summary ---
Author Organization [facility] Address [address] [place] [address] Phone Care Team Providers Care Manager Privacy Name Role Phone Raul Robles MD Primary Care Provider +1- [phone] Encounter Details Date Type Department Care Team (Late Contact Info) Description 10/29/2022 Documentation Only [facility] Dr [address] HANKINS [address] [place] [phone] Fernando Blanco MD [address] [place] [address] [place] [address] Social History Tobacco Use Types [...] Visit [facility] [address] [place] [address] Bartolo Dumont MD [address] [place] [address] [place] [address] documented as of this encounter Visit Diagnoses Not on filedocumented in this encounter Care Teams Manager Privacy Relationship Specialty Start Date End Date Raul Robles MD [address] [place] [address] PCP - General Internal Medicine 10/01/22 documented as of this encounter
--- OUTSIDE RECORDS SUMMARY | 2024-06-08 09:55 | XMS_ITS | Encounter Summary ---
Author Organization [facility] Address [address] [place] [address] Phone Care Team Providers Care Roguer Name Role Phone Raul Robles MD Primary Care Provider +1- [phone] Encounter Details Date Type Department Care Team (Late st Contact Info) Description 04/24/2023 Documentation Only [facility] [address] [place] [address] Judy Dunlap [address] [place] [phone] Social History Tobacco Use Types Packs/Day Years [...] [facility] [address] [place] [address] Bartolo Dumont MD [address] [place] [address] [place] [address] documented as of this encounter Visit Diagnoses Not on filedocumented in this encounter Care Teams Roguer Relationship Specialty Start Date End Date Raul Robles MD [address] [place], [place] [phone] PCP - General Internal Medicine 10/01/22 documented as of this encounter
--- OUTSIDE RECORDS SUMMARY | 2024-06-08 09:55 | XMS_ITS | Encounter Summary ---
Author Organization [facility] Address [address] [place] [address] Phone Care Team Providers Care Gear Cutting Machine Operator Name Role Phone Raul Robles MD Primary Care Provider +1- [phone] Encounter Details Date Type Department Care Team (Late Contact Info) Description 10/29/2022 Documentation Only [facility] [address] [place] [address] Bartolo Dumont MD [address] [place] [address] [place] [address] Social History Tobacco Use Types [...] Visit [facility] [address] [place] [address] Bartolo Dumont MD [address] [facility] [place] [address] documented as of this encounter Visit Diagnoses Not on filedocumented in this encounter Care Teams Gear Cutting Machine Operator Relationship Specialty Start Date End Date Raul Robles MD [address] [place], [place] [phone] PCP - General Internal Medicine 10/01/22 documented as of this encounter
--- OUTSIDE RECORDS SUMMARY | 2024-06-08 09:55 | XMS_ITS | Encounter Summary ---
Author Organization [facility] Address [address] [place] [address] Phone Care Team Providers Care Travel Freight And Passenger Agent Name Role Phone Raul Robles MD Primary Care Provider +1- [phone] Encounter Details Date Type Department Care Team (Late Contact Info) Description 10/29/2022 Documentation Only [facility] [address] [place] [address] Bartolo Dumont MD [address] [place] [address] [place] [address] Social History Tobacco Use Types [...] Visit [facility] [address] [place] [address] Bartolo Dumont MD [address] [facility] [place] [address] documented as of this encounter Visit Diagnoses Not on filedocumented in this encounter Care Teams Travel Freight And Passenger Agent Relationship Specialty Start Date End Date Raul Robles MD [address] [place], [place] [phone] PCP - General Internal Medicine 10/01/22 documented as of this encounter
--- OUTSIDE RECORDS SUMMARY | 2024-06-08 09:55 | XMS_ITS | Encounter Summary ---
Author Organization [facility] Address [address] [place] [address] Phone Care Team Providers Care Loader Name Role Phone Raul Robles MD Primary Care Provider +1- [phone] Encounter Details Date Type Department Care Team (Late Contact Info) Description 10/29/2022 Documentation Only [facility] [address] [place] [address] Bartolo Dumont MD [address] [place] [address] [place] [address] Social History Tobacco Use Types [...] Visit [facility] [address] [place] [address] Bartolo Dumont MD [address] [facility] [place] [address] documented as of this encounter Visit Diagnoses Not on filedocumented in this encounter Care Teams Loader Relationship Specialty Start Date End Date Raul Robles MD [address] [place], [place] [phone] PCP - General Internal Medicine 10/01/22 documented as of this encounter
--- OUTSIDE RECORDS SUMMARY | 2024-06-08 09:55 | XMS_ITS | Encounter Summary ---
Author Organization [facility] Address [address] [place] [address] Phone Care Team Providers Care Ballast Regulator Operator Name Role Phone Raul Robles MD Primary Care Provider +1- [phone] Encounter Details Date Type Department Care Team (Late Contact Info) Description 10/29/2022 Documentation Only [facility] [address] [place] [address] Bartolo Dumont MD [address] [place] [address] [place] [address] Social History Tobacco Use Types [...] [facility] [address] [place] [place] [address] Bartolo Dumont MD [address] [facility] [place] [address] documented as of this encounter Visit Diagnoses Not on filedocumented in this encounter Care Teams Ballast Regulator Operator Relationship Specialty Start Date End Date Raul Robles MD [address] [place], [place] [phone] PCP - General Internal Medicine 10/01/22 documented as of this encounter
== END 2024-06-08 09:45 | disposition home or self-care (01) ==
PROVIDERS: PCP Internal Medicine; Visit Provider Internal Medicine Cardiovascular Disease
DX: Z95.1 Presence of aortocoronary bypass graft (principal); I25.5 Ischemic cardiomyopathy; Z95.0 Presence of cardiac pacemaker
CPT/HCPCS: 99214

== ENCOUNTER 2024-06-16 10:05 | Outpatient (AMB) | payer OTHER, MEDICARE, SELFPAY ==
[2023-06-24 11:59] VITALS: BP 110/68; BP 112/76; BP 130/70; BMI 26.0
--- NOTE | 2024-06-16 10:36 | MHC.PC.OV ---
Vital Signs 06/16/24 10:37 Height 5 ft 4 in Weight 160 lb 4 oz BMI 27.5 BP 112/64 Blood Pressure Location Lt brachial Position Sitting Pulse 76 Pulse Source Pulse Oximeter Pulse Oximetry (%) 98 Oxygen Delivery Method Room Air Intake Visit Reasons: DM, CAD, hyperlipidemia - see comments Oil Paint Shader Required: No Accompanied by: Self / Same As Patient Allergies ramipril Allergy (Severe, Verified 06/16/24 11:05) angioedema rosuvastatin Adverse Reaction (Intermediate, Verified 06/16/24 11:05) recurrent choking sensation in throat when taking med Medication List - Last Reconciled 06/16/24 by Raul Robles MD amlodipine 10 mg PO DAILY aspirin 81 mg PO DAILY atorvastatin 80 mg PO DAILY 90 days betamethasone dipropionate 0.05% 1 appl topical BID PRN blood sugar diagnostic (FreeStyle Lite Strips) As directed 3 times per day carvedilol 3.125 mg PO BID 90 days clopidogrel 75 mg PO DAILY 90 days colchicine 0.6 mg PO DAILY 90 days doxepin 10 mg PO BEDTIME 90 days hydrochlorothiazide 12.5 mg (1/2 x 25 mg) PO DAILY lancets (FreeStyle Lancets) As directed 3 times per day metformin ER 500 mg PO BID metformin ER 500 mg PO BID 90 days pantoprazole 40 mg PO DAILY 90 days pen needle, diabetic (Comfort EZ Pen Adrian) As directed Tobacco use date assessed: 06/16/24 Fall risk assessment: No Falls in past year Last assessed Fall Risk: 06/16/24 Dental Screening Dental Screen Date: 06/16/24 Did you have a dental visit in the last 12 months?: No Did you have a dental problem in the last 6 months where you did not have access to dental care?: No Was dental information given to patient?: No HPI DM, CAD, hyperlipidemia - see comments HPI Details Patient comes in today for his follow up visit States that he feels okay He denies any headaches or dizziness Denies any chest pains, no increased shortness of breath No nausea/vomiting, no abdominal pain No change in bowel habits noted He needs his Atorvastatin Rx refilled His is also requesting to have his hearing checked again by ENT as his hearing seems to have gotten a lot worse over the past few years He had his follow-up labs done a couple of weeks ago - to discuss his results [facility] Medical History Chronic kidney disease, stage III (moderate) Alcoholism Lichen simplex chronicus Coronary artery disease involving bypass graft of transplanted heart Diabetes mellitus Overweight (BMI 25.0-29.9) Dyschromia Esophageal stricture Coronary artery disease Gout Pure hypercholesterolemia Benign essential hypertension Surgical History S/P CABG x 4 (~04/10/22) History of percutaneous coronary intervention (~2008) History of coronary angioplasty (~1998) History of colonoscopy Varicose vein of leg Family History Father Medical history unknown Mother Diabetes Hypertension Social History Housing: House Alcohol intake: current Alcohol intake frequency: holidays/special occasions only Patient Tobacco Use Status: Former Tobacco user Years Smoked: 25 +/- e-Cigarette/Vaping Use: Never Used Second Hand Smoke Exposure: Yes service: No Current occupational status: retired Cognitive needs: No Hearing needs: No Vision needs: No Questionnaire PHQ-9 Over the last 2 weeks, how often have you been bothered by any of the following problems? 1. Little interest or pleasure in doing things: nearly every day 2. Feeling down, depressed, or hopeless: nearly every day 3. Trouble falling or staying asleep, or sleeping too much: not at all 4. Feeling tired or having little energy: not at all 5. Poor appetite or overeating: not at all 6. Feeling bad about yourself - or that you are a failure or have let yourself or your family down: not at all 7. Trouble concentrating on things, such as reading the newspaper or watching television: not at all 8. Moving or speaking so slowly that other people could have noticed. Or the opposite - being so fidgety or restless that you have been moving around a lot more than usual: not at all 9. Thoughts that you would be better off or of hurting yourself in some way: not at all Total score: 6 Depression Screening Interpretation: Positive Depression Screening Follow-up: Existing condition and In treatment Depression Screening Done: Yes 61540 - PHQ-9 Billing: Yes Source: Developed by Drs. Johnny Cuellar, Lilly Belle, Marcus Chambers and colleagues, with an educational lillie from [email or web address]. Thrive Questionnaire Date Thrive assessed: 06/16/24 I am a: Patient What is your living situation today?: I have a steady place to live Within the past 12 months, did the food you bought not last and you didn't have the money to get more?: I choose not to answer this question Within the past 12 months, did you worry whether your food would run out before you got money to buy more?: I choose not to answer this question Do you have trouble paying for medicines?: No Do you have trouble getting transportation to medical appointments?: No Do you have trouble paying your heating and electricity bill?: No Do you have trouble taking care of your child, family member or friend?: No Do you have trouble with day-to-day activities such as bathing, preparing meals, shopping, managing finances, etc.?: No Are you currently unemployed and looking for a job?: No Are you interested in more education?: No Please select the resources that you would like help with: None Currently or been in a relationship where the following occur: I choose not to answer THRIVE Score: 0 AUDIT C Alcohol Use Questionnaire (AUDIT-C) 1. How often do you have a drink containing alcohol?: Monthly or less 2. How many drinks containing alcohol do you have on a typical day when you are drinking?: 1 or 2 3. How often do you have six or more drinks on one occasion?: Never Total Score: 1 Score Reviewed/Action Taken: Yes KAITLYN-7 AMB Questionnaire KAITLYN-7 Date KAITLYN - 7 assessed: 06/16/24 Feeling nervous, anxious, or on edge: 0 = Not at all Not being able to stop or control worryin = Not at all Worrying too much about different things: 0 = Not at all Trouble relaxin = Not at all Being so restless that it is hard to sit still: 0 = Not at all Becoming easily annoyed or irritable: 0 = Not at all Feeling afraid as if something awful might happen: 0 = Not at all Total KAITLYN-7 score (0-4 normal; 5-9 mild; 10-14 moderate; 15-21 severe): 0 Source: Developed by Drs. Johnny Cuellar, Lilly Belle, Marcus Chambers and colleagues, with an educational lillie from [email or web address]. Review of Systems Const Denies chills, Reports fatigue, Denies fever(s) and Denies headache(s) ENT Denies dysphagia, Denies dizziness, Denies otalgia, Denies headache(s), Reports hearing loss, Denies neck pain, Denies odynophagia and Denies sore throat Card Denies chest pain, Denies rapid heart rate, Denies palpitations and Denies dyspnea Resp Denies chest congestion, Denies cough and Denies dyspnea GI Denies abdominal pain, Denies constipation, Denies dysphagia, Denies heartburn, Denies diarrhea, Denies nausea, Denies odynophagia and Denies vomiting Denies difficulty urinating, Denies dysuria, Denies nocturia and Denies urinary frequency Musc Denies back pain and Denies neck pain Skin/Breast Denies rash Neuro Denies dizziness and Denies headache(s) Endo Reports fatigue and Denies palpitations Physical exam (Primary Care) Vital Signs: Last Vital Signs Pulse 76 06/16/24 10:37 BP 112/64 06/16/24 10:37 Pulse Ox 98 06/16/24 10:37 Oxygen Delivery Method Room Air 06/16/24 10:37 BMI result Body Mass Index 27.5 Tobacco/Smoking Status: Tobacco use Status Tobacco use date assessed 06/16/24 06/16/24 10:39 Patient Tobacco Use Status Former Tobacco user 06/16/24 10:39 Tobacco use type 06/24/23 11:59 e-Cigarette/Vaping Use Never Used 06/16/24 10:39 PHQ-9: PHQ-9 Score PHQ-9: Total score 6 06/16/24 11:06 Depression Screening Interpretation: Positive Depression Screening Follow-up: Existing condition and In treatment Thrive Assessment: Date of Thrive Assessment Date Thrive assessed 06/16/24 06/16/24 10:39 Currently or been in a relationship where the following occur: I choose not to answer Const General: no acute distress and alert HENMT Ears: TM's normal bilaterally and EAC's normal Throat: Yes posterior oropharynx normal and Yes tonsils normal (no TP congestion) Neck Neck: Yes supple and No lymphadenopathy Thyroid: Thyroid normal Resp Auscultation: clear to auscultation bilaterally, no rales and no wheezes Cardio Rate: regular rate Rhythm: regular rhythm Heart sounds: no murmurs GI Palpation (GI): Soft to palpation and nontender Auscultation: normal bowel sounds General: Yes no CVA tenderness Back/Spine/Pelvis Back: no CVA tenderness Thoracic/Lumbar Spine: No lumbar spinal tenderness Skin Rashes: no rashes Extrem General: Yes no clubbing, cyanosis or edema Results Reviewed Results Reviewed: Laboratory Tests 06/02/24 06/02/24 08:50 08:54 WBC 7.1 Hgb 13.1 L Hct 39.0 L Plt Count 249 Sodium 144 Potassium 3.2 L Creatinine 1.84 H Estimated GFR 36 Fasting Glucose 135 H Hemoglobin A1c % 9.7 H Uric Acid 10.7 H Calcium 9.3 AST 34 ALT 53 H Triglycerides 126 Cholesterol 112 LDL Cholesterol, Calc 55 HDL Cholesterol 32 L Vitamin B12 396 25-OH Vitamin D Total 43.4 TSH 2.41 Ur Specific [place] 1.020 Urine Protein Negative Urine Glucose (UA) Negative Urine Blood Negative Urine Nitrite Negative Ur Leukocyte Esterase Trace H Microalb/Creat Ratio 7.0 Coding Level of Care Code Est Pt Level 4 (88473) Complex EM visit Add On G2211 Diagnoses Coronary artery disease involving [place] coronary artery of [place] heart without angina pectoris I25.10 Associated angina: without angina Coronary Disease-Associated Artery/Lesion type: [place] artery [place] vs. transplanted heart: [place] heart NSTEMI (non-ST elevated myocardial infarction) I21.4 Pure hypercholesterolemia E78.00 Type 2 diabetes mellitus without complication, without long-term current use of insulin E11.9 Diabetes mellitus complication status: without complication Diabetes mellitus intermediate designer insulin use: without group home use Diabetes mellitus type: type 2 Benign essential hypertension I10 Idiopathic gout, unspecified chronicity, unspecified site M10.00 Chronicity: unspecified Gout etiology: idiopathic Gout site: unspecified site Stage 3b chronic kidney disease N18.32 Chronic kidney disease stage 3 subtype: stage 3b (GFR 30-44) Esophageal stricture K22.2 Memory impairment R41.3 Hearing loss, unspecified hearing loss type, unspecified laterality H91.90 Hearing loss type: unspecified Laterality: unspecified laterality Lichen simplex chronicus L28.0 Dyschromia L81.9 Alcoholism F10.20 Overweight (BMI 25.0-29.9) E66.3 Additional Codes PHQ-9 - 86785 - PHQ-9 Billing: Yes ([id number]) Assessment & Plan Assessment & Plan (1) Coronary artery disease: Comment: S/P multiple interventions - 1998, 2008 and 2022 (see surgical Hx) Code(s): I25.10 - Atherosclerotic heart disease of [place] coronary artery without angina pectoris Category: Medical Qualifiers: Associated angina: without angina Coronary Disease-Associated Artery/Lesion type: [place] artery [place] vs. transplanted heart: [place]hoe heart Qualified Code(s): I25.10 - Atherosclerotic heart disease of [place] coronary artery without angina pectoris Plan: S/P multiple cardiac interventions over the years, most recently CABG x 4 (RASCON to LAD, SVG to PDA, SVG to distal circumflex and SVG to OM) on 04/10/[address] Yuly Washington at [facility] Continue low dose Aspirin 81 mg QD and Clopidogrel 75 mg QD; continue Carvedilol 3.125 mg BID (dose lowered in September 2022 due to TONI) Follow up with cardiology (Dr. Booker) regularly as scheduled (2) NSTEMI (non-ST elevated myocardial infarction): Code(s): I21.4 - Non-ST elevation (NSTEMI) myocardial infarction Category: Medical Plan: Patient was found to have NSTEMI on work ups when he presented to the ER at [facility] on 04/02/2022 with chest discomfort Coronary angiogram revealed multivessel (4-vessel) disease with 80% stenosis of the proximal LAD, 95% stenosis of the left circumflex and 70% stenosis of the mid RCA He eventually underwent coronary intervention with CABG x 4 Continue aggressive risk factor reduction, including BP, cholesterol and DM He is again presently asymptomatic from cardiac standpoint Follow up with cardiology as scheduled (3) Pure hypercholesterolemia: Code(s): E78.00 - Pure hypercholesterolemia, unspecified Category: Medical Plan: Results of his labs done a couple of weeks ago reviewed and discussed with patient and his - advised them that his cholesterol numbers have improved significantly from previous Continue Atorvastatin 80 mg QD Will recheck his labs and fasting lipids in 4 months for follow up (4) Diabetes mellitus: Code(s): E11.9 - Type 2 diabetes mellitus without complications Category: Medical Qualifiers: Diabetes mellitus complication status: without complication Diabetes mellitus intermediate designer insulin use: without intermediate designer use Diabetes mellitus type: type 2 Qualified Code(s): E11.9 - Type 2 diabetes mellitus without complications Plan: His HgbA1c has increased further from 7.9% to 9.7% on his labs done a couple of weeks ago (HgbA1c was at 6.9% around this time last year and at 5.3% a couple of years ago) - goal is at least <7.0% Reinforced low calorie diet/exercise as tolerated Continue Metformin ER 500 mg BID His Lantus 10 units QD was discontinued during his recent hospitalization last year Will start him additionally on Jardiance 25 mg Q AM (5) Benign essential hypertension: Code(s): I10 - Essential (primary) hypertension Category: Medical Plan: Reinforced low sodium diet - goal is systolic BP of 120 mm or less in light of his recent NSTEMI and CABG Continue Carvedilol 3.125 mg BID and HCTZ 12.5 mg QD His Amlodipine 10 mg, HCTZ 25 mg, Spironolactone 25 mg and Furosemide 20 mg were all discontinued back in September 2022 when he was admitted for TONI and hyperkalemia but he was started back on HCTZ by cardiology a few months ago (6) Gout: Code(s): M10.9 - Gout, unspecified Category: Medical Qualifiers: Chronicity: unspecified Gout etiology: idiopathic Gout site: unspecified site Qualified Code(s): M10.00 - Idiopathic gout, unspecified site Plan: Patient's serum uric acid level is still elevated at 10.7 on his recent labs; it was previously at 8.6 a few months ago Reinforced low purine diet - states that he's had no acute flare ups of gout lately Continue Colchicine 0.6 mg QD (7) Chronic kidney disease, stage III (moderate): Code(s): N18.30 - Chronic kidney disease, stage 3 unspecified Category: Medical Qualifiers: Chronic kidney disease stage 3 subtype: stage 3b (GFR 30-44) Qualified Code(s): N18.32 - Chronic kidney disease, stage 3b Plan: His renal function is mostly unchanged from previous on his recent labs Will continue to monitor his serum creatinine level and GFR regularly (8) Esophageal stricture: Code(s): K22.2 - Esophageal obstruction Category: Medical Plan: Barium swallow done a couple of years ago showed (+) stricture/narrowing at the distal esophageal area Continue Pantoprazole 40 mg QD Follow up with GI as scheduled (9) Memory impairment: Code(s): R41.3 - Other amnesia Category: Medical Plan: Suspect MCI vs early dementia Continue Donepezil 10 mg Q HS Continue Doxepin 10 mg Q HS PRN to help with his anxiety at night He was previously referred to neurology for further evaluation and management but it does not look like he has been seen by neurology at all (10) Hearing loss: Code(s): H91.90 - Unspecified hearing loss, unspecified ear Category: Medical Qualifiers: Hearing loss type: unspecified Laterality: unspecified laterality Qualified Code(s): H91.90 - Unspecified hearing loss, unspecified ear Plan: Will refer him to ENT for reassessment of his hearing loss (11) Lichen simplex chronicus: Code(s): L28.0 - Lichen simplex chronicus Category: Medical Plan: Continue augmented topical Betamethasone cream 0.05% BID Follow up with dermatology as scheduled (12) Dyschromia: Code(s): L81.9 - Disorder of pigmentation, unspecified Category: Medical Plan: He was seen by dermatology a couple of years ago and 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), which is a benign issue but has no effective treatment options Continue Lotrisone cream BID PRN mostly for symptomatic relief (13) Alcoholism: Code(s): F10.20 - Alcohol dependence, uncomplicated Category: Medical Plan: His now states that patient has been drinking for a while now (years) but he was good at concealing this from everyone until recently States that he was drinking when he had his cardiac event last year and that this got worse for a while but he is now only drinking occasionally/socially (14) Overweight (BMI 25.0-29.9): Code(s): E66.3 - Overweight Category: Medical Plan: Reinforced diet; exercise and weight are somewhat limited due to his current comorbidities but patient is encouraged to stay active as much as he can Plan Follow up in 4 months Orders: Orders Hemoglobin A1c 4 Months E11.9 - Type 2 diabetes mellitus without complications Complete Blood Count Auto Diff 4 Months D64.9 - Anemia, unspecified Comprehensive [place]. Panel Fast 4 Months E78.00 - Pure hypercholesterolemia, unspecified Lipid Panel 4 Months E78.00 - Pure hypercholesterolemia, unspecified Microalbumin, Random (w Creat) 4 Months E11.9 - Type 2 diabetes mellitus without complications TSH reflex Free T4 4 Months E78.00 - Pure hypercholesterolemia, unspecified UA CC w/rflx Micro + Cult 4 Months R30.0 - Dysuria Uric Acid 4 Months M10.9 - Gout, unspecified Referrals Ear/Nose/Throat Referral H91.93 - Unspecified hearing loss, bilateral Medications: New Jardiance (empagliflozin) 25 mg PO QAM 90 days 90 tabs 1RF NS Refilled atorvastatin 80 mg PO DAILY 90 days 90 tabs 3RF E78.00 - Pure hypercholesterolemia, unspecified, I25.10 - Atherosclerotic heart disease of [place] coronary artery without angina pectoris
[2024-06-16 10:37] VITALS: BP 112/64; PULSE 76; O2SAT 98; BMI 27.5
--- OUTSIDE RECORDS SUMMARY | 2024-06-16 11:33 | XMS_ITS | Encounter Summary ---
Author Organization [facility] Address [address] [place] [address] Phone Care Team Providers Care Design Center Consultant Name Role Phone Raul Robles MD Primary Care Provider [phone]- [phone] Encounter Details Date Type Department Care Team (Late Contact Info) Description 10/29/2022 Documentation Only [facility] [address] [place] [address] Bartolo Dumont MD [address] [place] [address] [place] [address] Social History Tobacco Use Types [...] Visit [facility] [address] [place] [address] Bartolo Dumont MD [address] [facility] [place] [address] documented as of this encounter Visit Diagnoses Not on filedocumented in this encounter Care Teams Design Center Consultant Relationship Specialty Start Date End Date Raul Robles MD [address] [place], [place] [id number] PCP - General Internal Medicine 10/01/22 documented as of this encounter
--- OUTSIDE RECORDS SUMMARY | 2024-06-16 11:33 | XMS_ITS | Encounter Summary ---
Author Organization [facility] Address [address] [place] [address] Phone Care Team Providers Care Learning And Development Manager Name Role Phone Raul Robles MD Primary Care Provider +1- [phone] Encounter Details Date Type Department Care Team (Late Contact Info) Description 10/16/2022 Documentation Only [facility] [address] [place] [address] Bartolo Dumont MD [address] [place] [address] [place] [address] Social History Tobacco Use Types [...] Visit [facility] [address] [place] [address] Bartolo Dumont MD [address] [facility] [place] [address] documented as of this encounter Visit Diagnoses Not on filedocumented in this encounter Care Teams Learning And Development Manager Relationship Specialty Start Date End Date Raul Robles MD [address] [place], [place] [id number] PCP - General Internal Medicine 10/01/22 documented as of this encounter
--- OUTSIDE RECORDS SUMMARY | 2024-06-16 11:33 | XMS_ITS | Encounter Summary ---
Author Organization [facility] Address [address] [place] [address] Phone Care Team Providers Care Wire Transfer Clerk Name Role Phone Raul Robles MD Primary Care Provider +1- [phone] Encounter Details Date Type Department Care Team (Late Contact Info) Description 10/29/2022 Documentation Only [facility] [address] [place] [address] Bartolo Dumont MD [address] [place] [address] [place] [address] Social History Tobacco Use Types [...] Visit [facility] [address] [place] [address] Bartolo Dumont MD [address] [facility] [place] [address] documented as of this encounter Visit Diagnoses Not on filedocumented in this encounter Care Teams Wire Transfer Clerk Relationship Specialty Start Date End Date Raul Robles MD [address] [place], [place] [phone] PCP - General Internal Medicine 10/01/22 documented as of this encounter
--- OUTSIDE RECORDS SUMMARY | 2024-06-16 11:33 | XMS_ITS | Encounter Summary ---
Author Organization [facility] Address [address] [place] [address] Phone Care Team Providers Care Electronic Page Makeup System Operator Name Role Phone Raul Robles MD Primary Care Provider +1- [phone] Encounter Details Date Type Department Care Team (Late Contact Info) Description 10/29/2022 Documentation Only [facility] [address] [address] [place] [phone] Fernando Blanco MD [address] [place] [address] [place] [address] Social History Tobacco Use Types [...] Visit [facility] [address] [place] [address] Bartolo Dumont MD [address] [place] [address] [place] [address] documented as of this encounter Visit Diagnoses Not on filedocumented in this encounter Care Teams Electronic Page Makeup System Operator Relationship Specialty Start Date End Date Raul Robles MD [address] [place] [address] PCP - General Internal Medicine 10/01/22 documented as of this encounter
--- OUTSIDE RECORDS SUMMARY | 2024-06-16 11:33 | XMS_ITS | Encounter Summary ---
Author Organization [facility] Address [address] [place] [address] Phone Care Team Providers Care Steam Roller Operator Name Role Phone Raul Robles MD Primary Care Provider +1- [phone] Encounter Details Date Type Department Care Team (Late Contact Info) Description 10/29/2022 Documentation Only [facility] [address] [place] [address] Bartolo Dumont MD [address] [place] [address] [place] [address] Social History Tobacco Use Types [...] [facility] [address] [place] [address] Bartolo Dumont MD [address] [facility] [place] [address] documented as of this encounter Visit Diagnoses Not on filedocumented in this encounter Care Teams Steam Roller Operator Relationship Specialty Start Date End Date Raul Robles MD [address] [place], [place] [phone] PCP - General Internal Medicine 10/01/22 documented as of this encounter
--- OUTSIDE RECORDS SUMMARY | 2024-06-16 11:33 | XMS_ITS | Encounter Summary ---
Author Organization [facility] Address [address] [place] [address] Phone Care Team Providers Care Statistical Modeler Name Role Phone Raul Robles MD Primary Care Provider +1- [phone] Encounter Details Date Type Department Care Team (Late Contact Info) Description 10/29/2022 Documentation Only [facility] [address] [place] [address] Bartolo Dumont MD [address] [place] [address] Dr. [place] [address] Social History Tobacco Use Types [...] Visit [facility] [address] [place] [address] Bartolo Dumont MD [address] [facility] [place] [place] [address] documented as of this encounter Visit Diagnoses Not on filedocumented in this encounter Care Teams Statistical Modeler Relationship Specialty Start Date End Date Raul Robles MD [address] [place], [place] [phone] PCP - General Internal Medicine 10/01/22 documented as of this encounter
--- OUTSIDE RECORDS SUMMARY | 2024-06-16 11:33 | XMS_ITS | Encounter Summary ---
Author Organization [facility] Address [address] [place] [address] Phone Care Team Providers Care Heat And Vent Aircraft Mechanic Name Role Phone Raul Robles MD Primary Care Provider +1- [phone] Encounter Details Date Type Department Care Team (Late Contact Info) Description 10/29/2022 Documentation Only [facility] [address] [place] [place] [address] Bartolo Dumont MD [address] [place] [address] [place] [address] Social History Tobacco Use Types [...] Visit [facility] [address] [place] [address] Bartolo Dumont MD [address] [facility] [place] [address] documented as of this encounter Visit Diagnoses Not on filedocumented in this encounter Care Teams Heat And Vent Aircraft Mechanic Relationship Specialty Start Date End Date Raul Robles MD [address] [place], [place] [id number] PCP - General Internal Medicine 10/01/22 documented as of this encounter
--- OUTSIDE RECORDS SUMMARY | 2024-06-16 11:33 | XMS_ITS | Encounter Summary ---
Author Organization [facility] Address [address] [place] [address] Phone Care Team Providers Care Boat Worker Name Role Phone Raul Robles MD Primary Care Provider +1- [phone] Encounter Details Date Type Department Care Team (Late st Contact Info) Description 06/03/2024 Documentation Only [facility] [address] [place] [address] Teodora Lozada [place] [address] [place] [phone] Social History Tobacco Use Types Packs/Day Years [...] Visit [facility] [address] [place] [address] Bartolo Dumont MD [address] [place] [address] [place] [address] documented as of this encounter Visit Diagnoses Not on filedocumented in this encounter Care Teams Boat Worker Relationship Specialty Start Date End Date Raul Robles MD [address] [place], [place] [phone] PCP - General Internal Medicine 10/01/22 documented as of this encounter
--- OUTSIDE RECORDS SUMMARY | 2024-06-16 11:33 | XMS_ITS | Clinical Summary ---
Author Organization [facility] [place], Address [address] [place] [address] [place] [address] Phone Care Team Providers Care Email Marketing Intern Name Role Phone Raul Robles MD Primary Care Provider +1- [phone] Allergies Active Allergy Reactions Criticality Noted Date [...] Only [facility] [address] [place] [address] Teodora Lozada MA from Last [...] Visit [facility] [address] [place] [place] [address] Bartolo Dumont MD [address] [place] [address] [place] [phone] Health Maintenance Due Date Last Done Comments [...] patient's age to complete this topic Insurance [facility] Care Teams Email Marketing Intern Relationship Specialty Start Date End Date Raul Rboles MD [address] [place] [address] DR[address] [place] [address] PCP - General Internal Medicine 10/01/22
--- OUTSIDE RECORDS SUMMARY | 2024-06-16 11:33 | XMS_ITS | Encounter Summary ---
Author Organization [facility] Address [address] [place] [address] Phone Care Team Providers Care Scheduling Representative Name Role Phone Raul Robles MD Primary Care Provider +1- [phone] Encounter Details Date Type Department Care Team (Late st Contact Info) Description 04/24/2023 Documentation Only [facility] [address] [place] [address] Judy Dunlap [address] [place] [phone] Social History Tobacco Use Types Packs/Day Years [...] Visit [facility] [address] [place] [address] Bartolo Dumont MD [address] [place] [address] [place] [address] documented as of this encounter Visit Diagnoses Not on filedocumented in this encounter Care Teams Scheduling Representative Relationship Specialty Start Date End Date Raul Robles MD [address] [place], [place] [phone] PCP - General Internal Medicine 10/01/22 documented as of this encounter
== END 2024-06-16 11:18 | disposition home or self-care (01) ==
LOC: HO.HMCH 10:06
PROVIDERS: PCP Internal Medicine; Visit Provider Internal Medicine
DX: I12.9 Hypertensive chronic kidney disease with stage 1 through stage 4 chronic kidney disease, or unspecified chronic kidney disease (principal); E11.9 Type 2 diabetes mellitus without complications; N18.32 Chronic kidney disease, stage 3b; F10.20 Alcohol dependence, uncomplicated; I25.10 Atherosclerotic heart disease of native coronary artery without angina pectoris; I25.2 Old myocardial infarction; E78.00 Pure hypercholesterolemia, unspecified; M10.00 Idiopathic gout, unspecified site; K22.2 Esophageal obstruction; R41.3 Other amnesia; H91.93 Unspecified hearing loss, bilateral; L28.0 Lichen simplex chronicus; L81.9 Disorder of pigmentation, unspecified; E66.3 Overweight

== ENCOUNTER → 2024-06-16 10:05 | Outpatient (BNVA) | payer OTHER, MEDICARE, SELFPAY ==
[2023-06-24 11:59] VITALS: BP 110/68; BP 112/76; BP 130/70; BMI 26.0
== END ==
PROVIDERS: PCP Internal Medicine; Visit Provider Internal Medicine
DX: I25.10 Atherosclerotic heart disease of native coronary artery without angina pectoris (principal); E78.00 Pure hypercholesterolemia, unspecified; E11.9 Type 2 diabetes mellitus without complications; M10.00 Idiopathic gout, unspecified site; I12.9 Hypertensive chronic kidney disease with stage 1 through stage 4 chronic kidney disease, or unspecified chronic kidney disease; N18.32 Chronic kidney disease, stage 3b; K22.2 Esophageal obstruction; R41.3 Other amnesia; H91.90 Unspecified hearing loss, unspecified ear; L28.0 Lichen simplex chronicus; L81.9 Disorder of pigmentation, unspecified; F10.20 Alcohol dependence, uncomplicated; E66.3 Overweight; I25.2 Old myocardial infarction; Z79.84 Long term (current) use of oral hypoglycemic drugs; Z79.899 Other long term (current) drug therapy
CPT/HCPCS: 96127

== ENCOUNTER → 2024-08-09 23:59 | Outpatient (BNV) | payer OTHER, MEDICARE, SELFPAY ==
[2023-06-24 11:59] VITALS: BP 110/68; BP 112/76; BP 130/70; BMI 26.0
--- NOTE | 2024-09-20 16:55 | MHC.OFFVIS ---
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 Diabetes mellitus Overweight (BMI 25.0-29.9) Dyschromia Esophageal stricture Coronary artery disease Gout Pure hypercholesterolemia Benign essential hypertension Surgical History S/P CABG x 4 (~04/10/22) History of percutaneous coronary intervention (~2008) History of coronary angioplasty (~1998) History of colonoscopy Varicose vein of leg Family History Father Medical history unknown Mother Diabetes Hypertension Social History Housing: House Alcohol intake: current Alcohol intake frequency: holidays/special occasions only Patient Tobacco Use Status: Former Tobacco user Years Smoked: 25 +/- e-Cigarette/Vaping Use: Never Used Second Hand Smoke Exposure: Yes service: No Current occupational status: retired Cognitive needs: No Hearing needs: No Vision needs: No Office Procedures Cardiac Device Check Cardiac Device Check Details: HF monitoring Stable thoracic impedance. 57020-Elkxps Cardiac Device Interrogation, cardio physiologic monitor Procedure code (CPT) selection complete Assessment & Plan Assessment & Plan (1) Ischemic cardiomyopathy: Code(s): I25.5 - Ischemic cardiomyopathy Category: Medical Plan Coding Level of Care Code Procedure Only Diagnoses Ischemic cardiomyopathy I25.5 CPT Codes Cardiac Device Check - Cardiac Device 15: 41622-Nlgeve Cardiac Device Interrogation, cardio physiologic monitor ([id number])
== END ==
PROVIDERS: PCP Internal Medicine; Visit Provider Internal Medicine Cardiovascular Disease
DX: I25.5 Ischemic cardiomyopathy (principal); Z95.0 Presence of cardiac pacemaker
CPT/HCPCS: 93297

== ENCOUNTER → 2024-08-15 23:59 | Outpatient (BNV) | payer OTHER, MEDICARE, SELFPAY ==
[2023-06-24 11:59] VITALS: BP 110/68; BP 112/76; BP 130/70; BMI 26.0
--- NOTE | 2024-08-18 20:36 | MHC.OFFVIS ---
Intake Visit Reasons: Remote device check- Biotronik Allergies ramipril Allergy (Severe, Verified 06/16/24 11:05) angioedema rosuvastatin Adverse Reaction (Intermediate, Verified 06/16/24 11:05) recurrent choking sensation in throat when taking med PFSH Medical History Chronic kidney disease, stage III (moderate) Alcoholism Lichen simplex chronicus Coronary artery disease involving bypass graft of transplanted heart Diabetes mellitus Overweight (BMI 25.0-29.9) Dyschromia Esophageal stricture Coronary artery disease Gout Pure hypercholesterolemia Benign essential hypertension Surgical History S/P CABG x 4 (~04/10/22) History of percutaneous coronary intervention (~2008) History of coronary angioplasty (~1998) History of colonoscopy Varicose vein of leg Family History Father Medical history unknown Mother Diabetes Hypertension Social History Housing: House Alcohol intake: current Alcohol intake frequency: holidays/special occasions only Patient Tobacco Use Status: Former Tobacco user Years Smoked: 25 +/- e-Cigarette/Vaping Use: Never Used Second Hand Smoke Exposure: Yes service: No Current occupational status: retired Cognitive needs: No Hearing needs: No Vision needs: No Office Procedures Cardiac Device Check Cardiac Device Check Details: Dual chamber PPM Good battery life ARMHOLE BASTER HAND 96%. No new alerts. [id number]-Iibecz Cardiac Device Interrogation, pacemaker Procedure code (CPT) selection complete Assessment & Plan Assessment & Plan (1) Pacemaker: Code(s): Z95.0 - Presence of cardiac pacemaker Category: Medical Plan Coding Level of Care Code Procedure Only Diagnoses Pacemaker Z95.0 CPT Codes Cardiac Device Check - Cardiac Device 12: 35805-Zfoxzj Cardiac Device Interrogation, pacemaker ([id number])
== END ==
PROVIDERS: PCP Internal Medicine; Visit Provider Internal Medicine Cardiovascular Disease
DX: Z45.018 Encounter for adjustment and management of other part of cardiac pacemaker (principal)
CPT/HCPCS: 93294

== ENCOUNTER → 2024-09-30 23:59 | Outpatient (BNV) | payer OTHER, MEDICARE, SELFPAY ==
[2023-06-24 11:59] VITALS: BP 110/68; BP 112/76; BP 130/70; BMI 26.0
--- NOTE | 2024-10-09 20:27 | MHC.OFFVIS ---
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 Diabetes mellitus Overweight (BMI 25.0-29.9) Dyschromia Esophageal stricture Coronary artery disease Gout Pure hypercholesterolemia Benign essential hypertension Surgical History S/P CABG x 4 (~04/10/22) History of percutaneous coronary intervention (~2008) History of coronary angioplasty (~1998) History of colonoscopy Varicose vein of leg Family History Father Medical history unknown Mother Diabetes Hypertension Social History Housing: House Alcohol intake: current Alcohol intake frequency: holidays/special occasions only Patient Tobacco Use Status: Former Tobacco user Years Smoked: 25 +/- e-Cigarette/Vaping Use: Never Used Second Hand Smoke Exposure: Yes service: No Current occupational status: retired Cognitive needs: No Hearing needs: No Vision needs: No Office Procedures Cardiac Device Check Cardiac Device Check Details: HF monitoring Stable thoracic impedance. 16654-Dvtcvc Cardiac Device Interrogation, cardio physiologic monitor Procedure code (CPT) selection complete Assessment & Plan Assessment & Plan (1) Pacemaker: Code(s): Z95.0 - Presence of cardiac pacemaker Category: Medical Plan Coding Level of Care Code Procedure Only Diagnoses Pacemaker Z95.0 CPT Codes Cardiac Device Check - Cardiac Device 15: 35559-Tdhhpj Cardiac Device Interrogation, cardio physiologic monitor ([id number])
== END ==
PROVIDERS: PCP Internal Medicine; Visit Provider Internal Medicine Cardiovascular Disease
DX: Z45.018 Encounter for adjustment and management of other part of cardiac pacemaker (principal)
CPT/HCPCS: 93297

== ENCOUNTER 2024-10-22 07:16 | Outpatient (REF) | payer OTHER, MEDICARE, SELFPAY ==
[2023-06-24 11:59] VITALS: BP 110/68; BP 112/76; BP 130/70; BMI 26.0
--- OUTSIDE RECORDS SUMMARY | 2024-10-22 07:19 | XMS_ITS | Encounter Summary ---
Author Organization [facility] Address [address] [place] [address] Phone Care Team Providers Care Acquisition Manager Name Role Phone Raul Robles MD Primary Care Provider +1- [phone] Encounter Details Date Type Department Care Team (Late st Contact Info) Description 10/29/2022 Documentation Only [facility] [address] [place] [address] Bartolo Dumont MD [address] [place] [address] [place] [address] Social History Tobacco Use Types [...] Care Team (Late st Contact Info) Description 03/01/2025 1:30 PM EST Office Visit [facility] [address] [place] [address] Bartolo Dumont MD [address] [place] [address] [place] [address] documented as of this encounter Visit Diagnoses Not on filedocumented in this encounter Care Teams Acquisition Manager Relationship Specialty Start Date End Date Raul Robles MD [address] [place], [place] [phone] PCP - General Internal Medicine 10/01/22 documented as of this encounter
--- OUTSIDE RECORDS SUMMARY | 2024-10-22 07:19 | XMS_ITS | Encounter Summary ---
Author Organization [facility] Address [address] [place] [address] Phone Care Team Providers Care [place] Seamer Name Role Phone Raul Robles MD Primary Care Provider +1- [phone] Encounter Details Date Type Department Care Team (Late st Contact Info) Description 10/29/2022 Documentation Only [facility] [address] [place] [address] Bartolo Dumont MD [address] [place] [address] [place] [address] Social History Tobacco Use Types [...] Visit [facility] [address] [place] [address] Bartolo Dumont MD [address] [place] [address] [place] [address] documented as of this encounter Visit Diagnoses Not on filedocumented in this encounter Care Teams [place] Seamer Relationship Specialty Start Date End Date Raul Robles MD [address] [place], [place] [phone] PCP - General Internal Medicine 10/01/22 documented as of this encounter
--- OUTSIDE RECORDS SUMMARY | 2024-10-22 07:19 | XMS_ITS | Encounter Summary ---
Author Organization [facility] Address [address] [place] [address] Phone Care Team Providers Care Manufacturing Helper Name Role Phone Raul Robles MD Primary Care Provider +1- [phone] Encounter Details Date Type Department Care Team (Late st Contact Info) Description 10/16/2022 Documentation Only [facility] [address] [place] [address] Bartolo Dumont MD [address] [place] [address] [place] [address] Social History Tobacco Use Types [...] Visit [facility] [address] [place] [address] Bartolo Dumont MD [address] [place] [address] [place] [address] documented as of this encounter Visit Diagnoses Not on filedocumented in this encounter Care Teams Manufacturing Helper Relationship Specialty Start Date End Date Raul Robles MD [address] [place], [place] [phone] PCP - General Internal Medicine 10/01/22 documented as of this encounter
--- OUTSIDE RECORDS SUMMARY | 2024-10-22 07:19 | XMS_ITS | Encounter Summary ---
Author Organization [facility] Address [address] [place] [address] Phone Care Team Providers Care Heel Gouger Name Role Phone Raul Robles MD Primary Care Provider +1- [phone] Encounter Details Date Type Department Care Team (Late st Contact Info) Description 10/29/2022 Documentation Only [facility] [address] [place] [address] Bartolo Dumont MD [address] [place] [address] [place] [address] Social History Tobacco Use Types [...] [facility] [address] [place] [address] Bartolo Dumont MD [address] [place] [address] [place] [address] documented as of this encounter Visit Diagnoses Not on filedocumented in this encounter Care Teams Heel Gouger Relationship Specialty Start Date End Date Raul Robles MD [address] [place], [place] [phone] PCP - General Internal Medicine 10/01/22 documented as of this encounter
--- OUTSIDE RECORDS SUMMARY | 2024-10-22 07:19 | XMS_ITS | Encounter Summary ---
Author Organization [facility] Address [address] [place] [address] Phone Care Team Providers Care Quill Skinner Name Role Phone Raul Robles MD Primary Care Provider +1- [phone] Encounter Details Date Type Department Care Team (Late Contact Info) Description 10/29/2022 Documentation Only [facility] Dr [address] HANKINS [address] [place] [phone] Fernando Blanco MD [address] [place] [address] [place] [address] Social History Tobacco Use Types [...] Visit [facility] [address] [place] [address] Bartolo Dumont MD [address] [place] [address] [place] [address] documented as of this encounter Visit Diagnoses Not on filedocumented in this encounter Care Teams Quill Skinner Relationship Specialty Start Date End Date Raul Robles MD [address] [place] [address] PCP - General Internal Medicine 10/01/22 documented as of this encounter
--- OUTSIDE RECORDS SUMMARY | 2024-10-22 07:19 | XMS_ITS | Encounter Summary ---
Author Organization [facility] Address [address] [place] [address] Phone Care Team Providers Care Speedboat Driver Name Role Phone Raul Robles MD Primary Care Provider +1- [phone] Encounter Details Date Type Department Care Team (Late st Contact Info) Description 06/03/2024 Documentation Only [facility] [address] [place] [address] Teodora Lozada [place] [address] [place] [phone] Social History Tobacco Use Types Packs/Day Years [...] Visit [facility] [address] [place] [address] Bartolo Dumont MD [address] [facility] [place] [address] documented as of this encounter Visit Diagnoses Not on filedocumented in this encounter Care Teams Speedboat Driver Relationship Specialty Start Date End Date Raul Robles MD [address] [place], [place] [phone] PCP - General Internal Medicine 10/01/22 documented as of this encounter
--- OUTSIDE RECORDS SUMMARY | 2024-10-22 07:20 | XMS_ITS | Clinical Summary ---
Author Organization [facility], Address [address] [place] [address] [place] [address] Phone Care Team Providers Care Stitch Bonding Machine Operator Name Role Phone Raul Robles MD Primary Care Provider +1- [phone] Allergies Active Allergy Reactions Criticality Noted Date [...] 300 MG/2ML solution auto-injector 01/25/2024 Activ e hydroCHLOROthiaz doug 25 MG tablet Take 25 mg by mouth 1 (one) time each day Active Dapagliflozin Propanediol 10 MG tablet Take 10 mg by mouth 1 (one) time each day in the morning 90 tablet 5 08/17/2024 11/16/19 Active potassium chloride (KLOR-CON M20) 20 MEQ CR tablet Take 1 tablet (20 mEq total) by mouth 1 (one) time each day Do not crush or chew. 90 tablet 5 08/17/2024 11/16/19 Active Active Problems Problem Noted Date Diagnosed Date Stage 3b chronic kidney disease 02/10/2024 Hypertension 10/29/2022 10/29/2022 Type 2 diabetes mellitus 10/29/2022 023 Acute nontraumatic kidney injury 10/29/2022 Hyperkalemia 10/29/2022 Encounters Date Type Department Care Team Description 08/22/2024 Documentation Only [facility] [address] [place] [address] Bartolo Dumont MD 08/17/2024 1:45 PM EDT Office Visit [facility] [address] [place] [address] Bartolo Dumont MD Stage 3b chronic kidney disease (HCC) (Primary Dx) from Last 3 Months Immunizations Immunization Administration [...] Visit [facility] [address] [place] [address] Bartolo Dumont MD [address] [place] [address] Health Maintenance Due Date Last Done Comments Pneumococcal Vaccine: 50+ Ye ars (1 of 2 - PCV) 01/16/1971 Colorectal Cancer Screening: Annual FOBT 01/16/2001 Colorectal Cancer Screening: Colonoscopy 01/16/2001 Colorectal Cancer Screening: Sigmoidoscopy 01/16/2001 Diabetes: Hemoglobin A1C 10/06/2022 Diabetes: Ophthalmology Exam 10/06/2022 Diabetes: Pedal Pulse Checked 10/06/2022 Diabetes: Sensory Foot Exam 10/06/2022 Diabetes: Visual Foot Exam 10/06/2022 Influenza Vaccine (#1) 2024 Hepatitis B Vaccine Aged Out No longe r eligible based on patient's age to complete this topic [place] [address] Care Teams Stitch Bonding Machine Operator Relationship Specialty Start Date End Date Raul Robles MD [address] [place] [address] PCP - General Internal Medicine 10/01/22
--- OUTSIDE RECORDS SUMMARY | 2024-10-22 07:20 | XMS_ITS | Encounter Summary ---
Author Organization [facility] Address [address] [place] [address] Phone Care Team Providers Care Childcare Worker Name Role Phone Raul Robles MD Primary Care Provider +1- [phone] Encounter Details Date Type Department Care Team (Late st Contact Info) Description 10/29/2022 Documentation Only [facility] [address] [place] [address] Bartolo Dumont MD [address] [place] [address] [place] [address] Social History Tobacco Use Types [...] [facility] [address] [place] [address] Bartolo Dumont MD [address] [place] [address] [place] [address] documented as of this encounter Visit Diagnoses Not on filedocumented in this encounter Care Teams Childcare Worker Relationship Specialty Start Date End Date Raul Robles MD [address] [place], [place] [id number] PCP - General Internal Medicine 10/01/22 documented as of this encounter
--- OUTSIDE RECORDS SUMMARY | 2024-10-22 07:20 | XMS_ITS | Encounter Summary ---
Author Organization [facility] Address [address] [place] [address] Phone Care Team Providers Care Vehicle Damage Appraiser Name Role Phone Raul Robles MD Primary Care Provider +1- [phone] Encounter Details Date Type Department Care Team (Late st Contact Info) Description 10/29/2022 Documentation Only [facility] [address] [place] [address] Bartolo Dumont MD [address] [place] [address] [place] [address] Social History Tobacco Use Types [...] [facility] [address] [place] [address] Bartolo Dumont MD [address] [place] [address] [place] [address] documented as of this encounter Visit Diagnoses Not on filedocumented in this encounter Care Teams Vehicle Damage Appraiser Relationship Specialty Start Date End Date Raul Robles MD [address] [place], [place] [phone] PCP - General Internal Medicine 10/01/22 documented as of this encounter
--- OUTSIDE RECORDS SUMMARY | 2024-10-22 07:20 | XMS_ITS | Encounter Summary ---
Author Organization [facility] Address [address] [place] [address] Phone Care Team Providers Care Academic Affairs Director Name Role Phone Raul Robles MD Primary Care Provider +1- [phone] Encounter Details Date Type Department Care Team (Late st Contact Info) Description 08/22/2024 Documentation Only [facility] [address] [place] [address] Bartolo Dumont MD [address] [place] [address] [place] [address] Social History Tobacco Use Types [...] [facility] [address] [place] [address] Bartolo Dumont MD [address] [place] [address] [place] [address] documented as of this encounter Visit Diagnoses Not on filedocumented in this encounter Care Teams Academic Affairs Director Relationship Specialty Start Date End Date Raul Robles MD [address] [place] [address] PCP - General Internal Medicine 10/01/22 documented as of this encounter
--- OUTSIDE RECORDS SUMMARY | 2024-10-22 07:20 | XMS_ITS | Encounter Summary ---
Author Organization [facility] Address [address] [place] [address] Phone Care Team Providers Care Concrete Block Molder Name Role Phone Raul Robles MD Primary Care Provider +1- [phone] Encounter Details Date Type Department Care Team (Late st Contact Info) Description 04/24/2023 Documentation Only [facility] [address] [address] Judy Dunlap [address] [place] [id number] Social History Tobacco Use Types Packs/Day Years [...] [facility] [address] [place] [address] Bartolo Dumont MD [address] [address] [place] [address] documented as of this encounter Visit Diagnoses Not on filedocumented in this encounter Care Teams Concrete Block Molder Relationship Specialty Start Date End Date Raul Robles MD [address] [place], [place] [phone] PCP - General Internal Medicine 10/01/22 documented as of this encounter
[2024-10-22 07:36] LABS: MANUAL DIFF FLAG NO
[2024-10-22 08:24] LABS: Hematocrit 41.7 % (42.0-52.0); Hemoglobin 13.6 g/dl (14.0-18.0); Imm Gran Abs Auto 0.02 X10*3/uL (0.00-0.03); Imm Gran Pct Auto 0.3 % (0.0-0.4); Lymphocytes Absolute Auto 1.8 X10*3/uL (1.2-4.9); Mean Corpuscular HGB Conc 32.6 g/dl (31.0-36.0); Mean Corpuscular Hemoglobin 27.6 pg (27.0-33.0); Mean Corpuscular Volume 84.6 fL (80.0-98.0); NRBC Abs Auto 0.000 X10*3/uL (0.0-0.012); NRBC Pct Auto 0.0 /100WBC (0.0-0.2); Platelet Count 213 X10*3/uL (160-400); Red Blood Count 4.93 X10*6/uL (4.60-5.80); White Blood Count 6.7 X10*3/uL (4.8-10.8)
[2024-10-22 08:36] LABS: Hemoglobin A1C 150.6956 umol/L; Total Hemoglobin (HGBA1C) 3568.7629 umol/L
[2024-10-22 08:57] LABS: Appearance Urine Clear; Glucose Urine UA >=1000 mg/dL (Negative); PH 6.0 (5.0-9.0); Specific Gravity - Urine 1.020 (1.005-1.025); UMIC TRIGGER UACC YES
[2024-10-22 09:06] LABS: Alanine Aminotransferase 69 U/L (0-40); Albumin Level 4.4 g/dL (3.5-5.0); Alkaline Phosphatase 83 U/L (39-117); Anion Gap 15 (12-20); Aspartate Amino Transferase 52 U/L (5-37); Blood Urea Nitrogen 27 mg/dL (9-16); Calcium 8.9 mg/dL (8.4-10.2); Carbon Dioxide 27 mmol/L (22-29); Chloride 104 mmol/L (96-108); Cholesterol 114 mg/dL (<200); Estimated Glomerular Filt Rate 36; HDL Cholesterol 34 mg/dL (>40); Potassium 3.4 mmol/L (3.3-5.1); Sodium 143 mmol/L (135-145); Total Protein 7.1 g/dL (6.5-8.0); Triglycerides 114 mg/dL (<150); Uric Acid 8.1 mg/dL (3.4-7.0)
[2024-10-22 09:36] LABS: Microalbum/Creatinine Ratio Ur 8.5 ug/mg cr (<30)
== END 2024-10-22 07:17 | disposition home or self-care (01) ==
LOC: HO.LAB 07:16
PROVIDERS: PCP Internal Medicine; Visit Provider Internal Medicine
DX: E78.00 Pure hypercholesterolemia, unspecified (principal); M10.9 Gout, unspecified; D64.9 Anemia, unspecified; E11.9 Type 2 diabetes mellitus without complications
CPT/HCPCS: 36415; 80053; 80061; 81001; 81003; 82043; 82570; 83036; 84443; 84550; 85025

== ENCOUNTER 2024-10-27 08:39 | Outpatient (AMB) | payer OTHER, MEDICARE, SELFPAY ==
[2023-06-24 11:59] VITALS: BP 110/68; BP 112/76; BP 130/70; BMI 26.0
[2024-10-27 08:41] VITALS: BP 112/78; PULSE 65; O2SAT 97; BMI 26.5
--- NOTE | 2024-10-27 08:41 | MHC.PC.OV ---
Vital Signs 10/27/24 08:41 Height 5 ft 4 in Weight 154 lb 6 oz BMI 26.5 BP 112/78 Blood Pressure Location Lt brachial Position Sitting Pulse 65 Pulse Source Pulse Oximeter Pulse Oximetry (%) 97 Oxygen Delivery Method Room Air Intake Visit Re[facility] Piano Teacher Required: No Accompanied by: Self / Same As Patient Allergies ramipril Allergy (Severe, Verified 10/27/24 09:17) angioedema rosuvastatin Adverse Reaction (Intermediate, Verified 10/27/24 09:17) recurrent choking sensation in throat when taking med Medication List - Last Reconciled 10/27/24 by Raul Robles MD amlodipine 10 mg PO DAILY aspirin 81 mg PO DAILY atorvastatin 80 mg PO DAILY 90 days betamethasone dipropionate 0.05% 1 appl topical BID PRN blood sugar diagnostic (FreeStyle Lite Strips) As directed 3 times per day carvedilol 3.125 mg PO BID 90 days clopidogrel 75 mg PO DAILY 90 days colchicine 0.6 mg PO DAILY 90 days doxepin 10 mg PO BEDTIME 90 days hydrochlorothiazide 12.5 mg (1/2 x 25 mg) PO DAILY Jardiance (empagliflozin) 25 mg PO QAM 90 days NS lancets (FreeStyle Lancets) As directed 3 times per day metformin ER 500 mg PO BID metformin ER 500 mg PO BID 90 days pantoprazole 40 mg PO DAILY 90 days pen needle, diabetic (Comfort EZ Pen [place]) As directed Tobacco use date assessed: 10/27/24 Fall risk assessment: No Falls in past year Last assessed Fall Risk: 10/27/24 Dental Screening Dental Screen Date: 10/27/24 Did you have a dental visit in the last 12 months?: No Did you have a dental problem in the last 6 months where you did not have access to dental care?: No Was dental information given to patient?: No HPI [facility] HPI Details Patient comes in today for his follow up visit States that he feels okay He denies any headaches or dizziness Denies any chest pains, no increased shortness of breath No nausea/vomiting, no abdominal pain No change in bowel habits noted Needs a couple of his Rx refilled He had his follow-up labs done a few days ago - to discuss his results [facility] Medical History Chronic kidney disease, stage III (moderate) Alcoholism Lichen simplex chronicus Coronary artery disease involving bypass graft of transplanted heart Diabetes mellitus Overweight (BMI 25.0-29.9) Dyschromia Esophageal stricture Coronary artery disease Gout Pure hypercholesterolemia Benign essential hypertension Surgical History S/P CABG x 4 (~04/10/22) History of percutaneous coronary intervention (~2008) History of coronary angioplasty (~1998) History of colonoscopy Varicose vein of leg Family History Father Medical history unknown Mother Diabetes Hypertension Social History Housing: House Alcohol intake: current Alcohol intake frequency: holidays/special occasions only Patient Tobacco Use Status: Former Tobacco user Years Smoked: 25 +/- e-Cigarette/Vaping Use: Never Used Second Hand Smoke Exposure: Yes service: No Current occupational status: retired Cognitive needs: No Hearing needs: No Vision needs: No Questionnaire PHQ-9 Over the last 2 weeks, how often have you been bothered by any of the following problems? 1. Little interest or pleasure in doing things: not at all 2. Feeling down, depressed, or hopeless: not at all 3. Trouble falling or staying asleep, or sleeping too much: not at all 4. Feeling tired or having little energy: not at all 5. Poor appetite or overeating: not at all 6. Feeling bad about yourself - or that you are a failure or have let yourself or your family down: not at all 7. Trouble concentrating on things, such as reading the newspaper or watching television: not at all 8. Moving or speaking so slowly that other people could have noticed. Or the opposite - being so fidgety or restless that you have been moving around a lot more than usual: not at all 9. Thoughts that you would be better off or of hurting yourself in some way: not at all Total score: 0 Depression Screening Interpretation: Negative Depression Screening Done: Yes 02012 - PHQ-9 Billing: Yes Source: Developed by Drs. Johnny L. Lilly Cuellar, Marcus Chambers and colleagues, with an educational lillie from [employer]. Thrive Questionnaire Date Thrive assessed: 10/27/24 I am a: Patient What is your living situation today?: I have a steady place to live Within the past 12 months, did the food you bought not last and you didn't have the money to get more?: I choose not to answer this question Within the past 12 months, did you worry whether your food would run out before you got money to buy more?: I choose not to answer this question Do you have trouble paying for medicines?: No Do you have trouble getting transportation to medical appointments?: I choose not to answer this question Do you have trouble paying your heating and electricity bill?: I choose not to answer this question Do you have trouble taking care of your child, family member or friend?: No Do you have trouble with day-to-day activities such as bathing, preparing meals, shopping, managing finances, etc.?: No Are you currently unemployed and looking for a job?: No Are you interested in more education?: No Please select the resources that you would like help with: None Currently or been in a relationship where the following occur: I choose not to answer THRIVE Score: 0 AUDIT C Alcohol Use Questionnaire (AUDIT-C) 1. How often do you have a drink containing alcohol?: Monthly or less 2. How many drinks containing alcohol do you have on a typical day when you are drinking?: 1 or 2 3. How often do you have six or more drinks on one occasion?: Less than monthly Total Score: 2 Score Reviewed/Action Taken: Yes KAITLYN-7 AMB Questionnaire KAITLYN-7 Date KAITLYN - 7 assessed: 10/27/24 Feeling nervous, anxious, or on edge: 0 = Not at all Not being able to stop or control worryin = Not at all Worrying too much about different things: 0 = Not at all Trouble relaxin = Not at all Being so restless that it is hard to sit still: 0 = Not at all Becoming easily annoyed or irritable: 0 = Not at all Feeling afraid as if something awful might happen: 0 = Not at all Total KAITLYN-7 score (0-4 normal; 5-9 mild; 10-14 moderate; 15-21 severe): 0 Source: Developed by Drs. Johnny Cuellar, Lilly Belle, Marcus Chambers and colleagues, with an educational lillie from [employer]. Review of Systems Const Denies chills, Denies fatigue, Denies fever(s) and Denies headache(s) ENT Denies dysphagia, Denies dizziness, Denies otalgia, Denies headache(s), Reports hearing loss, Denies neck pain, Denies odynophagia and Denies sore throat Card Denies chest pain, Denies rapid heart rate, Denies palpitations and Denies dyspnea Resp Denies chest congestion, Denies cough and Denies dyspnea GI Denies abdominal pain, Denies constipation, Denies dysphagia, Denies heartburn, Denies diarrhea, Denies nausea, Denies odynophagia and Denies vomiting Denies difficulty urinating, Denies dysuria, Denies nocturia and Denies urinary frequency Musc Denies back pain and Denies neck pain Skin/Breast Denies rash Neuro Denies dizziness and Denies headache(s) Endo Denies fatigue and Denies palpitations Physical exam (Primary Care) Vital Signs: Last Vital Signs Pulse 65 10/27/24 08:41 BP 112/78 10/27/24 08:41 Pulse Ox 97 10/27/24 08:41 Oxygen Delivery Method Room Air 10/27/24 08:41 BMI result Body Mass Index 26.5 Tobacco/Smoking Status: Tobacco use Status Tobacco use date assessed 10/27/24 10/27/24 08:46 Patient Tobacco Use Status Former Tobacco user 10/27/24 08:46 Tobacco use type 06/24/23 11:59 e-Cigarette/Vaping Use Never Used 10/27/24 08:46 PHQ-9: PHQ-9 Score PHQ-9: Total score 0 10/27/24 08:46 Depression Screening Interpretation: Negative Thrive Assessment: Date of Thrive Assessment Date Thrive assessed 10/27/24 10/27/24 08:46 Currently or been in a relationship where the following occur: I choose not to answer Const General: no acute distress and alert HENMT Ears: TM's normal bilaterally and EAC's normal Throat: Yes posterior oropharynx normal and Yes tonsils normal (no TP congestion) Neck Neck: Yes supple and No lymphadenopathy Thyroid: Thyroid normal Resp Auscultation: clear to auscultation bilaterally, no rales and no wheezes Cardio Rate: regular rate Rhythm: regular rhythm Heart sounds: no murmurs GI Palpation (GI): Soft to palpation and nontender Auscultation: normal bowel sounds General: Yes no CVA tenderness Back/Spine/Pelvis Back: no CVA tenderness Thoracic/Lumbar Spine: No lumbar spinal tenderness Skin Rashes: no rashes Extrem General: Yes no clubbing, cyanosis or edema Results Reviewed Results Reviewed: Laboratory Tests 10/22/24 10/22/24 07:32 07:35 WBC 6.7 Hgb 13.6 L Hct 41.7 L Plt Count 213 Sodium 143 Potassium 3.4 Creatinine 1.85 H Estimated GFR 36 Fasting Glucose 115 H Hemoglobin A1c % 6.0 Uric Acid 8.1 H AST 52 H ALT 69 H Triglycerides 114 Cholesterol 114 LDL Cholesterol, Calc 58 HDL Cholesterol 34 L TSH 3.03 Ur Specific [place] 1.020 Urine Protein Trace Urine Glucose (UA) >=1000 H Urine Blood Large (3+) H Urine Nitrite Negative Ur Leukocyte Esterase Negative Microalb/Creat Ratio 8.5 Coding Level of Care Code Est Pt Level 4 (60307) Diagnoses Coronary artery disease involving marshall coronary artery of marshall heart without angina pectoris I25.10 Coronary Disease-Associated Artery/Lesion type: marshall artery [place] vs. transplanted heart: marshall heart Associated angina: without angina NSTEMI (non-ST elevated myocardial infarction) I21.4 Pure hypercholesterolemia E78.00 Type 2 diabetes mellitus without complication, without long-term current use of insulin E11.9 Diabetes mellitus type: type 2 Diabetes mellitus shelter insulin use: without middle or intermediate school principal use Diabetes mellitus complication status: without complication Benign essential hypertension I10 Idiopathic gout, unspecified chronicity, unspecified site M10.00 Gout site: unspecified site Gout etiology: idiopathic Chronicity: unspecified Stage 3b chronic kidney disease N18.32 Chronic kidney disease stage 3 subtype: stage 3b (GFR 30-44) Esophageal stricture K22.2 Memory impairment R41.3 Lichen simplex chronicus L28.0 Dyschromia L81.9 Alcoholism F10.20 Overweight (BMI 25.0-29.9) E66.3 Additional Codes PHQ-9 - 01141 - PHQ-9 Billing: Yes ([id number]) Assessment & Plan Assessment & Plan (1) Coronary artery disease: Comment: S/P multiple interventions - 1998, 2008 and 2022 (see surgical Hx) Code(s): I25.10 - Atherosclerotic heart disease of marshall coronary artery without angina pectoris Category: Medical Qualifiers: Coronary Disease-Associated Artery/Lesion type: marshall artery [place] vs. transplanted heart: marshall heart Associated angina: without angina Qualified Code(s): I25.10 - Atherosclerotic heart disease of marshall coronary artery without angina pectoris Plan: S/P multiple cardiac interventions over the years, most recently CABG x 4 (RASCON to LAD, SVG to PDA, SVG to distal circumflex and SVG to OM) on 04/10/[address] Yuly Washington at [facility] Continue low dose Aspirin 81 mg QD and Clopidogrel 75 mg QD; continue Carvedilol 3.125 mg BID (dose lowered in September 2022 due to TONI) Follow up with cardiology (Dr. Booker) regularly as scheduled (2) NSTEMI (non-ST elevated myocardial infarction): Code(s): I21.4 - Non-ST elevation (NSTEMI) myocardial infarction Category: Medical Plan: Patient was found to have NSTEMI on work ups when he presented to the ER at [facility] on 04/02/2022 with chest discomfort Coronary angiogram revealed multivessel (4-vessel) disease with 80% stenosis of the proximal LAD, 95% stenosis of the left circumflex and 70% stenosis of the mid RCA He eventually underwent coronary intervention with CABG x 4 Continue aggressive risk factor reduction, including BP, cholesterol and DM He is again presently asymptomatic from cardiac standpoint Follow up with cardiology as scheduled (3) Pure hypercholesterolemia: Code(s): E78.00 - Pure hypercholesterolemia, unspecified Category: Medical Plan: Results of his labs done a few days ago reviewed and discussed with patient and his Continue Atorvastatin 80 mg QD Will recheck his labs and fasting lipids in 4 months for follow up (4) Diabetes mellitus: Code(s): E11.9 - Type 2 diabetes mellitus without complications Category: Medical Qualifiers: Diabetes mellitus type: type 2 Diabetes mellitus middle or intermediate school principal insulin use: without middle or intermediate school principal use Diabetes mellitus complication status: without complication Qualified Code(s): E11.9 - Type 2 diabetes mellitus without complications Plan: His HgbA1c has inproved significantly from 9.7% to 6.0% on his labs done a few days ago - goal is at least <7.0% Reinforced low calorie diet/exercise as tolerated Continue Metformin ER 500 mg BID and Jardiance 25 mg Q AM His Lantus 10 units QD was discontinued during his recent hospitalization last year His adds that he has been more active and walking regularly for the past couple of months now and has lost some weight as well as a result (5) Benign essential hypertension: Code(s): I10 - Essential (primary) hypertension Category: Medical Plan: Reinforced low sodium diet - goal is systolic BP of 120 mm or less in light of his recent NSTEMI and CABG Continue Carvedilol 3.125 mg BID and HCTZ 12.5 mg QD His Amlodipine 10 mg, HCTZ 25 mg, Spironolactone 25 mg and Furosemide 20 mg were all discontinued back in September 2022 when he was admitted for TONI and hyperkalemia but he was started back on HCTZ by cardiology earlier this year (6) Gout: Code(s): M10.9 - Gout, unspecified Category: Medical Qualifiers: Gout site: unspecified site Gout etiology: idiopathic Chronicity: unspecified Qualified Code(s): M10.00 - Idiopathic gout, unspecified site Plan: Patient's serum uric acid level has improved from 10.7 to 8.1 on his recent labs Reinforced low purine diet - states that he's had no acute flare ups of gout lately Continue Colchicine 0.6 mg QD (7) Chronic kidney disease, stage III (moderate): Code(s): N18.30 - Chronic kidney disease, stage 3 unspecified Category: Medical Qualifiers: Chronic kidney disease stage 3 subtype: stage 3b (GFR 30-44) Qualified Code(s): N18.32 - Chronic kidney disease, stage 3b Plan: His renal function is mostly unchanged from previous on his recent labs and has been stable over the past year Will continue to monitor his serum creatinine level and GFR regularly (8) Esophageal stricture: Code(s): K22.2 - Esophageal obstruction Category: Medical Plan: Barium swallow done a couple of years ago showed (+) stricture/narrowing at the distal esophageal area Continue Pantoprazole 40 mg QD Follow up with GI as scheduled (9) Memory impairment: Code(s): R41.3 - Other amnesia Category: Medical Plan: Suspect MCI vs early dementia Continue Donepezil 10 mg Q HS Continue Doxepin 10 mg Q HS PRN to help with his anxiety at night He was previously referred to neurology for further evaluation and management but it does not look like he has been seen by neurology at all (10) Lichen simplex chronicus: Code(s): L28.0 - Lichen simplex chronicus Category: Medical Plan: Continue augmented topical Betamethasone cream 0.05% BID Follow up with dermatology as scheduled (11) Dyschromia: Code(s): L81.9 - Disorder of pigmentation, unspecified Category: Medical Plan: He was seen by dermatology a couple of years ago and 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), which is a benign issue but has no effective treatment options Continue Lotrisone cream BID PRN mostly for symptomatic relief (12) Alcoholism: Code(s): F10.20 - Alcohol dependence, uncomplicated Category: Medical Plan: His now states that patient has been drinking for a while now (years) but he was good at concealing this from everyone until recently States that he was drinking when he had his cardiac event last year and that this got worse for a while but he is now only drinking occasionally/socially (13) Overweight (BMI 25.0-29.9): Code(s): E66.3 - Overweight Category: Medical Plan: Reinforced diet; exercise and weight are somewhat limited due to his current comorbidities but patient is encouraged to continue to stay active as much as he can Plan Follow up in 4 months Orders: Orders Comprehensive [place]. Panel Fast 4 Months E78.00 - Pure hypercholesterolemia, unspecified Lipid Panel 4 Months E78.00 - Pure hypercholesterolemia, unspecified Microalbumin, Random (w Creat) 4 Months E11.9 - Type 2 diabetes mellitus without complications Hemoglobin A1c 4 Months E11.9 - Type 2 diabetes mellitus without complications TSH reflex Free T4 4 Months E78.00 - Pure hypercholesterolemia, unspecified UA CC w/rflx Micro + Cult 4 Months R30.0 - Dysuria Vitamin D 25-OH Total 4 Months E55.9 - Vitamin D deficiency, unspecified Complete Blood Count Auto Diff 4 Months D64.9 - Anemia, unspecified Uric Acid 4 Months M10.9 - Gout, unspecified Vitamin B12 and Folate 4 Months E53.8 - Deficiency of other specified B group vitamins Medications: Refilled doxepin 10 mg PO BEDTIME 90 caps 1RF 90 days Jardiance (empagliflozin) 25 mg PO QAM 90 tabs 3RF 90 days NS
--- OUTSIDE RECORDS SUMMARY | 2024-10-27 09:09 | XMS_ITS | Encounter Summary ---
Author Organization [facility] Address [address] [place] [address] Phone Care Team Providers Care Golf Player Assistant Name Role Phone Raul Robles MD Primary Care Provider [phone]- [phone] Encounter Details Date Type Department Care Team (Late st Contact Info) Description 10/29/2022 Documentation Only [facility] [address] [place] [address] Bartolo Dumont MD [address] [place] [address] Dr. [place] [address] Social History Tobacco Use Types [...] Visit [facility] [address] [place] [address] Bartolo Dumont MD [address] [place] [address] Dr. [place] [address] documented as of this encounter Visit Diagnoses Not on filedocumented in this encounter Care Teams Golf Player Assistant Relationship Specialty Start Date End Date Raul Robles MD [address] [place], [place] [phone] PCP - General Internal Medicine 10/01/22 documented as of this encounter
--- OUTSIDE RECORDS SUMMARY | 2024-10-27 09:09 | XMS_ITS | Encounter Summary ---
Author Organization [facility] Address [address] [place] [address] Phone Care Team Providers Care Farmworker [employer] Name Role Phone Raul Robles MD Primary Care Provider [phone]- [phone] Encounter Details Date Type Department Care Team (Late st Contact Info) Description 10/29/2022 Documentation Only [facility] [address] [place] [address] Bartolo Dumont MD [address] [place] [address] [place] [address] Social History Tobacco Use Types [...] Visit [facility] [address] [place] [address] Bartolo Dumont MD [address] [place] [address] [place] [address] documented as of this encounter Visit Diagnoses Not on filedocumented in this encounter Care Teams Farmworker [employer] Relationship Specialty Start Date End Date Raul Robles MD [address] [place], [place] [phone] PCP - General Internal Medicine 10/01/22 documented as of this encounter
--- OUTSIDE RECORDS SUMMARY | 2024-10-27 09:09 | XMS_ITS | Encounter Summary ---
Author Organization [facility] Address [address] [place] [address] Phone Care Team Providers Care Recruiting Specialist Name Role Phone Raul Robles MD Primary Care Provider +1- [phone] Encounter Details Date Type Department Care Team (Late st Contact Info) Description 10/29/2022 Documentation Only [facility] [address] [place] [address] Bartolo Dumont MD [address] [place] [address] [place] [address] Social History Tobacco Use Types [...] [facility] [address] [place] [address] Bartolo Dumont MD [address] [place] [address] [place] [address] documented as of this encounter Visit Diagnoses Not on filedocumented in this encounter Care Teams Recruiting Specialist Relationship Specialty Start Date End Date Raul Robles MD [address] [place], [place] [phone] PCP - General Internal Medicine 10/01/22 documented as of this encounter
--- OUTSIDE RECORDS SUMMARY | 2024-10-27 09:09 | XMS_ITS | Encounter Summary ---
Author Organization [facility] Address [address] [place] [address] Phone Care Team Providers Care Insurance Professional Name Role Phone Raul Robles MD Primary Care Provider +1- [phone] Encounter Details Date Type Department Care Team (Late st Contact Info) Description 04/24/2023 Documentation Only [facility] [address] [place] [address] Judy Dunlap [address] [place] [id number] Social History Tobacco Use Types Packs/Day Years [...] [facility] [address] [place] [address] Bartolo Dumont MD [address] [place] [address] [place] [address] documented as of this encounter Visit Diagnoses Not on filedocumented in this encounter Care Teams Insurance Professional Relationship Specialty Start Date End Date Raul Robles MD [address] [place], [place] [phone] PCP - General Internal Medicine 10/01/22 documented as of this encounter
--- OUTSIDE RECORDS SUMMARY | 2024-10-27 09:09 | XMS_ITS | Clinical Summary ---
Author Organization [facility] [place], Address [address] [place] [address] [place] [address] Phone Care Team Providers Care Section Laborer Name Role Phone Raul Robles MD Primary Care Provider +1- [phone] Allergies Active Allergy Reactions Criticality Noted Date [...] [facility] [address] [place] [address] Bartolo Dumont MD 08/17/2024 1:45 PM EDT Office Visit [facility] [address] [place] [address] Bartolo Dumont MD Stage 3b chronic kidney [...] [facility] [address] [place] [address] Bartolo Dumont MD [address] [place] [address] Health Maintenance Due Date Last [...] patient's age to complete this topic [place] [address] Care Teams Section Laborer Relationship Specialty Start Date End Date Raul Robles MD [address] [place] [address] PCP - General Internal Medicine 10/01/22
--- OUTSIDE RECORDS SUMMARY | 2024-10-27 09:09 | XMS_ITS | Encounter Summary ---
Author Organization [facility] Address [address] [place] [address] Phone Care Team Providers Care Roll Scale Man Name Role Phone Raul Robles MD Primary Care Provider +1- [phone] Encounter Details Date Type Department Care Team (Late Contact Info) Description 10/29/2022 Documentation Only [facility] Dr [address] HANKINS [address] [place] [phone] Fernando Blanco MD [address] [place] [address] [place] [address] Social History Tobacco Use Types Packs/Day Years Used Date Smoking Tobacco: Never Assessed Sex and Gender Information Value Date Recorded Sex Assigned at Not on file Legal Sex Male 2:25 PM EDT Gender Identity Not on file Sexual Orientation Not on file documented as of this encounter Plan of Treatment Upcoming Encounters Date Type Department Care Team (Late Contact Info) Description 03/01/2025 1:30 PM EST Office Visit [facility] [address] [place] [address] Bartolo Dumont MD [address] [place] [address] [place] [address] documented as of this encounter Visit Diagnoses Not on filedocumented in this encounter Care Teams Roll Scale Man Relationship Specialty Start Date End Date Raul Robles MD [address] [place] [address] PCP - General Internal Medicine 10/01/22 documented as of this encounter
--- OUTSIDE RECORDS SUMMARY | 2024-10-27 09:09 | XMS_ITS | Encounter Summary ---
Author Organization [facility] Address [address] [place] [address] Phone Care Team Providers Care Meal Grinder Tender Name Role Phone Raul Robles MD Primary Care Provider +1- [phone] Encounter Details Date Type Department Care Team (Late st Contact Info) Description 06/03/2024 Documentation Only [facility] [address] [place] [address] Teodora Lozada [place] [address] [place] [phone] Social History Tobacco Use Types Packs/Day Years [...] [facility] [address] [place] [address] Bartolo Dumont MD [address] [facility] [place] [address] documented as of this encounter Visit Diagnoses Not on filedocumented in this encounter Care Teams Meal Grinder Tender Relationship Specialty Start Date End Date Raul Robles MD [address] [place], [place] [phone] PCP - General Internal Medicine 10/01/22 documented as of this encounter
--- OUTSIDE RECORDS SUMMARY | 2024-10-27 09:09 | XMS_ITS | Encounter Summary ---
Author Organization [facility] Address [address] [place] [address] Phone Care Team Providers Care Clinical Case Manager Name Role Phone Raul Robles MD Primary Care Provider +1- [phone] Encounter Details Date Type Department Care Team (Late st Contact Info) Description 10/29/2022 Documentation Only [facility] [address] [place] [address] Bartolo Dumont MD [address] [place] [address] [place] [address] Social History Tobacco Use Types [...] Visit [facility] [address] [place] [address] Bartolo Dumont MD [address] [place] [address] [place] [address] documented as of this encounter Visit Diagnoses Not on filedocumented in this encounter Care Teams Clinical Case Manager Relationship Specialty Start Date End Date Raul Robles MD [address] [place], [place] [phone] PCP - General Internal Medicine 10/01/22 documented as of this encounter
--- OUTSIDE RECORDS SUMMARY | 2024-10-27 09:09 | XMS_ITS | Encounter Summary ---
Author Organization [facility] Address [address] [place] [address] Phone Care Team Providers Care Safety Tech Name Role Phone Raul Robles MD Primary Care Provider +1- [phone] Encounter Details Date Type Department Care Team (Late st Contact Info) Description 10/16/2022 Documentation Only [facility] [address] [place] [address] Bartolo Dumont MD [address] [place] [address] [place] [address] Social History Tobacco Use Types [...] [facility] [address] [place] [address] Bartolo Dumont MD [address] [place] [address] [place] [address] documented as of this encounter Visit Diagnoses Not on filedocumented in this encounter Care Teams Safety Tech Relationship Specialty Start Date End Date Raul Robles MD [address] [place], [place] [phone] PCP - General Internal Medicine 10/01/22 documented as of this encounter
--- OUTSIDE RECORDS SUMMARY | 2024-10-27 09:09 | XMS_ITS | Encounter Summary ---
Author Organization [facility] Address [address] [place] [address] Phone Care Team Providers Care Line Runner Name Role Phone Raul Robles MD Primary Care Provider +1- [phone] Encounter Details Date Type Department Care Team (Late st Contact Info) Description 10/29/2022 Documentation Only [facility] [address] [place] [address] Bartolo Dumont MD [address] [place] [address] [place] [address] Social History Tobacco Use Types [...] Visit [facility] [address] [place] [address] Bartolo Dumont MD [address] [place] [address] [place] [address] documented as of this encounter Visit Diagnoses Not on filedocumented in this encounter Care Teams Line Runner Relationship Specialty Start Date End Date Raul Robles MD [address] [place], [place] [phone] PCP - General Internal Medicine 10/01/22 documented as of this encounter
--- OUTSIDE RECORDS SUMMARY | 2024-10-27 09:09 | XMS_ITS | Encounter Summary ---
Author Organization [facility] Address [address] [place] [address] Phone Care Team Providers Care Sign Board Erector Name Role Phone Raul Robles MD Primary Care Provider +1- [phone] Encounter Details Date Type Department Care Team (Late st Contact Info) Description 08/22/2024 Documentation Only [facility] [address] [place] [address] Bartolo Dumont MD [address] [place] [address] [place] [address] Social History Tobacco Use Types [...] Visit [facility] [address] [place] [address] Bartolo Dumont MD [address] [place] [address] [place] [address] documented as of this encounter Visit Diagnoses Not on filedocumented in this encounter Care Teams Sign Board Erector Relationship Specialty Start Date End Date Raul Robles MD [address] [place] [address] PCP - General Internal Medicine 10/01/22 documented as of this encounter
== END 2024-10-27 09:27 | disposition home or self-care (01) ==
LOC: HO.HMCH 08:39
PROVIDERS: PCP Internal Medicine; Visit Provider Internal Medicine
DX: I12.9 Hypertensive chronic kidney disease with stage 1 through stage 4 chronic kidney disease, or unspecified chronic kidney disease (principal); E11.9 Type 2 diabetes mellitus without complications; N18.32 Chronic kidney disease, stage 3b; F10.20 Alcohol dependence, uncomplicated; E66.3 Overweight; Z68.26 Body mass index [BMI] 26.0-26.9, adult; I25.2 Old myocardial infarction; I25.10 Atherosclerotic heart disease of native coronary artery without angina pectoris; E78.00 Pure hypercholesterolemia, unspecified; M10.00 Idiopathic gout, unspecified site; K22.2 Esophageal obstruction; R41.3 Other amnesia

== ENCOUNTER → 2024-10-27 08:39 | Outpatient (BNVA) | payer OTHER, MEDICARE, SELFPAY ==
[2023-06-24 11:59] VITALS: BP 110/68; BP 112/76; BP 130/70; BMI 26.0
== END ==
PROVIDERS: PCP Internal Medicine; Visit Provider Internal Medicine
DX: I25.10 Atherosclerotic heart disease of native coronary artery without angina pectoris (principal); I21.4 Non-ST elevation (NSTEMI) myocardial infarction; E78.00 Pure hypercholesterolemia, unspecified; M10.00 Idiopathic gout, unspecified site; E11.22 Type 2 diabetes mellitus with diabetic chronic kidney disease; I12.9 Hypertensive chronic kidney disease with stage 1 through stage 4 chronic kidney disease, or unspecified chronic kidney disease; N18.32 Chronic kidney disease, stage 3b; K22.2 Esophageal obstruction; R41.3 Other amnesia; L28.0 Lichen simplex chronicus; L81.9 Disorder of pigmentation, unspecified; F10.20 Alcohol dependence, uncomplicated; E66.3 Overweight; R30.0 Dysuria; E55.9 Vitamin D deficiency, unspecified; D64.9 Anemia, unspecified; M10.9 Gout, unspecified; E53.8 Deficiency of other specified B group vitamins; Z68.26 Body mass index [BMI] 26.0-26.9, adult
CPT/HCPCS: 96127

== ENCOUNTER → 2024-11-04 23:59 | Outpatient (BNV) | payer OTHER, MEDICARE, SELFPAY ==
[2023-06-24 11:59] VITALS: BP 110/68; BP 112/76; BP 130/70; BMI 26.0
--- NOTE | 2024-12-17 13:16 | MHC.OFFVIS ---
Intake Visit Reasons: Remote HF monitoring- [employer] Allergies ramipril Allergy (Severe, Verified 10/27/24 09:17) angioedema rosuvastatin Adverse Reaction (Intermediate, Verified 10/27/24 09:17) recurrent choking sensation in throat when taking med PFSH Medical History Chronic kidney disease, stage III (moderate) Alcoholism Lichen simplex chronicus Coronary artery disease involving bypass graft of transplanted heart Diabetes mellitus Overweight (BMI 25.0-29.9) Dyschromia Esophageal stricture Coronary artery disease Gout Pure hypercholesterolemia Benign essential hypertension Surgical History S/P CABG x 4 (~04/10/22) History of percutaneous coronary intervention (~2008) History of coronary angioplasty (~1998) History of colonoscopy Varicose vein of leg Family History Father Medical history unknown Mother Diabetes Hypertension Social History Housing: House Alcohol intake: current Alcohol intake frequency: holidays/special occasions only Patient Tobacco Use Status: Former Tobacco user Years Smoked: 25 +/- e-Cigarette/Vaping Use: Never Used Second Hand Smoke Exposure: Yes service: No Current occupational status: retired Cognitive needs: No Hearing needs: No Vision needs: No Office Procedures Cardiac Device Check Cardiac Device Check Details: HF monitoring Stable thoracic impedance. [id number] Cardiac Device Interrogation, cardio physiologic monitor Procedure code (CPT) selection complete Assessment & Plan Assessment & Plan (1) Ischemic cardiomyopathy: Code(s): I25.5 - Ischemic cardiomyopathy Category: Medical Plan Coding Level of Care Code Procedure Only Diagnoses Ischemic cardiomyopathy I25.5 CPT Codes Cardiac Device Check - Cardiac Device 15: [id number] Cardiac Device Interrogation, cardio physiologic monitor ([id number])
== END ==
PROVIDERS: PCP Internal Medicine; Visit Provider Internal Medicine Cardiovascular Disease
DX: I25.5 Ischemic cardiomyopathy (principal); Z95.0 Presence of cardiac pacemaker
CPT/HCPCS: 93297

== ENCOUNTER → 2024-11-15 23:59 | Outpatient (BNV) | payer OTHER, MEDICARE, SELFPAY ==
[2023-06-24 11:59] VITALS: BP 110/68; BP 112/76; BP 130/70; BMI 26.0
--- NOTE | 2024-12-19 20:37 | MHC.OFFVIS ---
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 Diabetes mellitus Overweight (BMI 25.0-29.9) Dyschromia Esophageal stricture Coronary artery disease Gout Pure hypercholesterolemia Benign essential hypertension Surgical History S/P CABG x 4 (~04/10/22) History of percutaneous coronary intervention (~2008) History of coronary angioplasty (~1998) History of colonoscopy Varicose vein of leg Family History Father Medical history unknown Mother Diabetes Hypertension Social History Housing: House Alcohol intake: current Alcohol intake frequency: holidays/special occasions only Patient Tobacco Use Status: Former Tobacco user Years Smoked: 25 +/- e-Cigarette/Vaping Use: Never Used Second Hand Smoke Exposure: Yes service: No Current occupational status: retired Cognitive needs: No Hearing needs: No Vision needs: No Office Procedures Cardiac Device Check Cardiac Device Check Details: PPM Good battery V-paced 97% No new alerts. [id number] Cardiac Device Interrogation, pacemaker Procedure code (CPT) selection complete Assessment & Plan Assessment & Plan (1) Pacemaker: Code(s): Z95.0 - Presence of cardiac pacemaker Category: Medical Plan: Coding Level of Care Code Procedure Only Diagnoses Pacemaker Z95.0 CPT Codes Cardiac Device Check - Cardiac Device 12: [id number] Cardiac Device Interrogation, pacemaker ([id number])
== END ==
PROVIDERS: PCP Internal Medicine; Visit Provider Internal Medicine Cardiovascular Disease
DX: Z45.018 Encounter for adjustment and management of other part of cardiac pacemaker (principal)
CPT/HCPCS: 93294

== ENCOUNTER → 2024-12-16 23:59 | Outpatient (BNV) | payer OTHER, MEDICARE, SELFPAY ==
[2023-06-24 11:59] VITALS: BP 110/68; BP 112/76; BP 130/70; BMI 26.0
--- NOTE | 2024-12-19 21:38 | MHC.OFFVIS ---
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 Diabetes mellitus Overweight (BMI 25.0-29.9) Dyschromia Esophageal stricture Coronary artery disease Gout Pure hypercholesterolemia Benign essential hypertension Surgical History S/P CABG x 4 (~04/10/22) History of percutaneous coronary intervention (~2008) History of coronary angioplasty (~1998) History of colonoscopy Varicose vein of leg Family History Father Medical history unknown Mother Diabetes Hypertension Social History Housing: House Alcohol intake: current Alcohol intake frequency: holidays/special occasions only Patient Tobacco Use Status: Former Tobacco user Years Smoked: 25 +/- e-Cigarette/Vaping Use: Never Used Second Hand Smoke Exposure: Yes service: No Current occupational status: retired Cognitive needs: No Hearing needs: No Vision needs: No Office Procedures Cardiac Device Check Cardiac Device Check Details: HF monitoring Stable thoracic impedance. [id number] Cardiac Device Interrogation, cardio physiologic monitor Procedure code (CPT) selection complete Assessment & Plan Assessment & Plan (1) Ischemic cardiomyopathy: Code(s): I25.5 - Ischemic cardiomyopathy Category: Medical Plan Coding Level of Care Code Procedure Only Diagnoses Ischemic cardiomyopathy I25.5 CPT Codes Cardiac Device Check - Cardiac Device 15: [id number] Cardiac Device Interrogation, cardio physiologic monitor ([id number])
== END ==
PROVIDERS: PCP Internal Medicine; Visit Provider Internal Medicine Cardiovascular Disease
DX: I25.5 Ischemic cardiomyopathy (principal); Z95.0 Presence of cardiac pacemaker
CPT/HCPCS: 93297

== ENCOUNTER → 2025-01-30 12:45 | Outpatient (BNV) | payer OTHER, MEDICARE, SELFPAY ==
[2023-06-24 11:59] VITALS: BP 110/68; BP 112/76; BP 130/70; BMI 26.0
== END ==
PROVIDERS: PCP Internal Medicine; Visit Provider Internal Medicine Cardiovascular Disease
DX: Z45.018 Encounter for adjustment and management of other part of cardiac pacemaker (principal)
CPT/HCPCS: 93297

== ENCOUNTER 2025-02-01 10:21 | Outpatient (AMB) | payer OTHER, MEDICARE, SELFPAY ==
[2023-06-24 11:59] VITALS: BP 110/68; BP 112/76; BP 130/70; BMI 26.0
[2025-02-01 10:25] VITALS: BP 120/70; PULSE 76; BMI 26.0
--- NOTE | 2025-02-01 10:25 | A.OFFVIS_ITS ---
Vital Signs 02/01/25 10:25 Height 5 ft 4 in Weight 151 lb 10.848 oz BMI 26.0 BP 120/70 Blood Pressure Location Lt brachial Position Sitting Pulse 76 Pulse Source Pulse Oximeter Intake Visit Reasons: r/s-f/up Radiation Protection Specialist Required: No Accompanied by: Spouse Allergies ramipril Allergy (Severe, Verified 10/27/24 09:17) angioedema rosuvastatin Adverse Reaction (Intermediate, Verified 10/27/24 09:17) recurrent choking sensation in throat when taking med Medication List - Last Reconciled 02/01/25 by Lakhwinder Booker MD amlodipine 10 mg PO DAILY aspirin 81 mg PO DAILY atorvastatin 80 mg PO DAILY 90 days betamethasone dipropionate 0.05% 1 appl topical BID PRN blood sugar diagnostic (FreeStyle Lite Strips) As directed 3 times per day carvedilol 3.125 mg PO BID 90 days clopidogrel 75 mg PO DAILY 90 days colchicine 0.6 mg PO DAILY 90 days doxepin 10 mg PO BEDTIME 90 days hydrochlorothiazide 12.5 mg (1/2 x 25 mg) PO DAILY Jardiance (empagliflozin) 25 mg PO QAM 90 days NS lancets (FreeStyle Lancets) As directed 3 times per day metformin ER 500 mg PO BID 90 days pantoprazole 40 mg PO DAILY 90 days pen needle, diabetic (Comfort EZ Pen [place]) As directed HPI Comments Details: 75-year-old gentleman here for follow-up. He was previously being monitored for hypertension and stable coronary disease. It appears he got admitted to [facility] with NSTEMI and was taken for cardiac catheterization which revealed multivessel disease. He had kghm-fp-wqgwfmpv LV as well as RV dysfunction and was taken for coronary artery bypass surgery. He was on pressors afterwards but recovered fortunately. He has been doing well since then. He underwent cardiac rehabilitation and has completed that at this stage. Post bypass he had echocardiography performed which showed anxx-lf-gwgmzthz LV dysfunction with EF of 35-40% with inferior wall akinesis. He also has severely decreased right ventricular function. 08/27/22: He returns for follow-up. He is saying he has completed cardiac rehabilitation at this point and is walking on his own without any chest discomfort shortness of breath. He has hoarseness of his voice and he is saying this has been present since the bypass surgery. He has not had any breathing issues or stridor. He is taking multiple medications currently. His blood pressure control is good. His family accompanied him and they had question about 1 of his medication but did not know which medication it is. Overall he is feeling better. I have advised him that he should be exercising regularly. 06/24/23: He returns for follow-up. He is denying any symptoms on follow-up. His blood pressure is elevated. Manual blood pressure is 150/100. Previously was taking carvedilol 6.25 mg and hydrochlorothiazide 25 mg daily. He has currently not on hydrochlorothiazide anymore. Previously had angioedema with ramipril so NIKHIL inhibitor/ARB can not be used. He has cebp-gj-duzszvhw RV dysfunction on repeat echocardiography but his LV ejection fraction is normal 55-60% with basal inferior akinesis. The pointed out that Therese has been drinking more alcohol. He is saying that he drinks vodka shots occasionally and does not drink heavily. 09/30/2023: He returns for follow-up. Blood pressure is much better on follow- up. Denying any chest discomfort shortness of breath. Does not appear to be very active and only walks inside his house. I have advised him that he should be exercising regularly. It appears during his admission he also had a pacemaker placed which I was not aware off. He has been going to [facility] for device check and monitoring. 02/10/2020: He returns for follow-up. He has been doing well. No chest pain or shortness of breath. Blood pressure is well controlled. 06/08/2024: He is here for follow-up. He has been doing well. He is saying he is trying to do regular walks. Definitely looks better than before. Reviewing his labs recently he has potassium is 3.2. His LDL is 55 which is perfect. Overall he has been feeling better. 02/01/2025: He is here for follow-up. He has been doing well. No chest discomfort shortness of breath. He is saying he exercises from time to time and does pushups up to 10 at a time. He also has walking and has no exertional complaints. Blood pressure well controlled. Taking medications regularly. 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 Diabetes mellitus Overweight (BMI 25.0-29.9) Dyschromia Esophageal stricture Coronary artery disease Gout Pure hypercholesterolemia Benign essential hypertension Surgical History S/P CABG x 4 (~04/10/22) History of percutaneous coronary intervention (~2008) History of coronary angioplasty (~1998) History of colonoscopy Varicose vein of leg Family History Father Medical history unknown Mother Diabetes Hypertension Social History Housing: House Alcohol intake: current Alcohol intake frequency: holidays/special occasions only Patient Tobacco Use Status: Former Tobacco user Years Smoked: 25 +/- e-Cigarette/Vaping Use: Never Used Second Hand Smoke Exposure: Yes service: No Current occupational status: retired Cognitive needs: No Hearing needs: No Vision needs: No Review of Systems Const Denies chills, Denies fatigue, Denies fever(s), Denies frequent falls, Denies weakness, Denies weight gain and Denies weight loss ENT Denies dizziness Card Denies chest pain, Denies leg edema, Denies lightheadedness, Denies palpitations, Denies dyspnea and Denies dyspnea on exertion Resp Denies cough, Denies dyspnea and Denies dyspnea on exertion GI Denies hematochezia Musc Denies abnormal gait, Denies muscle weakness, Denies numbness, Denies radiating pain into limb and Denies tingling Neuro Denies abnormal gait, Denies dizziness, Denies frequent falls, Denies numbness, Denies tingling and Denies weakness Endo Denies fatigue and Denies palpitations Physical Exam Vital Signs: Last Vital Signs Pulse 76 02/01/25 10:25 BP 120/70 02/01/25 10:25 BMI result Body Mass Index 26.0 GENERAL APPEARANCE: in no acute distress, pleasant. NECK: no carotid bruit, no jugular venous distention. SKIN: Midline sternotomy scar. HEART: no murmurs, regular rate and rhythm. LUNGS: clear to auscultation bilaterally. ABDOMEN: soft, nontender. EXTREMITIES: no edema. PERIPHERAL PULSES: equal. NEUROLOGIC: No gross deficits, AAO X 3 Assessment & Plan Assessment & Plan (1) S/P CABG (coronary artery bypass graft): Code(s): Z95.1 - Presence of aortocoronary bypass graft Category: Medical (2) Pacemaker: Code(s): Z95.0 - Presence of cardiac pacemaker Category: Medical Plan Pleasant 74-year-old gentleman who is here for follow-up. He has known history of coronary artery disease and underwent coronary artery bypass surgery in the past. In 04/14/2023 we repeated echocardiography which showed EF of 55-60% with basal inferior akinesis. Normal right ventricular cavity size with lauo-cn-nftowtbwyi decreased right ventricular systolic function. Clinically he has been stable and does not have any significant volume overload. He does not have any signs/symptoms of RV dysfunction/failure. Blood pressure well controlled. I have advised him to stop the baby aspirin. He will continue Plavix monotherapy from here onwards. Scripts were sent to his pharmacy. Thank you for allowing me to participate in the care of your patient. Please feel free to contact me if you have any questions. Medications: Refilled amlodipine 10 mg PO DAILY 90 tabs 3RF atorvastatin 80 mg PO DAILY 90 tabs 3RF 90 days E78.00 - Pure hypercholesterolemia, unspecified, I25.10 - Atherosclerotic heart disease of [place] coronary artery without angina pectoris carvedilol must administer with a meal/food 3.125 mg PO BID 180 tabs 3RF 90 days clopidogrel 75 mg PO DAILY 90 tabs 3RF 90 days hydrochlorothiazide 12.5 mg (1/2 x 25 mg) PO DAILY 45 tabs 3RF I10 - Essential (primary) hypertension Coding Level of Care Code Est Pt Level 4 (52561) Diagnoses S/P CABG (coronary artery bypass graft) Z95.1 Pacemaker Z95.0
== END 2025-02-01 10:48 | disposition home or self-care (01) ==
LOC: HO.HCS 10:21
PROVIDERS: PCP Internal Medicine; Visit Provider Internal Medicine Cardiovascular Disease
DX: Z95.1 Presence of aortocoronary bypass graft (principal); Z95.0 Presence of cardiac pacemaker
CPT/HCPCS: 99214

== ENCOUNTER 2025-02-17 10:12 | Outpatient (AMB) | payer OTHER, MEDICARE, SELFPAY ==
[2023-06-24 11:59] VITALS: BP 110/68; BP 112/76; BP 130/70; BMI 26.0
--- NOTE | 2025-02-17 10:14 | A.OFFPC_ITS ---
Vital Signs 02/17/25 10:15 Height 5 ft 4 in Weight 155 lb BMI 26.6 BP 118/70 Blood Pressure Location Lt brachial Position Sitting Respiration 18 Pulse 74 Pulse Source Pulse Oximeter Temp Source Temporal Artery Scan Pulse Oximetry (%) 100 Oxygen Delivery Method Room Air Intake Visit Reasons: Annual Exam - see comments Redrawer Required: No Accompanied by: Self / Same As Patient Allergies ramipril Allergy (Severe, Verified 02/17/25 10:27) angioedema rosuvastatin Adverse Reaction (Intermediate, Verified 02/17/25 10:27) recurrent choking sensation in throat when taking med Medication List - Last Reconciled 02/17/25 by NENA Thomas amlodipine 10 mg PO DAILY atorvastatin 80 mg PO DAILY 90 days betamethasone dipropionate 0.05% 1 appl topical BID PRN blood sugar diagnostic (FreeStyle Lite Strips) As directed 3 times per day carvedilol 3.125 mg PO BID 90 days clopidogrel 75 mg PO DAILY 90 days colchicine 0.6 mg PO DAILY 90 days doxepin 10 mg PO BEDTIME 90 days hydrochlorothiazide 12.5 mg (1/2 x 25 mg) PO DAILY Jardiance (empagliflozin) 25 mg PO QAM 90 days NS lancets (FreeStyle Lancets) As directed 3 times per day metformin ER 500 mg PO BID 90 days pantoprazole 40 mg PO DAILY 90 days pen needle, diabetic (Comfort EZ Pen [place]) As directed Tobacco use date assessed: 02/17/25 Fall risk assessment: No Falls in past year Last assessed Fall Risk: 02/17/25 Dental Screening Dental Screen Date: 02/17/25 Did you have a dental visit in the last 12 months?: No Did you have a dental problem in the last 6 months where you did not have access to dental care?: No Was dental information given to patient?: No HPI Annual Exam - see comments HPI Details Dentist: up to date, dentures Eye: up to date Snellen: Right: Left: Corrected vision: yes, glasses STI screening: Colonoscopy: cologuard Pap Smer: n/a PHQ-9: Flu:declines COVID: x2 Tdap:declines Diet:regular Exercise:walks every day The patient is a 75 year old male presenting for a physical exam. He was last seen by Dr. Robles in October. For health maintenance, the patient recently completed a Cologuard test for colon cancer screening, which was negative. He has not had a colonoscopy as he cannot undergo anesthesia due to a cardiac condition that requires clearance from cardiology. He had an eye exam within the past year and wears glasses. He uses dentures. Regarding immunizations, the patient declines the influenza vaccine. He has received the initial two COVID-19 vaccines but is not taking any more. His last tetanus shot was likely more than 10 years ago, but he defers an update at this time. Health Maintenance Colon cancer screening was addressed with a recent negative Cologuard test, which is an appropriate alternative given his cardiac risk with anesthesia. Immunizations were discussed; the patient declined the tetanus and influenza vaccines and further COVID-19 boosters. Social History - Employment: The patient is retired. - Diet: He follows a regular diet with n o special restrictions. - Exercise: He engages in walking for ph ysical activity. Results - Cologuard Test: Negative. [facility] Medical History Chronic kidney disease, stage III (moderate) Alcoholism Lichen simplex chronicus Coronary artery disease involving bypass graft of transplanted heart Diabetes mellitus Overweight (BMI 25.0-29.9) Dyschromia Esophageal stricture Coronary artery disease Gout Pure hypercholesterolemia Benign essential hypertension Surgical History S/P CABG x 4 (~04/10/22) History of percutaneous coronary intervention (~2008) History of coronary angioplasty (~1998) History of colonoscopy Varicose vein of leg Family History Father Medical history unknown Mother Diabetes Hypertension Social History Housing: House Alcohol intake: current Alcohol intake frequency: holidays/special occasions only Patient Tobacco Use Status: Former Tobacco user Years Smoked: 25 +/- e-Cigarette/Vaping Use: Never Used Second Hand Smoke Exposure: Yes service: No Current occupational status: retired Cognitive needs: No Hearing needs: No Vision needs: No Questionnaire PHQ-9 Over the last 2 weeks, how often have you been bothered by any of the following problems? Depression Screening Interpretation: Negative Depression Screening Done: Yes Source: Developed by Drs. Johnny Cuellar, Lilly Belle, Marcus Chambers and colleagues, with an educational lillie from [employer]. Thrive Questionnaire Date Thrive assessed: 02/17/25 I am a: Patient What is your living situation today?: I have a steady place to live Within the past 12 months, did the food you bought not last and you didn't have the money to get more?: I choose not to answer this question Within the past 12 months, did you worry whether your food would run out before you got money to buy more?: I choose not to answer this question Do you have trouble paying for medicines?: No Do you have trouble getting transportation to medical appointments?: I choose not to answer this question Do you have trouble paying your heating and electricity bill?: I choose not to answer this question Do you have trouble taking care of your child, family member or friend?: No Do you have trouble with day-to-day activities such as bathing, preparing meals, shopping, managing finances, etc.?: No Are you currently unemployed and looking for a job?: No Are you interested in more education?: No Currently or been in a relationship where the following occur: I choose not to answer THRIVE Score: 0 KAITLYN-7 AMB Questionnaire KAITLYN-7 Date KAITLYN - 7 assessed: 10/27/24 Source: Developed by Drs. Johnny Cuellar, Marcus Laguerre and colleagues, with an educational lillie from [employer]. Review of Systems Narrative Review of Systems - Cardiovascular: Denies chest pain, shortness of breath, heart palpitations, and leg swelling. - Neurological: Denies dizziness and headaches. - Gastrointestinal: Denies stomach pain or any change in bowel habits. - Genitourinary: Denies dysuria or any other urinary concerns. Const Denies chills, Denies fatigue, Denies fever(s) and Denies headache(s) ENT Denies dysphagia, Denies dizziness, Denies otalgia, Denies headache(s), Reports hearing loss, Denies neck pain, Denies odynophagia and Denies sore throat Card Denies chest pain, Denies rapid heart rate, Denies palpitations and Denies dyspnea Resp Denies chest congestion, Denies cough and Denies dyspnea GI Denies abdominal pain, Denies constipation, Denies dysphagia, Denies heartburn, Denies diarrhea, Denies nausea, Denies odynophagia and Denies vomiting Denies difficulty urinating, Denies dysuria, Denies nocturia and Denies urinary frequency Musc Denies back pain and Denies neck pain Skin/Breast Denies rash Neuro Denies Abnormal speech present, Denies dizziness and Denies headache(s) Endo Denies fatigue and Denies palpitations Physical exam (Primary Care) Vital Signs: Last Vital Signs Pulse 74 02/17/25 10:15 Resp 18 02/17/25 10:15 BP 118/70 02/17/25 10:15 Pulse Ox 100 02/17/25 10:15 Oxygen Delivery Method Room Air 02/17/25 10:15 BMI result Body Mass Index 26.6 Tobacco/Smoking Status: Tobacco use Status Tobacco use date assessed 02/17/25 02/17/25 10:26 Patient Tobacco Use Status Former Tobacco user 02/17/25 10:26 Tobacco use type 06/24/23 11:59 e-Cigarette/Vaping Use Never Used 02/17/25 10:26 Depression Screening Interpretation: Negative Thrive Assessment: Date of Thrive Assessment Date Thrive assessed 02/17/25 02/17/25 10:26 Currently or been in a relationship where the following occur: I choose not to answer Narrative Physical Exam - HEENT: Extraocular movements are intact. - Oropharynx is clear. - External auditory canals are clear bilaterally. - Neck: Supple, no lymphadenopathy noted on palpation. - Lungs: Clear to auscultation bilaterally. - Abdomen: Soft and non-tender on palpation. - Extremities: No lower extremity edema or calf pain. - Integumentary: Onychomycosis noted on a toenail. Const General: no acute distress and alert Nutritional Appearance: well nourished Orientation/consciousness: oriented to person, oriented to place and oriented to time HENME Ears: TM's normal bilaterally and EAC's normal General nose exam: Normal nasal mucous membranes and turbinates present Throat: Yes posterior oropharynx normal and Yes tonsils normal (no TP congestion) Eyes Conjunctivae: conjunctivae normal Sclerae: sclerae normal Pupils: Equal, round and reactive pupils present Neck Neck: Yes supple and No lymphadenopathy Thyroid: Thyroid normal Carotids: no bruits Resp Effort & Inspection: normal respiratory effort and not tachypneic Auscultation: clear to auscultation bilaterally, no rales and no wheezes Cardio Rate: regular rate Rhythm: regular rhythm Heart sounds: S1 normal heart sound present, S2 normal heart sound present and no murmurs GI Palpation (GI): Soft to palpation and nontender Auscultation: normal bowel sounds General: Yes no CVA tenderness Back/Spine/Pelvis Back: no CVA tenderness Thoracic/Lumbar Spine: No lumbar spinal tenderness Skin General skin exam: no rashes or lesions noted and dry skin Rashes: no rashes Neuro General: oriented to person, oriented to place and oriented to time Cranial nerves: Yes CN's II-XII intact bilaterally and Yes Equal, round and reactive pupils present Speech: No Abnormal speech present Gait exam (Neuro): Normal gait present Motor exam (neuro): no tremor noted Deep tendon reflexes (DTR's): Right triceps reflex intensity grade: 2+, Left triceps reflex intensity grade: 2+, Rt Biceps (C5, C6): 2+, Left biceps reflex intensity grade: 2+, Right brachioradialis reflex intensity grade: 2+, Left brachioradialis reflex intensity grade: 2+, Right patellar reflex intensity grade: 2+ and Left patellar reflex intensity grade: 2+ Extrem General: Yes no clubbing, cyanosis or edema Right upper extremity: full ROM Left upper extremity: full ROM Right lower extremity: full ROM; no edema Left lower extremity: full ROM; no edema Psych Mental Status: mental status grossly normal Speech and movement: Normal speech and movement present Affect: normal affect Attitude: cooperative Thought process: Normal thought process present Coding Level of Care Code Est Pt Prev Care >65y(46769) Diagnoses Annual physical exam Z00.00 Coronary artery disease involving [place] coronary artery of [place] heart without angina pectoris I25.10 Coronary Disease-Associated Artery/Lesion type: [place] artery [place] vs. transplanted heart: [place] heart Associated angina: without angina NSTEMI (non-ST elevated myocardial infarction) I21.4 Pure hypercholesterolemia E78.00 Type 2 diabetes mellitus without complication, without long-term current use of insulin E11.9 Diabetes mellitus type: type 2 Diabetes mellitus custodial insulin use: without custodial use Diabetes mellitus complication status: without complication Benign essential hypertension I10 Idiopathic gout, unspecified chronicity, unspecified site M10.00 Gout site: unspecified site Gout etiology: idiopathic Chronicity: unspecified Stage 3b chronic kidney disease N18.32 Chronic kidney disease stage 3 subtype: stage 3b (GFR 30-44) Esophageal stricture K22.2 Memory impairment R41.3 Lichen simplex chronicus L28.0 Dyschromia L81.9 Alcoholism F10.20 Overweight (BMI 25.0-29.9) E66.3 Time Spent (min) 34 Assessment & Plan Assessment & Plan (1) Annual physical exam: Code(s): Z00.00 - Encounter for general adult medical examination without abnormal findings Category: Medical Plan: Preventative guidelines reviewed with the patient. I performed a physical exam and reviewed the patient's health maintenance. We discussed his recent negative Cologuard test, which is a suitable alternative to colonoscopy given his cardiac history and concerns about anesthesia. I also discussed tetanus immunization, and we agreed to defer it as his risk of a relevant injury is low. The patient has labs ordered by Dr. Robles, and I advised him to complete them before his follow-up appointment next month. He confirmed he has an adequate supply of his current medications (2) Coronary artery disease: Comment: S/P multiple interventions - 1998, 2008 and 2022 (see surgical Hx) Code(s): I25.10 - Atherosclerotic heart disease of [place] coronary artery without angina pectoris Category: Medical Qualifiers: Coronary Disease-Associated Artery/Lesion type: [place] artery [place] v s. transplanted heart: [place] heart Associated angina: without angina Qualified Code(s): I25.10 - Atherosclerotic heart disease of [place] coronary artery without angina pectoris Plan: S/P multiple cardiac interventions over the years, most recently CABG x 4 (RASCON to LAD, SVG to PDA, SVG to distal circumflex and SVG to OM) on 04/10/[address] Yuly [place] at [facility] Continue low dose Aspirin 81 mg QD and Clopidogrel 75 mg QD; continue Carvedilol 3.125 mg BID (dose lowered in September 2022 due to TONI) Follow up with cardiology (Dr. Booker) regularly as scheduled (3) NSTEMI (non-ST elevated myocardial infarction): Code(s): I21.4 - Non-ST elevation (NSTEMI) myocardial infarction Category: Medical Plan: Patient was found to have NSTEMI on work ups when he presented to the ER at [facility] on 04/02/2022 with chest discomfort Coronary angiogram revealed multivessel (4-vessel) disease with 80% stenosis of the proximal LAD, 95% stenosis of the left circumflex and 70% stenosis of the mid RCA He eventually underwent coronary intervention with CABG x 4 Continue aggressive risk factor reduction, including BP, cholesterol and DM He is again presently asymptomatic from cardiac standpoint Follow up with cardiology as scheduled (4) Pure hypercholesterolemia: Code(s): E78.00 - Pure hypercholesterolemia, unspecified Category: Medical Plan: Results of his labs done a few days ago reviewed and discussed with patient and his Continue Atorvastatin 80 mg QD Will recheck his labs and fasting lipids in 4 months for follow up (5) Diabetes mellitus: Code(s): E11.9 - Type 2 diabetes mellitus without complications Category: Medical Qualifiers: Diabetes mellitus type: type 2 Diabetes mellitus custodial insulin use: without longwall machine operator helper use Diabetes mellitus complication status: without complication Qualified Code(s): E11.9 - Type 2 diabetes mellitus without complications Plan: His HgbA1c has inproved significantly from 9.7% to 6.0% on his labs done a few days ago - goal is at least <7.0% Reinforced low calorie diet/exercise as tolerated Continue Metformin ER 500 mg BID and Jardiance 25 mg Q AM His Lantus 10 units QD was discontinued during his recent hospitalization last year His adds that he has been more active and walking regularly for the past couple of months now and has lost some weight as well as a result (6) Benign essential hypertension: Code(s): I10 - Essential (primary) hypertension Category: Medical Plan: Reinforced low sodium diet - goal is systolic BP of 120 mm or less in light of his recent NSTEMI and CABG Continue Carvedilol 3.125 mg BID and HCTZ 12.5 mg QD His Amlodipine 10 mg, HCTZ 25 mg, Spironolactone 25 mg and Furosemide 20 mg were all discontinued back in September 2022 when he was admitted for TONI and hyperkalemia but he was started back on HCTZ by cardiology earlier this year (7) Gout: Code(s): M10.9 - Gout, unspecified Category: Medical Qualifiers: Gout site: unspecified site Gout etiology: idiopathic Chronicity: unspecified Qualified Code(s): M10.00 - Idiopathic gout, unspecified site Plan: Patient's serum uric acid level has improved from 10.7 to 8.1 on his recent labs Reinforced low purine diet - states that he's had no acute flare ups of gout lately Continue Colchicine 0.6 mg QD (8) Chronic kidney disease, stage III (moderate): Code(s): N18.30 - Chronic kidney disease, stage 3 unspecified Category: Medical Qualifiers: Chronic kidney disease stage 3 subtype: stage 3b (GFR 30-44) Qualified Code(s): N18.32 - Chronic kidney disease, stage 3b Plan: His renal function is mostly unchanged from previous on his recent labs and has been stable over the past year Will continue to monitor his serum creatinine level and GFR regularly (9) Esophageal stricture: Code(s): K22.2 - Esophageal obstruction Category: Medical Plan: Barium swallow done a couple of years ago showed (+) stricture/narrowing at the distal esophageal area Continue Pantoprazole 40 mg QD Follow up with GI as scheduled (10) Memory impairment: Code(s): R41.3 - Other amnesia Category: Medical Plan: Suspect MCI vs early dementia Continue Donepezil 10 mg Q HS Continue Doxepin 10 mg Q HS PRN to help with his anxiety at night He was previously referred to neurology for further evaluation and management but it does not look like he has been seen by neurology at all (11) Lichen simplex chronicus: Code(s): L28.0 - Lichen simplex chronicus Category: Medical Plan: Continue augmented topical Betamethasone cream 0.05% BID Follow up with dermatology as scheduled (12) Dyschromia: Code(s): L81.9 - Disorder of pigmentation, unspecified Category: Medical Plan: He was seen by dermatology a couple of years ago and 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), which is a benign issue but has no effective treatment options Continue Lotrisone cream BID PRN mostly for symptomatic relief (13) Alcoholism: Code(s): F10.20 - Alcohol dependence, uncomplicated Category: Medical Plan: His now states that patient has been drinking for a while now (years) but he was good at concealing this from everyone until recently States that he was drinking when he had his cardiac event last year and that this got worse for a while but he is now only drinking occasionally/socially (14) Overweight (BMI 25.0-29.9): Code(s): E66.3 - Overweight Category: Medical Plan: Reinforced diet; exercise and weight are somewhat limited due to his current comorbidities but patient is encouraged to continue to stay active as much as he can Plan Plan Patient was informed and verbally consented to the use of an ambient scribe for clinic note documentation during this visit. 1. Annual Physical Examination The patient will undergo laboratory testing ordered by Dr. Robles prior to his follow-up appointment. He has a scheduled follow-up with Dr. Robles next month on the . No medication refills are required at this time. Discussion Notes I performed a physical exam and reviewed the patient's health maintenance. We discussed his recent negative Cologuard test, which is a suitable alternative to colonoscopy given his cardiac history and concerns about anesthesia. I also discussed tetanus immunization, and we agreed to defer it as his risk of a relevant injury is low. The patient has labs ordered by Dr. Robles, and I advised him to complete them before his follow-up appointment next month. He confirmed he has an adequate supply of his current medications. Patient Instructions - Please get your lab work done before your next appointment with Dr. Smith. - Your follow-up appointment with Dr. Smith is on the of next month. - You do not need any medication refills at this time. - Continue your regular diet and walking for exercise.
[2025-02-17 10:15] VITALS: BP 118/70; PULSE 74; RESP 18; O2SAT 100; BMI 26.6
--- OUTSIDE RECORDS SUMMARY | 2025-02-17 10:16 | XMS_ITS | Encounter Summary ---
Author Organization [facility] Address [address] [place] [address] Phone Care Team Providers Care Software Developer Intern Name Role Phone Raul Robles MD Primary Care Provider [phone]- [phone] Encounter Details Date Type Department Care Team (Late Contact Info) Description 10/29/2022 Documentation Only [facility] Dr [address] HANKINS [address] [place] [phone] Fernando Blanco MD [address] [place] [address] [place] [address] Social History Tobacco Use Types [...] Visit [facility] [address] [place] [address] Bartolo Dumont MD [address] [place] [address] [place] [address] documented as of this encounter Visit Diagnoses Not on filedocumented in this encounter Care Teams Software Developer Intern Relationship Specialty Start Date End Date Raul Robles MD [address] [place] [address] PCP - General Internal Medicine 10/01/22 documented as of this encounter
--- OUTSIDE RECORDS SUMMARY | 2025-02-17 10:16 | XMS_ITS | Encounter Summary ---
Author Organization [facility] Address [address] [place] [address] Phone Care Team Providers Care Experimental Preflight Mechanic Name Role Phone Raul Robles MD Primary Care Provider [phone]- [phone] Encounter Details Date Type Department Care Team (Late st Contact Info) Description 08/22/2024 Documentation Only [facility] [address] [place] [address] Bartolo Dumont MD [address] [place] [address] [place] [address] Social History Tobacco Use Types [...] Visit [facility] [address] [place] [address] Bartolo Dumont MD [address] [place] [address] [place] [address] documented as of this encounter Visit Diagnoses Not on filedocumented in this encounter Care Teams Experimental Preflight Mechanic Relationship Specialty Start Date End Date Raul Robles MD [address] [place], [place] [phone] PCP - General Internal Medicine 10/01/22 documented as of this encounter
--- OUTSIDE RECORDS SUMMARY | 2025-02-17 10:16 | XMS_ITS | Encounter Summary ---
Author Organization [facility] Address [address] [place] [address] Phone Care Team Providers Care Staff Development Educator Name Role Phone Raul Robles MD Primary Care Provider [phone]- [phone] Encounter Details Date Type Department Care Team (Late st Contact Info) Description 10/29/2022 Documentation Only [facility] [address] [place] [address] Bartolo uDmont MD [address] [place] [address] [place] [address] Social History Tobacco Use Types [...] [facility] [address] [place] [address] Bartolo Dumont MD [address] [place] [address] [place] [address] documented as of this encounter Visit Diagnoses Not on filedocumented in this encounter Care Teams Staff Development Educator Relationship Specialty Start Date End Date Raul Robles MD [address] [place], [place] [phone] PCP - General Internal Medicine 10/01/22 documented as of this encounter
--- OUTSIDE RECORDS SUMMARY | 2025-02-17 10:16 | XMS_ITS | Encounter Summary ---
Author Organization [facility] Address [address] [place] [address] Phone Care Team Providers Care Juvenile Probation Officer Name Role Phone Raul Robles MD Primary Care Provider [phone]- [phone] Encounter Details Date Type Department Care Team (Late st Contact Info) Description 10/29/2022 Documentation Only [facility] [address] [place] [address] Bartolo Dumont MD [address] [place] [address] [place] [address] Social History Tobacco Use Types [...] Visit [facility] [address] [place] [address] Bartolo Dumont MD [address] [place] [address] [place] [address] documented as of this encounter Visit Diagnoses Not on filedocumented in this encounter Care Teams Juvenile Probation Officer Relationship Specialty Start Date End Date Raul Robles MD [address] [place], [place] [phone] PCP - General Internal Medicine 10/01/22 documented as of this encounter
--- OUTSIDE RECORDS SUMMARY | 2025-02-17 10:16 | XMS_ITS | Encounter Summary ---
Author Organization [facility] Address [address] [place] [address] Phone Care Team Providers Care Wax Pattern Assembler Name Role Phone Raul Robles MD Primary Care Provider +1- [phone] Encounter Details Date Type Department Care Team (Late st Contact Info) Description 04/24/2023 Documentation Only [facility] [address] [place] [address] Judy Dunlap [address] [place] [phone] Social History Tobacco Use Types Packs/Day Years [...] Visit [facility] [address] [place] [address] Bartolo Dumont MD [address] [place] [address] [place] [address] documented as of this encounter Visit Diagnoses Not on filedocumented in this encounter Care Teams Wax Pattern Assembler Relationship Specialty Start Date End Date Raul Robles MD [address] [place], [place] [phone] PCP - General Internal Medicine 10/01/22 documented as of this encounter
--- OUTSIDE RECORDS SUMMARY | 2025-02-17 10:16 | XMS_ITS | Encounter Summary ---
Author Organization [facility] Address [address] [place] [address] Phone Care Team Providers Care Netbackup Administrator Name Role Phone Raul Robles MD Primary Care Provider +1- [phone] Encounter Details Date Type Department Care Team (Late st Contact Info) Description 10/29/2022 Documentation Only [facility] [address] [place] [address] Bartolo Dumont MD [address] [place] [address] [place] [address] Social History Tobacco Use Types [...] [facility] [address] [place] [place] [address] Bartolo Dumont MD [address] [place] [address] [place] [address] documented as of this encounter Visit Diagnoses Not on filedocumented in this encounter Care Teams Netbackup Administrator Relationship Specialty Start Date End Date Raul Robles MD [address] [place], [place] [phone] PCP - General Internal Medicine 10/01/22 documented as of this encounter
--- OUTSIDE RECORDS SUMMARY | 2025-02-17 10:16 | XMS_ITS | Encounter Summary ---
Author Organization [facility] Address [address] [place] [address] Phone Care Team Providers Care Liability Claims Examiner Name Role Phone Raul Robles MD Primary Care Provider +1- [phone] Encounter Details Date Type Department Care Team (Late st Contact Info) Description 10/29/2022 Documentation Only [facility] [address] [place] [address] Bartolo Dumont MD [address] [place] [address] [place] [address] Social History Tobacco Use Types [...] [facility] [address] [place] [address] Bartolo Dumont MD [address] [place] [address] [place] [address] documented as of this encounter Visit Diagnoses Not on filedocumented in this encounter Care Teams Liability Claims Examiner Relationship Specialty Start Date End Date Raul Robles MD [address] [place], [place] [phone] PCP - General Internal Medicine 10/01/22 documented as of this encounter
--- OUTSIDE RECORDS SUMMARY | 2025-02-17 10:16 | XMS_ITS | Clinical Summary ---
Author Organization [facility] Address [address] [place] [address] [place] [address] Phone Care Team Providers Care Bi Architect Name Role Phone Raul Robles MD Primary Care Provider +1- [phone] Allergies Active Allergy Reactions Criticality Noted Date [...] in the morning 90 tablet 5 08/17/2024 Active Active Problems Problem Noted Date Diagnosed [...] Visit [facility] [address] [place] [place] [address] Bartolo Dumont MD [address] [place] [address] [place] [address] Health Maintenance Due Date Last [...] patient's age to complete this topic Insurance [facility] Care Teams Bi Architect Relationship Specialty Start Date End Date Raul Robles MD [address] [place] [address] [address] [place] [address] PCP - General Internal Medicine 10/01/22
--- OUTSIDE RECORDS SUMMARY | 2025-02-17 10:16 | XMS_ITS | Encounter Summary ---
Author Organization [facility] Address [address] [place] [address] Phone Care Team Providers Care Ceramic Restorer Name Role Phone Raul Robles MD Primary Care Provider +1- [phone] Encounter Details Date Type Department Care Team (Late st Contact Info) Description 10/29/2022 Documentation Only [facility] [address] [place] [place] [address] Bartolo Dumont MD [address] [place] [address] [place] [address] Social History Tobacco Use Types [...] [facility] [address] [place] [address] Bartolo Dumont MD [address] [place] [address] [place] [address] documented as of this encounter Visit Diagnoses Not on filedocumented in this encounter Care Teams Ceramic Restorer Relationship Specialty Start Date End Date Raul Robles MD [address] [place], [place] [phone] PCP - General Internal Medicine 10/01/22 documented as of this encounter
--- OUTSIDE RECORDS SUMMARY | 2025-02-17 10:16 | XMS_ITS | Encounter Summary ---
Author Organization [facility] Address [address] [place] [address] Phone Care Team Providers Care Physical Therapy Supervisor Name Role Phone Raul Robles MD Primary Care Provider +1- [phone] Encounter Details Date Type Department Care Team (Late st Contact Info) Description 06/03/2024 Documentation Only [facility] [address] [place] [address] Te[place]ora [place] [address] [place] [phone] Social History Tobacco Use Types Packs/Day Years [...] Visit [facility] [address] [place] [address] Bartolo Dumont MD [address] [facility] [place] [address] documented as of this encounter Visit Diagnoses Not on filedocumented in this encounter Care Teams Physical Therapy Supervisor Relationship Specialty Start Date End Date Raul Robles MD [address] [place], [place] [phone] PCP - General Internal Medicine 10/01/22 documented as of this encounter
--- OUTSIDE RECORDS SUMMARY | 2025-02-17 10:16 | XMS_ITS | Encounter Summary ---
Author Organization [facility] Address [address] [place] [address] Phone Care Team Providers Care Pals Nurse Name Role Phone Raul Robles MD Primary Care Provider +1- [phone] Encounter Details Date Type Department Care Team (Late st Contact Info) Description 10/16/2022 Documentation Only [facility] [address] [place] [address] Bartolo Dumont MD [address] [place] [address] [place] [address] Social History Tobacco Use Types [...] [facility] [address] [place] [address] Bartolo Dumont MD [address] [place] [address] [place] [address] documented as of this encounter Visit Diagnoses Not on filedocumented in this encounter Care Teams Pals Nurse Relationship Specialty Start Date End Date Raul Robles MD [address] [place], [place] [phone] PCP - General Internal Medicine 10/01/22 documented as of this encounter
== END 2025-02-17 10:42 | disposition home or self-care (01) ==
LOC: HO.HMCH 10:13
PROVIDERS: PCP Internal Medicine
DX: Z00.00 Encounter for general adult medical examination without abnormal findings (principal); I25.10 Atherosclerotic heart disease of native coronary artery without angina pectoris; I21.4 Non-ST elevation (NSTEMI) myocardial infarction; E78.00 Pure hypercholesterolemia, unspecified; E11.9 Type 2 diabetes mellitus without complications; I10 Essential (primary) hypertension; M10.00 Idiopathic gout, unspecified site; N18.32 Chronic kidney disease, stage 3b; K22.2 Esophageal obstruction; R41.3 Other amnesia; L28.0 Lichen simplex chronicus; F10.20 Alcohol dependence, uncomplicated; L81.9 Disorder of pigmentation, unspecified; E66.3 Overweight